=== PATIENT | male | born 1960 | race African-American/Black ===

== ENCOUNTER 2017-06-12 03:10 | Inpatient (IN) | payer SELFPAY ==
[2017-06-12 03:45] LABS: #Basophils 0.1 thou/uL (0.0-0.2); #Eosinphils 0.1 thou/uL (0.0-0.7); #Lymphocytes 1.4 thou/uL (1.20-3.40); %Basophils 0.4 % (0.0-1.0); %Eosinophils 0.3 % (0.0-10.0); %Lymphocytes 8.2 % (21.0-51.0); %Monocytes 5.8 % (0.0-10.0); %Neutrophils 85.3 % (42.0-75.0); Hemoglobin 16.6 g/dL (14.0-18.0); Mean Corpuscular HGB CONC 32.9 g/dL (32.0-36.0); Mean Corpuscular Hemoglobin 31.2 pg (27.0-31.0); Mean Platelet Volume 8.2 fL (7.4-10.4); Platelet Count 252 thou/uL (130-400); RBC Distribution Width 14.4 % (11.5-14.5); White Blood Cell (WBC) Count 16.4 thou/uL (4.8-10.8)
[2017-06-12 04:00] LABS: ALT (SGPT) 52 U/L (8-55); AST (SGOT) 44 U/L (5-34); Albumin 4.2 g/dL (3.5-5.0); Alkaline Phosphatase 80 U/L (40-150); Anion Gap 17 mmol/L (10-20); BUN (Urea Nitrogen) 15 mg/dL (8.4-25.7); Bilirubin, Total 0.7 mg/dL (0.2-1.2); Calc. Creatinine Clearance 0 mL/min (70-130); Calcium 9.8 mg/dL (7.8-10.44); Carbon Dioxide 22 mmol/L (22-29); Chloride 102 mmol/L (98-107); Estimated GFR-MDRD 79; Globulin 3.1 g/dL (2.4-3.5); Glucose 108 mg/dL (70-105); Lipase 77 U/L (8-78); Potassium 4.4 mmol/L (3.5-5.1); Protein, Total 7.3 g/dL (6.0-8.3); Sodium 137 mmol/L (136-145)
[2017-06-12 04:02] LABS: CKMB 4.6 ng/mL (0-6.6)
[2017-06-12 04:09] LABS: Troponin I 0.036 ng/mL (< 0.028)
[2017-06-12 04:12] LABS: PTT 110.4 SEC (22.9-36.1); Prothrombin Time 13.1 SEC (12.0-14.7)
[2017-06-12] MEDS ORDERED: Heparin 10,000 UNITS/1 ML VIAL ONE (04:17)
[2017-06-12] MEDS ORDERED: Fentanyl 100 MCG/2 ML VIAL ONE (04:22)
[2017-06-12] MEDS ORDERED: Aggrastat 12.5 MG/250 ML 250 ML ONE (04:22)
[2017-06-12] MEDS ORDERED: Adenosine 6 MG/2 ML VIAL ONE (04:26)
[2017-06-12] MEDS ORDERED: Nitroglycerin 100MG/250ML BOT 250 ML ONE (04:26)
[2017-06-12] MEDS ORDERED: Morphine 2 MG/ML SYRINGE SLOW IVP PRN (05:18)
[2017-06-12] MEDS ORDERED: Nitroglycerin 0.4 MG TAB 1 EACH SL PRN (05:18)
[2017-06-12] MEDS ORDERED: Ondansetron ODT 4 MG TAB PO PRN (05:21)
[2017-06-12] MEDS ORDERED: Acetaminophen 325 MG TAB PO PRN (05:21)
[2017-06-12] MEDS ORDERED: Aggrastat 12.5 MG/250 ML 250 ML IVPB SCH (05:30)
[2017-06-12] MEDS ORDERED: Sodium Chloride 0.9% 1,000 ML IV SCH (05:30)
[2017-06-12 06:00] VITALS: BMI 25.7
[2017-06-12 06:25] LABS: #Lymphocytes 1.2 thou/uL (1.20-3.40); #Monocytes 1.1 thou/uL (0.11-0.59); #Neutrophils 11.8 thou/uL (1.40-6.50); %Basophils 0.2 % (0.0-1.0); %Eosinophils 0.3 % (0.0-10.0); %Lymphocytes 8.3 % (21.0-51.0); %Monocytes 7.6 % (0.0-10.0); %Neutrophils 83.7 % (42.0-75.0); Hemoglobin 16.4 g/dL (14.0-18.0); Mean Corpuscular HGB CONC 31.6 g/dL (32.0-36.0); Mean Corpuscular Hemoglobin 30.5 pg (27.0-31.0); Mean Corpuscular Volume 96.5 fl (80.0-94.0); Mean Platelet Volume 8.4 fL (7.4-10.4); Platelet Count 263 thou/uL (130-400); RBC Distribution Width 14.5 % (11.5-14.5); Red Blood Cell (RBC) Count 5.37 mill/uL (4.70-6.10); White Blood Cell (WBC) Count 14.1 thou/uL (4.8-10.8)
[2017-06-12] MEDS ORDERED: TICAGRELOR 90 MG TABLET ONE (06:33)
--- NOTE | 2017-06-12 06:36 | HP ---
CHIEF COMPLAINT: Acute anterior myocardial infarction. HISTORY OF PRESENT ILLNESS: Mr. Cosme is a 56-year-old gentleman who comes to the hospital for chest pain. He was woken up at 1:30 a.m. with severe substernal chest pain. He came in about 3:00 a.m. and EKG was performed and showed evidence of anterior ST elevations, with also eleva tions in the inferior leads. The Collections Agent was activated and we took him emergently to the catheteriz ation lab when he was found to have an occluded distal LAD, had a thrombus there. This was wired suc cessfully, ballooned open, but it did not really open up. We did manual thrombectomy and actually to ok out large amounts of thrombus and the artery actually looked much better afterwards. We could not find a focal lesion to stent and we also did OCT of the LAD to make sure we were not missing any ulc erated plaque in the mid vessel at a bifurcation and this showed that there was some stenosis there, but nothing significant. There was no focal area of stenosis to place a stent in, the area looked mu ch better at the end of the procedure and his pain was gone. An Angio-Seal was placed in his right g roin and he was started on Aggrastat. PAST MEDICAL HISTORY: None. PAST SURGICAL HISTORY: None. MEDICATIONS: None. ALLERGIES: No known drug allergies. SOCIAL HISTORY: He smokes. He states he smokes about 5 cigarettes a day, sometimes he does not smok e at all. He drinks probably a beer a day, maybe a little more some other days. No drug use. FAMILY HISTORY: No early coronary artery disease. REVIEW OF SYSTEMS: A 12-point review of systems done, it was all negative unless stated in the histo ry of present illness. PHYSICAL EXAMINATION: VITAL SIGNS: Temperature 97.2, pulse 90, respiratory rate 18, satting 98% on 2 liters, blood pressur e 164/98. GENERAL: Awake, alert, oriented x3, in no distress. HEENT: Normocephalic, atraumatic. NECK: Supple. LUNGS: Clear. CARDIOVASCULAR: S1, S2, no S3 or S4. No murmurs, no rubs. ABDOMEN: Soft, positive bowel sounds. EXTREMITIES: No edema. SKIN: Warm and dry. LABORATORY WORK: Reviewed. White count of 16, hemoglobin 16, hematocrit 50, platelet count of 252. Coags were reviewed. Chemistry was reviewed. Troponin was 0.036 first draw, normal BUN and creatin ine, GFR 79. EKG: ST elevation in the anterior leads with lateral reciprocal changes and also elevations in the i nferior leads. Suggestive of a large wraparound in the LAD. ASSESSMENT AND PLAN: 1. Acute anterior ST elevation myocardial infarction. 2. Hypertension. 3. Tobacco abuse. PLAN: 1. He only received thrombectomy and there was no focal area to stent, so we will continue Aggrastat for a total of 12 hours. This can be stopped at that time and we will continue dual antiplatelet th erapy after that with Plavix and aspirin. He otherwise is pain free now and his STs have completely resolved. 2. We will do PPI for stress ulcer prophylaxis. 3. Echocardiogram pending. 4. We will get urine drug screen, lipid profile and BNP to have a baseline. 5. Code status is full code. 6. Disposition: Pending clinical evolution.
[2017-06-12 06:53] LABS: Cardiac Risk 2.3 (Less than 4.5)
[2017-06-12 06:55] LABS: Troponin I 8.272 ng/mL (< 0.028)
[2017-06-12 07:02] LABS: CKMB 43.3 ng/mL (0-6.6)
[2017-06-12 07:08] LABS: Amphetamine Not Detected (NotDetected); Barbiturates Screen Not Detected (NotDetected); Benzodiazepine Screen Not Detected (NotDetected); Cocaine Metabolite Screen Detected (NotDetected); Medtox Control Line Valid? VALID (VALID); Medtox Reader # READER 1; Methadone Not Detected (NotDetected); Methamphetamine Not Detected (NotDetected); Opiate Screen Not Detected (NotDetected); Oxycodone Screen Not Detected (NotDetected); Phencyclidine (PCP) Not Detected (NotDetected); THC/Cannabinoid Screen Not Detected (NotDetected); Tricyclic Screen Not Detected (NotDetected)
[2017-06-12] MEDS ORDERED: diphenhydrAMINE 50 MG/ML VIAL IVP SCH (08:30)
--- NOTE | 2017-06-12 08:42 | RAD ---
SINGLE VIEW OF THE CHEST: Comparison: None. History: Chest pain. FINDINGS: Single view of the chest shows a normal sized cardiomediastinal silhouette. There is no evidence of c onsolidation, mass, or pleural effusion. The bones are unremarkable. IMPRESSION: No evidence of acute cardiopulmonary disease. POS: OFF
--- NOTE | 2017-06-12 10:31 | CON ---
DATE OF CONSULTATION: 06/12/2017 He is a 56-year-old gentleman who was seen yesterday in the ER with chest pain early in the morning. Crushing pain, woke him up from sleep. Vomiting. He was seen by Dr. Simental, property technician, last night. He had a Physician Compensation Analyst procedure. Please review his note. He had an acute anterior lateral myocardial infarction. He had a PTCA with atherectomy done. Apparently no stents were placed in. Postop ICU, the reason for consultation. He has smoked he says off and on for most of his life without any prior history of TB, pneumonia or asthma. He has cocain e in his urine. He does use marijuana. . PAST MEDICAL HISTORY: Kidney stones. PAST SURGICAL HISTORY: None. CHRONIC MEDICATIONS: None. ALLERGIES: None. 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 PHYSICAL EXAMINATION: VITAL SIGNS: Blood pressure 160/100, pulse 110. Sats are 93-94, respirations 18. CHEST: Chest revealed bilateral wheezing. CARDIAC: Normal S1-S2. No gallops. ABDOMEN: Soft. No masses. LABORATORY: White count of 14,000, H&H 10 and 31, platelet count is normal. Troponin is 8. EKG nhi ws the above-mentioned anterolaterally ID. Cocaine in his urine. Chest x-ray was normal. IMPRESSION: 1. Status post anterolateral myocardial infarction, status post emergency cardiac catheterization. 2. Status post atherectomy. 3. Tobacco abuse. 4. Bronchospasm. 5. Substance abuse. PLAN: I have started nebs, continue supportive care, continue antiplatelet therapy as per Cardiology . I will follow while in the [facility].
[2017-06-12] MEDS: Aspirin 325 MG TAB PO SCH (10:39)
[2017-06-12] MEDS: Carvedilol 3.125 MG TAB PO SCH ×2 (10:40→20:05)
[2017-06-12] MEDS: Clopidogrel Bisulfate 75 MG TAB PO SCH (10:40)
[2017-06-12] MEDS ORDERED: Iopamidol 370 76% 100 ML VIAL ONE (11:45)
[2017-06-12] MEDS ORDERED: Iopamidol 370 76% 50 ML VIAL FS ONE (11:45)
[2017-06-12 12:04] LABS: #Lymphocytes 0.9 thou/uL (1.20-3.40); #Monocytes 1.2 thou/uL (0.11-0.59); #Neutrophils 14.5 thou/uL (1.40-6.50); %Basophils 0.2 % (0.0-1.0); %Eosinophils 0.2 % (0.0-10.0); %Lymphocytes 5.4 % (21.0-51.0); %Monocytes 7.4 % (0.0-10.0); %Neutrophils 86.8 % (42.0-75.0); Hemoglobin 16.4 g/dL (14.0-18.0); Mean Corpuscular HGB CONC 32.4 g/dL (32.0-36.0); Mean Corpuscular Hemoglobin 31.1 pg (27.0-31.0); Mean Corpuscular Volume 96.1 fl (80.0-94.0); Mean Platelet Volume 8.6 fL (7.4-10.4); Platelet Count 267 thou/uL (130-400); RBC Distribution Width 14.6 % (11.5-14.5); Red Blood Cell (RBC) Count 5.28 mill/uL (4.70-6.10); White Blood Cell (WBC) Count 16.7 thou/uL (4.8-10.8)
[2017-06-12 12:56] LABS: Troponin I 14.056 ng/mL (< 0.028)
[2017-06-12 12:57] LABS: CKMB 81.4 ng/mL (0-6.6)
[2017-06-12] MEDS ORDERED: Heparin 10,000 UNITS/ 10 ML VIAL ONE (15:03)
[2017-06-12] MEDS ORDERED: Nitroglycerin 0.4 MG TAB (25 Tab Bottle) ONE (15:03)
[2017-06-12] MEDS ORDERED: Sodium Chloride 0.9% (PF) 10 ML VIAL ONE (15:03)
[2017-06-12] MEDS ORDERED: Metoprolol Tartrate 5 MG/5 ML VIAL ONE (15:03)
[2017-06-12 17:43] LABS: #Basophils 0.1 thou/uL (0.0-0.2); #Lymphocytes 1.5 thou/uL (1.20-3.40); #Monocytes 1.9 thou/uL (0.11-0.59); #Neutrophils 11.4 thou/uL (1.40-6.50); %Basophils 0.3 % (0.0-1.0); %Eosinophils 0.1 % (0.0-10.0); %Lymphocytes 10.1 % (21.0-51.0); %Monocytes 12.5 % (0.0-10.0); %Neutrophils 76.9 % (42.0-75.0); Hemoglobin 14.5 g/dL (14.0-18.0); Mean Corpuscular HGB CONC 33.3 g/dL (32.0-36.0); Mean Corpuscular Hemoglobin 31.5 pg (27.0-31.0); Mean Corpuscular Volume 94.6 fl (80.0-94.0); Mean Platelet Volume 7.9 fL (7.4-10.4); Platelet Count 243 thou/uL (130-400); RBC Distribution Width 14.2 % (11.5-14.5); Red Blood Cell (RBC) Count 4.61 mill/uL (4.70-6.10); White Blood Cell (WBC) Count 14.8 thou/uL (4.8-10.8)
[2017-06-12] MEDS: Atorvastatin Calcium 40 MG TAB PO SCH (20:05)
[2017-06-12] MEDS ORDERED: FLU VACC QS2017-18 36 mo. & older 0.5 ML SYRINGE IM ONE (21:00)
[2017-06-12 23:32] LABS: #Eosinphils 0.1 thou/uL (0.0-0.7); #Lymphocytes 1.6 thou/uL (1.20-3.40); #Monocytes 1.6 thou/uL (0.11-0.59); #Neutrophils 10.4 thou/uL (1.40-6.50); %Basophils 0.3 % (0.0-1.0); %Eosinophils 0.5 % (0.0-10.0); %Lymphocytes 11.9 % (21.0-51.0); %Monocytes 11.7 % (0.0-10.0); %Neutrophils 75.6 % (42.0-75.0); Hemoglobin 14.1 g/dL (14.0-18.0); Mean Corpuscular HGB CONC 33.6 g/dL (32.0-36.0); Mean Corpuscular Hemoglobin 31.7 pg (27.0-31.0); Mean Corpuscular Volume 94.4 fl (80.0-94.0); Mean Platelet Volume 7.9 fL (7.4-10.4); Platelet Count 242 thou/uL (130-400); RBC Distribution Width 14.2 % (11.5-14.5); Red Blood Cell (RBC) Count 4.43 mill/uL (4.70-6.10); White Blood Cell (WBC) Count 13.8 thou/uL (4.8-10.8)
[2017-06-13 05:20] LABS: #Basophils 0.1 thou/uL (0.0-0.2); #Eosinphils 0.1 thou/uL (0.0-0.7); #Lymphocytes 1.7 thou/uL (1.20-3.40); #Monocytes 1.3 thou/uL (0.11-0.59); #Neutrophils 7.9 thou/uL (1.40-6.50); %Basophils 0.7 % (0.0-1.0); %Eosinophils 0.7 % (0.0-10.0); %Lymphocytes 15.2 % (21.0-51.0); %Monocytes 12.1 % (0.0-10.0); %Neutrophils 71.4 % (42.0-75.0); Hemoglobin 13.8 g/dL (14.0-18.0); Mean Corpuscular HGB CONC 33.2 g/dL (32.0-36.0); Mean Corpuscular Hemoglobin 31.2 pg (27.0-31.0); Mean Corpuscular Volume 94.2 fl (80.0-94.0); Mean Platelet Volume 8.1 fL (7.4-10.4); Platelet Count 230 thou/uL (130-400); RBC Distribution Width 14.2 % (11.5-14.5); Red Blood Cell (RBC) Count 4.41 mill/uL (4.70-6.10); White Blood Cell (WBC) Count 11.1 thou/uL (4.8-10.8)
[2017-06-13 05:32] LABS: ALT (SGPT) 46 U/L (8-55); AST (SGOT) 88 U/L (5-34); Albumin 3.5 g/dL (3.5-5.0); Alkaline Phosphatase 67 U/L (40-150); Anion Gap 15 mmol/L (10-20); BUN (Urea Nitrogen) 15 mg/dL (8.4-25.7); Bilirubin, Total 1.1 mg/dL (0.2-1.2); Calc. Creatinine Clearance 64 mL/min (70-130); Calcium 9.2 mg/dL (7.8-10.44); Carbon Dioxide 23 mmol/L (22-29); Chloride 104 mmol/L (98-107); Estimated GFR-MDRD 62; Globulin 2.7 g/dL (2.4-3.5); Glucose 122 mg/dL (70-105); Potassium 4.1 mmol/L (3.5-5.1); Protein, Total 6.2 g/dL (6.0-8.3); Sodium 138 mmol/L (136-145)
[2017-06-13 08:22] LABS: #Basophils 0.1 thou/uL (0.0-0.2); #Eosinphils 0.1 thou/uL (0.0-0.7); #Lymphocytes 1.6 thou/uL (1.20-3.40); #Monocytes 1.2 thou/uL (0.11-0.59); #Neutrophils 8.2 thou/uL (1.40-6.50); %Basophils 0.5 % (0.0-1.0); %Eosinophils 0.6 % (0.0-10.0); %Lymphocytes 14.2 % (21.0-51.0); %Neutrophils 73.7 % (42.0-75.0); Hemoglobin 13.9 g/dL (14.0-18.0); Mean Corpuscular HGB CONC 31.8 g/dL (32.0-36.0); Mean Corpuscular Hemoglobin 30.4 pg (27.0-31.0); Mean Corpuscular Volume 95.4 fl (80.0-94.0); Platelet Count 222 thou/uL (130-400); RBC Distribution Width 14.2 % (11.5-14.5); Red Blood Cell (RBC) Count 4.58 mill/uL (4.70-6.10); White Blood Cell (WBC) Count 11.1 thou/uL (4.8-10.8)
[2017-06-13] MEDS: Clopidogrel Bisulfate 75 MG TAB PO SCH (11:01)
[2017-06-13] MEDS: Aspirin 325 MG TAB PO SCH (11:01)
[2017-06-13] MEDS: Carvedilol 3.125 MG TAB PO SCH (11:01)
[2017-06-13 12:08] LABS: #Basophils 0.1 thou/uL (0.0-0.2); #Eosinphils 0.1 thou/uL (0.0-0.7); #Lymphocytes 1.4 thou/uL (1.20-3.40); #Monocytes 1.6 thou/uL (0.11-0.59); #Neutrophils 9.2 thou/uL (1.40-6.50); %Basophils 0.5 % (0.0-1.0); %Eosinophils 0.7 % (0.0-10.0); %Lymphocytes 11.1 % (21.0-51.0); %Monocytes 12.8 % (0.0-10.0); Hemoglobin 14.1 g/dL (14.0-18.0); Mean Corpuscular HGB CONC 32.9 g/dL (32.0-36.0); Mean Corpuscular Hemoglobin 31.2 pg (27.0-31.0); Mean Corpuscular Volume 94.8 fl (80.0-94.0); Mean Platelet Volume 8.2 fL (7.4-10.4); Platelet Count 233 thou/uL (130-400); RBC Distribution Width 14.1 % (11.5-14.5); Red Blood Cell (RBC) Count 4.51 mill/uL (4.70-6.10); White Blood Cell (WBC) Count 12.2 thou/uL (4.8-10.8)
--- NOTE | 2017-06-13 15:27 | PRG ---
DATE OF SERVICE: 06/12/2017 SUBJECTIVE: Mr. Robson Cosme, status post cardiac catheterization. This morning, he is doing well. No cough, no wheezing, no shortness of breath. PHYSICAL EXAMINATION: VITAL SIGNS: Sats are 95% on room air, pulse 80, blood pressure 128/80, respirations 18. CHEST: No wheezing, no crackles. CARDIAC: Normal S1, S2. No gallops. ABDOMEN: Soft, no masses. IMPRESSION: 1. Tobacco abuse. 2. Chronic obstructive pulmonary disease. 3. Cardiac catheterization. PLAN: Continue present treatment. Disposition as per Cardiology.
--- NOTE | 2017-06-13 17:03 | PDOC.CTH ---
Cardiology Progress Note - Subjective He is doing well. He has no chest pain, tightness, pressure, SOB. He is doing well. His groin is not oozing anymore. - Objective Vital Signs Temp Pulse Pulse Pulse Resp BP BP 06/13/17 14:14 76 12 06/13/17 12:00 97.8 F 89 18 06/13/17 09:53 81 105 H 145/88 H 116/73 06/13/17 08:00 97.4 F L 89 18 06/13/17 07:00 73 12 BP Pulse Ox Pulse Ox Pulse Ox 06/13/17 14:14 06/13/17 12:00 135/78 99 06/13/17 09:53 99 98 06/13/17 08:00 116/73 98 06/13/17 07:00 Weight 173 lb 14.4 oz 06/12/17 06/13/17 06/14/17 06:59 06:59 06:59 Intake Total 120 2554 600 Output Total 950 1650 Balance -830 904 600 - Physical Examination General/Neuro: alert & oriented x3, NAD Neck: no JVD present Lungs: CTA, unlabored respirations Heart: RRR Abdomen: NT/ND Extremities: other: (no edema) - Telemetry Telemetry Rhythm: NSR - Labs Result Diagrams: 06/13/17 11:52 06/13/17 04:46 Troponin/CKMB CK-MB (CK-2) 81.4 ng/mL (0-6.6) H* 06/12/17 11:54 Troponin I 14.056 ng/mL (< 0.028) H* 06/12/17 11:54 - Assessment/Plan 1. Acute anterior STEMI 2. Substance abuse. + Cocaine 3. Normal LV function, PLAN: - Will stop BB. - Continue Plavix and aspirin for life as well as statin - Counselled on cessation of cocaine use. - Will discharge home in the morning.
[2017-06-13 18:22] LABS: #Eosinphils 0.1 thou/uL (0.0-0.7); #Lymphocytes 1.2 thou/uL (1.20-3.40); #Monocytes 0.8 thou/uL (0.11-0.59); #Neutrophils 5.2 thou/uL (1.40-6.50); %Basophils 0.6 % (0.0-1.0); %Lymphocytes 16.5 % (21.0-51.0); %Monocytes 10.3 % (0.0-10.0); %Neutrophils 71.6 % (42.0-75.0); Hemoglobin 14.2 g/dL (14.0-18.0); Mean Corpuscular HGB CONC 32.2 g/dL (32.0-36.0); Mean Corpuscular Hemoglobin 30.9 pg (27.0-31.0); Platelet Count 90 thou/uL (130-400); RBC Distribution Width 14.9 % (11.5-14.5); Red Blood Cell (RBC) Count 4.61 mill/uL (4.70-6.10); White Blood Cell (WBC) Count 7.3 thou/uL (4.8-10.8)
[2017-06-13 18:23] LABS: PLT Morphology Comment Appears Decreased; RBC Morphology Normal
[2017-06-13] MEDS: Atorvastatin Calcium 40 MG TAB PO SCH (21:30)
[2017-06-13 23:29] LABS: #Basophils 0.1 thou/uL (0.0-0.2); #Eosinphils 0.1 thou/uL (0.0-0.7); #Lymphocytes 1.8 thou/uL (1.20-3.40); #Monocytes 1.4 thou/uL (0.11-0.59); #Neutrophils 6.5 thou/uL (1.40-6.50); %Basophils 0.6 % (0.0-1.0); %Monocytes 13.9 % (0.0-10.0); %Neutrophils 66.6 % (42.0-75.0); Hemoglobin 12.7 g/dL (14.0-18.0); Mean Corpuscular HGB CONC 33.2 g/dL (32.0-36.0); Mean Corpuscular Hemoglobin 31.5 pg (27.0-31.0); Mean Corpuscular Volume 94.8 fl (80.0-94.0); Mean Platelet Volume 7.9 fL (7.4-10.4); Platelet Count 203 thou/uL (130-400); Red Blood Cell (RBC) Count 4.04 mill/uL (4.70-6.10); White Blood Cell (WBC) Count 9.7 thou/uL (4.8-10.8)
--- NOTE | 2017-06-14 00:18 | EKG ---
Test Reason : POST BALLOON Blood Pressure : / mmHG Vent. Rate : 079 BPM Atrial Rate : 079 BPM P-R Int : 156 ms QRS Dur : 086 ms QT Int : 404 ms P-R-T Axes : 077 -26 031 degrees QTc Int : 463 ms Normal sinus rhythm Inferior infarct (cited on or before 12-JUN-2017) Abnormal ECG When compared with ECG of 12-JUN-2017 03:38, (Unconfirmed) Serial changes of evolving Inferior infarct Present Confirmed by Jessica SAWYER ([id number]) on 06/14/2017 12:17:30 AM Referred By: WILLIS Confirmed By:Jessica SAWYER
[2017-06-14 05:09] LABS: #Eosinphils 0.1 thou/uL (0.0-0.7); #Lymphocytes 1.5 thou/uL (1.20-3.40); #Monocytes 1.2 thou/uL (0.11-0.59); #Neutrophils 6.4 thou/uL (1.40-6.50); %Basophils 0.4 % (0.0-1.0); %Eosinophils 1.4 % (0.0-10.0); %Lymphocytes 16.4 % (21.0-51.0); %Monocytes 13.1 % (0.0-10.0); %Neutrophils 68.6 % (42.0-75.0); Hemoglobin 12.9 g/dL (14.0-18.0); Mean Corpuscular HGB CONC 33.1 g/dL (32.0-36.0); Mean Corpuscular Hemoglobin 31.5 pg (27.0-31.0); Platelet Count 216 thou/uL (130-400); Red Blood Cell (RBC) Count 4.09 mill/uL (4.70-6.10); White Blood Cell (WBC) Count 9.3 thou/uL (4.8-10.8)
[2017-06-14 05:25] LABS: ALT (SGPT) 35 U/L (8-55); AST (SGOT) 47 U/L (5-34); Albumin 3.3 g/dL (3.5-5.0); Alkaline Phosphatase 62 U/L (40-150); Anion Gap 12 mmol/L (10-20); BUN (Urea Nitrogen) 16 mg/dL (8.4-25.7); Bilirubin, Total 0.9 mg/dL (0.2-1.2); Calc. Creatinine Clearance 65 mL/min (70-130); Calcium 8.8 mg/dL (7.8-10.44); Carbon Dioxide 26 mmol/L (22-29); Chloride 104 mmol/L (98-107); Estimated GFR-MDRD 64; Globulin 2.6 g/dL (2.4-3.5); Glucose 103 mg/dL (70-105); Potassium 3.9 mmol/L (3.5-5.1); Protein, Total 5.9 g/dL (6.0-8.3); Sodium 138 mmol/L (136-145)
[2017-06-14 08:15] VITALS: BP 125/76; TEMP 98.9
--- NOTE | 2017-06-14 08:33 | DIS ---
DATE OF DISCHARGE: 06/14/2017 DISCHARGING PHYSICIAN: Jj Simental M.D. PRIMARY DIAGNOSES: 1. Anterior ST elevation myocardial infarction. 2. Substance abuse. PROCEDURES PERFORMED: 1. Echocardiogram. 2. Left heart catheterization. 3. Balloon angioplasty of the LAD and manual thrombectomy. 4. No stent was placed. SUMMARY: Mr. Cosme is a pleasant 56-year-old gentleman who comes to the hospital f or chest pain and was diagnosed with anterior ST elevations and taken emergently to the catheterizati on lab where he was found to have a blood clot in the distal LAD. This was wired, ballooned open and without any improvement we then had to do manual thrombectomy and restore flow successfully. There was no focal lesion or ulcerative plaque that could be stented, so he was treated with 2 B3 inhibitor s for 12 hours. He did well postoperatively. His echocardiogram showed normal LV function with no m ajor issues. He has done well postoperatively. His urine drug screen was positive for cocaine. We counseled him on substance cessation and he denied using any cocaine. He thinks it is from a cup dang t a friend gave him that had some cocaine in it. His blood pressure is borderline low to start any A CE inhibitors or beta lamar, so he will only go home on dual antiplatelet therapy and high dose sta tins. DISCHARGE MEDICATIONS: 1. Aspirin 325 mg a day. 2. Plavix 75 mg a day. 3. Lipitor 80 mg p.o. at bedtime. 4. No VALE inhibitor or beta lamar due to borderline low blood pressure. FOLLOW UP APPOINTMENTS: 1. Follow up appointment with myself in 1 month. 2. With primary care doctor in 2 weeks. Over 30 minutes were spent at bedside on discharge counseling.
[2017-06-14] MEDS: Clopidogrel Bisulfate 75 MG TAB PO SCH (10:21)
[2017-06-14] MEDS: Aspirin 325 MG TAB PO SCH (10:21)
--- NOTE | 2017-06-15 18:09 | EKG ---
Test Reason : Blood Pressure : / mmHG Vent. Rate : 093 BPM Atrial Rate : 093 BPM P-R Int : 148 ms QRS Dur : 074 ms QT Int : 358 ms P-R-T Axes : 073 -07 074 degrees QTc Int : 445 ms Normal sinus rhythm Inferior infarct , possibly acute Anterolateral injury pattern * ACUTE ND * ST elevation II, III, aVF V3-V5 ST depression aVR Abnormal ECG Confirmed by CAROLINE WHITFIELD D.O. ([id number]), film and video editor JUDE JORDAN ([id number]) on 06/15/2017 6:09:23 PM Referred By: ROSEANN Confirmed By:CAROLINE WHITFIELD D.O.
--- NOTE | 2017-06-15 18:10 | EKG ---
Test Reason : Blood Pressure : / mmHG Vent. Rate : 077 BPM Atrial Rate : 077 BPM P-R Int : 148 ms QRS Dur : 088 ms QT Int : 392 ms P-R-T Axes : 076 -07 071 degrees QTc Int : 443 ms Normal sinus rhythm Inferior infarct , possibly acute Anterolateral injury pattern * ACUTE NC * Abnormal ECG No changes Confirmed by CAROLINE WHITFIELD D.O. ([id number]), brands editor JUDE JORDAN ([id number]) on 06/15/2017 6:09:35 PM Referred By: BILLIE WHITFIELD Confirmed By:CAROLINE WHITFIELD D.O.
--- NOTE | 2017-06-23 16:15 | EKG ---
Test Reason : Blood Pressure : / mmHG Vent. Rate : 072 BPM Atrial Rate : 072 BPM P-R Int : 144 ms QRS Dur : 088 ms QT Int : 384 ms P-R-T Axes : 074 -26 019 degrees QTc Int : 420 ms Normal sinus rhythm Inferior infarct (cited on or before 12-JUN-2017) Abnormal ECG When compared with ECG of 12-JUN-2017 07:01, (Unconfirmed) No significant change was found Confirmed by Jessica SAWYER ([id number]) on 06/23/2017 4:15:35 PM Referred By: WILLIS Confirmed By:Jessica SAWYER
== END 2017-06-14 14:05 | disposition home or self-care (01) | DRG 251 ==
LOC: EDBD 03:10 → ERS 03:10 → CCU 03:58 → SDC/OP 04:01 → CCU 04:02 → 2NO 21:50
PROVIDERS: ADMIT Internal Medicine Cardiovascular Disease; ATTEND Internal Medicine Cardiovascular Disease
PROC: 02703ZZ Dilation of Coronary Artery, One Artery, Percutaneous Approach (ICD-10-PCS; principal; 2017-06-12)
PROC: 02C03ZZ Extirpation of Matter from Coronary Artery, One Artery, Percutaneous Approach (ICD-10-PCS; 2017-06-12)
PROC: 4A023N7 Measurement of Cardiac Sampling and Pressure, Left Heart, Percutaneous Approach (ICD-10-PCS; 2017-06-12)
PROC: B2111ZZ Fluoroscopy of Multiple Coronary Arteries using Low Osmolar Contrast (ICD-10-PCS; 2017-06-12)
DX: I21.09 ST elevation (STEMI) myocardial infarction involving other coronary artery of anterior wall (principal); F14.10 Cocaine abuse, uncomplicated; F17.210 Nicotine dependence, cigarettes, uncomplicated; I10 Essential (primary) hypertension; J44.9 Chronic obstructive pulmonary disease, unspecified
CPT/HCPCS: 36415; 71045; 80053; 80061; 80306; 82553; 83690; 83880; 84484; 85025; 85347; 85610; 85730; 86850; 86900; 86901; 87804; 90471; 90682; 90732; 92924; 92978; 93005; 93010; 93306; 93454; 93798; 94640; 94760; 96374; 99152; 99153; A4216; C1725; C1757; C1760; C1769; G0008; G0009; J0153; J1200; J1644; J3010; J3246; J7620; Q0162; Q2036

== ENCOUNTER 2017-10-15 10:04 | Emergency (ER) | payer SELFPAY ==
[2017-10-15 10:36] LABS: Bilirubin Negative (Negative); Blood, Urine Negative (Negative); Clarity CLEAR (Clear); Glucose, Urine (Dipstick) Negative (Negative); Leukocyte Negative (Negative); Nitrite Negative (Negative); Protein, Urine (Dipstick) Negative (Neg-Trace); Specific Gravity, Urine 1.024 (1.002-1.036)
[2017-10-15] MEDS ORDERED: ISOVUE-370 76%-LOCM 1 ML ONE (11:02)
[2017-10-15] MEDS ORDERED: Ondansetron ODT 4 MG TAB ONE (11:22)
[2017-10-15] MEDS ORDERED: Morphine 4 MG/ML VIAL ONE (11:22)
[2017-10-15 11:35] LABS: #Basophils 0.1 thou/uL (0.0-0.2); #Eosinphils 0.2 thou/uL (0.0-0.7); #Lymphocytes 1.1 thou/uL (1.20-3.40); #Monocytes 0.7 thou/uL (0.11-0.59); #Neutrophils 4.6 thou/uL (1.40-6.50); %Basophils 0.7 % (0.0-1.0); %Lymphocytes 17.1 % (21.0-51.0); %Monocytes 10.2 % (0.0-10.0); %Neutrophils 68.9 % (42.0-75.0); Hemoglobin 14.4 g/dL (14.0-18.0); Mean Corpuscular HGB CONC 32.7 g/dL (32.0-36.0); Mean Corpuscular Hemoglobin 30.6 pg (27.0-31.0); Mean Corpuscular Volume 93.5 fl (80.0-94.0); Mean Platelet Volume 7.9 fL (7.4-10.4); Platelet Count 191 thou/uL (130-400); RBC Distribution Width 14.4 % (11.5-14.5); Red Blood Cell (RBC) Count 4.71 mill/uL (4.70-6.10); White Blood Cell (WBC) Count 6.7 thou/uL (4.8-10.8)
[2017-10-15 11:50] LABS: ALT (SGPT) 20 U/L (8-55); AST (SGOT) 24 U/L (5-34); Alkaline Phosphatase 79 U/L (40-150); Anion Gap 8 mmol/L (10-20); BUN (Urea Nitrogen) 21 mg/dL (8.4-25.7); Bilirubin, Total 0.4 mg/dL (0.2-1.2); Calc. Creatinine Clearance 0 mL/min (70-130); Calcium 9.5 mg/dL (7.8-10.44); Carbon Dioxide 27 mmol/L (22-29); Chloride 108 mmol/L (98-107); Estimated GFR-MDRD 57; Globulin 3.4 g/dL (2.4-3.5); Glucose 96 mg/dL (70-105); Lipase 75 U/L (8-78); Potassium 4.9 mmol/L (3.5-5.1); Protein, Total 7.4 g/dL (6.0-8.3); Sodium 138 mmol/L (136-145)
--- NOTE | 2017-10-15 13:43 | CT ---
CT ANGIO CHEST WITH CONTRAST: INDICATIONS: Chest pain. TECHNIQUE: Multiple axial tomograms obtained through the chest following pulmonary angio protocol with multiplan ar reconstruction and 3D post processing. FINDINGS: The pulmonary arteries show adequate opacification. No evidence of pulmonary embolus identified. Th ere are numerous scattered calcified granuloma seen in both lungs. There is at least one calcified n odule seen in the left mid lung, near the fissure, within the lingula. This measures approximately 4 mm. The mediastinum is unremarkable. Images through the upper abdomen show what appear to be numerous nonobstructing calculi in the upper collecting structures of both kidneys. These small calculi measure in the 1 to 2 mm range. IMPRESSION: 1. No evidence of pulmonary embolus. 2. No evidence of lung infiltrate. 3. Numerous calcified granuloma in both lungs. 4. At least one noncalcified nodule in the left mid lung field. A follow-up noncontrast CT chest in six months is recommended to assess stability. 5. Numerous nonobstructing calculi in the upper collecting structures of both kidneys. POS: JAMES
== END 2017-10-15 15:37 | disposition home or self-care (01) ==
LOC: ERS 10:04
DX: R10.9 Unspecified abdominal pain (principal); F17.210 Nicotine dependence, cigarettes, uncomplicated
CPT/HCPCS: 36415; 71275; 80053; 81003; 83690; 85025; 96361; 96374; J2270; Q0162

== ENCOUNTER 2018-05-22 19:34 | Inpatient (IN) | payer SELFPAY ==
[2018-05-22 20:14] LABS: #Basophils 0.1 thou/uL (0.0-0.2); #Lymphocytes 1.5 thou/uL (1.20-3.40); #Monocytes 0.8 thou/uL (0.11-0.59); #Neutrophils 8.6 thou/uL (1.40-6.50); %Basophils 0.5 % (0.0-1.0); %Eosinophils 0.3 % (0.0-10.0); %Lymphocytes 13.7 % (21.0-51.0); %Monocytes 7.2 % (0.0-10.0); %Neutrophils 78.3 % (42.0-75.0); Mean Corpuscular HGB CONC 33.1 g/dL (32.0-36.0); Mean Corpuscular Hemoglobin 31.4 pg (27.0-31.0); Mean Corpuscular Volume 95.1 fL (78.0-98.0); Mean Platelet Volume 8.6 fL (7.4-10.4); Platelet Count 200 thou/uL (130-400); RBC Distribution Width 13.9 % (11.5-14.5); Red Blood Cell (RBC) Count 5.08 mill/uL (4.70-6.10)
[2018-05-22 20:35] LABS: ALT (SGPT) 28 U/L (8-55); AST (SGOT) 25 U/L (5-34); Albumin 4.4 g/dL (3.5-5.0); Alkaline Phosphatase 87 U/L (40-150); Anion Gap 15 mmol/L (10-20); BUN (Urea Nitrogen) 16 mg/dL (8.4-25.7); Calc. Creatinine Clearance 0 mL/min (70-130); Calcium 10.1 mg/dL (7.8-10.44); Carbon Dioxide 25 mmol/L (22-29); Chloride 102 mmol/L (98-107); Estimated GFR-MDRD 58; Globulin 3.8 g/dL (2.4-3.5); Glucose 139 mg/dL (70-105); Protein, Total 8.2 g/dL (6.0-8.3); Sodium 138 mmol/L (136-145)
[2018-05-22] MEDS ORDERED: Morphine 4 MG/ML VIAL ONE (20:48)
[2018-05-22] MEDS ORDERED: Ondansetron PF 4 MG/2 ML Vial ONE (20:48)
[2018-05-22 21:14] LABS: Bilirubin Small (Negative); Blood, Urine Negative (Negative); Clarity CLEAR (Clear); Glucose, Urine (Dipstick) Negative (Negative); Leukocyte Negative (Negative); Nitrite Negative (Negative); Protein, Urine (Dipstick) 30 mg/dL (Neg-Trace)
[2018-05-22 21:16] LABS: Bacteria/HPF None Seen HPF (None Seen); Hyaline Casts/LPF 0-3 HYALINE CAST LPF (0-3 Hyaline); RBC/HPF 0-3 HPF (0-3); Squamous Epithelial 0-3 HPF (0-3); WBC/HPF None Seen HPF (0-3)
[2018-05-22 21:23] LABS: Amphetamine Not Detected (NotDetected); Barbiturates Screen Not Detected (NotDetected); Benzodiazepine Screen Not Detected (NotDetected); Cocaine Metabolite Screen Detected (NotDetected); Medtox Control Line Valid? VALID (VALID); Medtox Reader # READER 4; Methadone Not Detected (NotDetected); Methamphetamine Detected (NotDetected); Opiate Screen Not Detected (NotDetected); Oxycodone Screen Not Detected (NotDetected); Phencyclidine (PCP) Not Detected (NotDetected); THC/Cannabinoid Screen Not Detected (NotDetected); Tricyclic Screen Not Detected (NotDetected)
--- NOTE | 2018-05-22 21:40 | CT ---
BRAIN CT WITHOUT IV CONTRAST: 05/22/18 HISTORY: 57-year-old male with history of altered mental status for approximately three days. There is some minimal patchy perisulcal edema noted in the left Sylvian fissure region raising concer n for infarct which would probably be in the subacute phase or late acute phase. No evidence for mass effect or midline shift. No intra or extra-axial hemorrhage. IMPRESSION: Some minimal patchy perisulcal edema in the left Sylvian region concerning for left middle cerebral a rtery distribution infarct. No mass or bleed. Findings were discussed with Deirdre Gastelum at 8:35 p.m. Code CR POS: JAMES
[2018-05-22] MEDS ORDERED: Senokot S 8.6-50 MG TAB PO PRN (23:26)
[2018-05-22] MEDS ORDERED: Guaifenesin DM 100-10/5 ML UDCUP PO PRN (23:26)
[2018-05-22] MEDS ORDERED: Bisacodyl 10 MG SUPP PR PRN (23:26)
[2018-05-22] MEDS ORDERED: Ondansetron ODT 4 MG TAB PO PRN (23:26)
[2018-05-22] MEDS ORDERED: Bisacodyl 5 MG TAB PO PRN (23:26)
[2018-05-22] MEDS ORDERED: Labetalol HCl 100 MG/20 ML VIAL SLOW IVP PRN (23:26)
[2018-05-22] MEDS ORDERED: hydrALAZINE 20 MG/ML VIAL SLOW IVP PRN (23:26)
[2018-05-22] MEDS ORDERED: Calcium Carbonate 500 MG ChewTAB PO PRN (23:26)
[2018-05-22] MEDS ORDERED: Zolpidem Tartrate 5 MG TAB PO PRN (23:26)
[2018-05-22] MEDS ORDERED: Ondansetron PF 4 MG/2 ML Vial IVP PRN (23:26)
[2018-05-22] MEDS ORDERED: Loperamide HCl 2 MG CAP PO PRN (23:26)
--- NOTE | 2018-05-23 01:21 | HP ---
PRIMARY CARE PHYSICIAN: [facility] Call admission. REASON FOR ADMISSION: Stroke/altered mental status. HISTORY OF PRESENT ILLNESS: This is a 57-year-old male who was brought to emergency room for altered mental status. The patient was having difficulty in naming the object. He was not able to recognize family member by name, but the patient was knowing where he is, but he was having difficulty giving name. The patient also does not have any clue of for last couple of days. He has short-term memory loss. The patient did not have any focal, motor, or sensory symptoms. The patient was noted abnormal behaving this morning and the patient's sister also noticed similar things and that is why the patient was brought to emergency room for evaluation. In the emergency room, the patient had CT of brain, which showed finding suggestive of subacute CVA in left middle cerebral artery. As per the patient's family member, this is going on since 2 days and this symptoms more pronounced than noticed this morning. REVIEW OF SYSTEMS: CONSTITUTIONAL: Negative for weight loss or gain, ability to conduct usual activities. SKIN: Negative for rash, itching. EYES: Negative for double vision, pain. ENT/MOUTH: Negative for nose bleeding, neck stiffness, pain, tenderness. CARDIOVASCULAR: Negative for palpitations, dyspnea on exertion, orthopnea. RESPIRATORY: Negative for shortness of breath, wheezing, cough, hemoptysis, fever or night sweats. GASTROINTESTINAL: Negative for poor appetite, abdominal pain, heartburn, nausea, vomiting, constipation, or diarrhea. GENITOURINARY: Negative for urgency, frequency, dysuria, nocturia. MUSCULOSKELETAL: Negative for pain, swelling. NEUROLOGIC/PSYCHIATRIC: Negative for anxiety, depression. ALLERGY/IMMUNOLOGIC: Negative for skin rash, bleeding tendency. Please see my HPI for pertinent positives and negatives. All other review of systems reviewed and negative except as mentioned in HPI. PAST MEDICAL HISTORY: Hypertension. PAST SURGICAL HISTORY: Reviewed and negative. PAST PSYCHIATRIC HISTORY: Reviewed and negative. SOCIAL HISTORY: The patient drinks alcohol, 5 beers on daily basis. He smokes cigarette, 5 to 10 cigarettes on daily basis. His urine drug screen was also positive for methamphetamine and cocaine though the patient denies any illicit drug abuse. FAMILY HISTORY: No family history of coronary artery disease, stroke, or cancer. ALLERGIES: NO KNOWN DRUG ALLERGIES. CURRENT HOME MEDICATIONS: The patient is not taking any prescribed or non-prescribed medication. EMERGENCY ROOM COURSE: The patient was given IV fluids, Zofran, aspirin, and morphine 4 mg. PHYSICAL EXAMINATION: VITAL SIGNS: Currently blood pressure 155/93, pulse 93, respiratory rate 18, temperature 98.7, and saturation 99% on room air. Weight 76.4 kg. GENERAL: The patient is currently alert, awake. No obvious acute distress. HEENT: Head; normocephalic and atraumatic. Eyes; pupils are round and reactive to light. Extraocular muscle intact. ENT; oropharynx within normal limits. Moist mucous membranes. No oral lesion. No pharyngeal erythema. No exudate. NECK: Supple. No JVD. No thyromegaly. No carotid bruit. No jugular venous distention. LUNGS: Clear to auscultation without any rhonchi or rales. CARDIAC: S1, S2 regular. No murmur. No gallop. No rub. ABDOMEN: Soft. Bowel sounds present. Nontender. Nondistended. No organomegaly. No mass. No suprapubic tenderness. BACK: Unremarkable. No CVA tenderness. EXTREMITIES: Upper extremities; passive movement of all joints are normal. Lower extremities, no edema. Good distal pulsation. SKIN: No skin rash. HEMATOLOGIC: No lymphadenopathy. NEUROLOGIC: Nonfocal examination. SIGNIFICANT LABORATORY DATA: CBC; WBC 11.0, hemoglobin 16.0, and platelet 200. BMP; sodium 138, potassium 4.0, chloride 102, carbon dioxide 25, BUN 16, creatinine 1.51, glucose 139, and calcium 10.1. LFT; AST 25, ALT 28, alkaline phosphatase 87, and albumin 4.4. Cardiac enzyme negative. Ammonia level 49. Urinalysis unremarkable. Urine drug screen positive for methamphetamine and cocaine. CT brain showing patchy perisulcal edema in left sylvian region concerning from left MCA distribution infarct. ASSESSMENT AND PLAN: 1. Acute encephalopathy due to toxic metabolic etiology. 2. 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 3. Polysubstance abuse including methamphetamine and cocaine. 4. Hypertension. 5. Dyslipidemia. 6. Coronary artery disease. 7. Chronic kidney disease, stage 3. 8. Medication noncompliance. PLAN: Admission to stroke floor. Neurology consultation. Neuro-check every 4 hourly. Continue aspirin 325 mg daily, Lipitor 80 mg at bedtime, and Plavix 75 mg daily. Deep venous thrombosis prophylaxis with Lovenox 40 mg subcu daily. GI prophylaxis with Pepcid 20 mg p.o. b.i.d. We will obtain an MRI of brain and echocardiography as a part of stroke workup. We will check lipid profile, RPR, and homocysteine level tomorrow. The patient is given counseling to avoid illicit drugs. CODE STATUS: The patient is full code. The patient's sister is surrogate decision maker. DISPOSITION PLAN: Based on clinical course. Plan of care discussed with the patient and family member at bedside in the emergency room. Job ID: [id number]
[2018-05-23 06:01] LABS: #Basophils 0.1 thou/uL (0.0-0.2); #Eosinphils 0.1 thou/uL (0.0-0.7); #Lymphocytes 1.7 thou/uL (1.20-3.40); #Monocytes 0.8 thou/uL (0.11-0.59); #Neutrophils 4.3 thou/uL (1.40-6.50); %Eosinophils 1.5 % (0.0-10.0); %Monocytes 11.7 % (0.0-10.0); %Neutrophils 61.8 % (42.0-75.0); Hemoglobin 14.3 g/dL (14.0-18.0); Mean Corpuscular HGB CONC 32.7 g/dL (32.0-36.0); Mean Corpuscular Volume 94.9 fL (78.0-98.0); Mean Platelet Volume 8.6 fL (7.4-10.4); Platelet Count 188 thou/uL (130-400); RBC Distribution Width 13.9 % (11.5-14.5); Red Blood Cell (RBC) Count 4.62 mill/uL (4.70-6.10)
[2018-05-23 06:28] LABS: Anion Gap 13 mmol/L (10-20); BUN (Urea Nitrogen) 21 mg/dL (8.4-25.7); Calc. Creatinine Clearance 67 mL/min (70-130); Calcium 9.4 mg/dL (7.8-10.44); Carbon Dioxide 24 mmol/L (22-29); Cardiac Risk 2.3 (Less than 4.5); Chloride 107 mmol/L (98-107); Cholesterol 181 mg/dl (< 200 Desired); Estimated GFR-MDRD 66; Glucose 97 mg/dL (70-105); HDL Cholesterol 80 mg/dL (>60 Neg Risk); LDL Cholesterol, Calculated 87 mg/dL; Sodium 140 mmol/L (136-145); Triglycerides 68 mg/dL (Less than 150)
[2018-05-23 06:43] LABS: Syphilis Antibody Nonreactive (Nonreactive); Syphilis Antibody Index 0.12 S/CO (<1.00 Non-Reactive)
--- NOTE | 2018-05-23 09:42 | MRI ---
MRI BRAIN WITHOUT IV CONTRAST: 05/23/2018 HISTORY: Altered mental status. Abnormal CT exam. Stroke. COMPARISON: CT head from 05/22/2018. FINDINGS: As noted on the CT scan of the head, there is an area of restricted diffusion involving the left temp oral lobe, at the level of the sylvian fissure and the left temporal lobe, partially extending into t he inferior aspect of the parietal lobe, compatible with an acute infarction, in the distribution of the left middle cerebral artery. There are scattered punctate and patchy areas of increased FLAIR and T2 weighted signal intensity see n in the periventricular and subcortical white matter, likely reflective of chronic small vessel isch emic changes. The septum pellucidum and third ventricle are in the midline. The ventricular system is normal in si ze, shape, and position. There is mild cerebral volume loss. There is increased signal intensity seen on the T2 weighted images, as well as FLAIR images, within o ne of the M2 branches of the left middle cerebral artery, within the sylvian fissure, which may repre sent small thrombus or occlusion of this small trifurcation vessel; however, this is incompletely shaq ged due to plane of scanning on MRI evaluation. There is mild mucosal thickening in the ethmoid air cells bilaterally. The orbits and skull base are otherwise normal in appearance. IMPRESSION: 1. Acute infarction in the distribution of the left middle cerebral artery with an area of restricte d diffusion involving the left temporal lobe adjacent ot he sylvian fissure which probably extends pa rtially into the left parietal lobe. 2. Findings suggestive of thrombus/occlusion involving one of the M2 branches of the left middle cer ebral artery within the sylvian fissure. POS: JAMES
[2018-05-23] MEDS: Enoxaparin Sodium 40 MG/0.4 ML SYRINGE SC SCH (11:04)
[2018-05-23] MEDS: Clopidogrel Bisulfate 75 MG TAB PO SCH (11:05)
[2018-05-23] MEDS: Aspirin 325 MG TAB PO SCH (11:05)
[2018-05-23] MEDS: Famotidine 20 MG TAB PO SCH ×2 (11:05→21:03)
[2018-05-23] MEDS: HYDROcodone/Acetaminophen 5/325 mg Tablet PO PRN ×2 (11:05→16:17)
--- NOTE | 2018-05-23 11:55 | CT ---
CT ANGIOGRAM OF THE HEAD CT ANGIOGRAM OF THE NECK NONCONTRAST HEAD CT THREE D RENDERING: HISTORY: Left MCA distribution CVA. COMPARISON: None. CORRELATION: Noncontrast head CT 05/22/2018, brain MRI 05/23/2018. TECHNIQUE: A noncontrast head CT is performed in the axial plane. CT angiogram of the head and neck were perfor med in the axial plane. Three-dimensional reformatted images were submitted for interpretation. FINDINGS: NONCONTRAST HEAD CT: There are evolutionary changes compatible with a left MCA distribution infarct which have been demons trated on the MRI performed earlier today. No acute parenchymal hemorrhage. No midline shift. Basi lar cisterns are patent. Age-appropriate brain volume. There is an intact calvarium along with adeq uate aeration of the sinuses and mastoid air cells. Postcontrast images demonstrate expected loss of robertson-white matter differentiation in left MCA distri bution. Otherwise, cortical robertson-white matter differentiation is preserved. There appears to be a r emote lacunar infarct involving the right caudate nucleus. There is symmetric attenuation of the optic nerves and ocular rectus muscles. Bilateral ocular lense s are appropriately located. The aerodigestive tract is patent. No mucosal abnormality. Epiglottis has a normal caliber. Preepiglottic fat is preserved. There is no prevertebral soft tissue swellin g. Symmetric attenuation of the sternocleidomastoid muscles. Unremarkable thyroid gland. Symmetric att enuation of the parotid and submandibular glands. No evidence of lymphadenopathy by size criteria. Upper mediastinum and lung apices are unremarkable. Cervical spine vertebral body height is maintained. There is no fracture. There are varying degrees of central canal stenosis and foraminal narrowing on the basis of degenerative change. CT ANGIOGRAM: The aortic arch has a normal appearance. There appears to be a common origin of the left and right c arotid artery. RIGHT CAROTID: The right carotid artery has appropriate enhancement and luminal diameter.. No significant stenosis based upon NASCET criteria. LEFT CAROTID: The left common carotid artery, carotid bifurcation, and internal carotid artery have appropriate enh ancement and luminal diameter. No evidence of significant stenosis based upon NASCET criteria. Ther e is atherosclerosis involving the proximal left internal carotid artery. There is intrinsic hyperde nsity which likely represents small areas of calcified plaque. Atheromatous ulcer cannot be complete ly excluded. No significant stenosis based upon NASCET criteria. Subclavian arteries and cervicovertebral arteries are patent. The right vertebral artery is slightly larger on the contralateral side. CT ANGIOGRAM OF THE HEAD: The distal cervical and intracranial internal carotid arteries have symmetric enhancement and luminal diameter. ANTERIOR CIRCULATION: Symmetric enhancement and luminal diameter of the A1 and M1 segments. Proximal A2 segments have symm etric enhancement and luminal diameter. There are intrinsic hyperdensities on the noncontrast head C T along the sylvian fissure with associated abnormal signal on the axial T2 weighted images. There d oes not appear to be a corresponding filling defect in the proximal left MCA branches. Nevertheless, the possibility of an embolism in this region with associated infarct is still suspected. There is no evidence of occlusion. POSTERIOR CIRCULATION: Both PICA arteries are unremarkable. Both vertebral arteries supply a normal-appearing basilar arter y. T1 segments have symmetric enhancement and luminal diameter. IMPRESSION: 1. There is CT evidence of expected evolutionary changes involving the left middle cerebral artery d istribution compatible with a subacute infarct. Despite having hyperdensities and abnormal signal in tensities on recent imaging, there is no CT evidence of an abrupt occlusion involving proximal M2 bra nches. Smaller vascular occlusions cannot be excluded and are presumed to have occurred given what a ppears to be a subacute left middle cerebral artery distribution infarction. The possibility of reca nalization of some of these vessels should be considered. 2. No significant stenosis of the cervical carotid based upon NASCET criteria. There is atheroscler osis with intrinsic hyperdensity involving the proximal left internal carotid artery which may repres ent small areas of calcification in eccentric thrombus. However, the possibility of atheromatous ulc ers cannot be completely excluded. POS: JAMES
[2018-05-23] MEDS ORDERED: Iopamidol 370 76% 100 ML VIAL ONE (17:01)
[2018-05-23] MEDS: Atorvastatin Calcium 40 MG TAB PO SCH (21:03)
[2018-05-23] MEDS: Acetaminophen 325 MG TAB PO PRN (21:03)
--- NOTE | 2018-05-24 01:09 | CON ---
DATE OF CONSULTATION: CHIEF COMPLAINT: Acute stroke. HISTORY OF PRESENT ILLNESS: The patient could not give much medical history. He seemed very confused and he only complained of having headache on the left side of his head for the last 4 days. I reviewed his medical record and primarily, he seems to have come to the emergency room yesterday after being brought here by his family member. He could not recognize his family members and his sister brought him here. There was no focal deficits such as motor symptoms that were described and he has no ability to give any medical history unfortunately. The patient's daughter went to his house, he could not remember his own daughters name, but he went to work and co-workers also told the sister that he was not making any sense and he was brought to the ER complaining of retro-orbital left-sided headache. He denies using cocaine or any other recreational drugs, but he seems to have had positive testing for cocaine and amphetamines in the ER. PAST MEDICAL HISTORY: Hypertension. FAMILY HISTORY: Unknown to the patient. No family history is reported. PAST SURGICAL HISTORY: Unknown. SOCIAL HISTORY: He smokes daily and also drinks daily. ALLERGIES: NO KNOWN DRUG ALLERGIES. HOME MEDICATIONS: Unknown. REVIEW OF SYSTEMS: Not reliable. LABORATORY WORKUP: White count 7.0, hemoglobin 14.3, hematocrit 43.8, and platelets 188. Sodium 140, potassium 4, chloride 107, bicarb 24, BUN 21, and creatinine 1.35. Cholesterol panel within normal limits. Urinalysis is abnormal with positive protein and ketones. Urine tox screen is positive for cocaine and methamphetamine. His MRI scan of the brain was completed and his MRI showed acute infarction in the left middle cerebral artery distribution with an area of restricted diffusion in the left temporal lobe adjacent to the sylvian fissure, which extends partially into the left parietal lobe. He also has thrombus or occlusion involving M2 branch of the left MCA. His CT angiography which I requested today was also completed and on the CTA, there are evolutionary changes in the left MCA territory with subacute infarct. Despite having hyperdensities, abnormal signal intensity, there is no evidence of an abrupt occlusion involving the proximal M2 branches. Small vascular occlusion cannot be excluded and the possibility of recanalization should be considered. No stenosis or cervical carotid artery and there is atherosclerosis and hyperdensity in the left ICA territory, which may represent small areas of calcification and eccentric thrombus; however, possibility of atheromatous also cannot be completely excluded. PHYSICAL EXAMINATION: VITAL SIGNS: Blood pressure 151/94, pulse is 65, and temperature 99.2. GENERAL APPEARANCE: Well-built, well-nourished man, who seems comfortable, but very confused. CHEST: Clear vesicular breathing. CARDIOVASCULAR: S1, S2 heard. No murmurs. ABDOMEN: Soft, nontender. No organomegaly noted. NEUROLOGIC: Higher intellectual functions. He is not oriented to time, place, or person and seems confused, but is able to cooperate with the exam. Cranial nerves, he has normal extraocular movements. Tongue is midline. Normal sensation of face and no facial asymmetry noted. Normal elevation of palate. Motor exam; bulk normal, tone normal, although he is unable to focus on individual motor exam for each muscle group. His strength seems to be preserved with 5/5 strength in upper and lower extremities in iliopsoas, hamstrings, quadriceps, ankle dorsiflexion, plantar flexion, deltoid, biceps, triceps, wrist extension and flexion, finger extension and flexion bilaterally. Sensory difficult to assess. Cerebellar, normal [id number] and [id number]. IMPRESSION: The patient is a 57-year-old man with history of hypertension. He seems to have sudden onset of confusion and inability to recognize family members. He went to work, however, he was brought with this confusional episode. His examination shows significant disorientation and he is unable to communicate well, appears confused but he is cooperative enough to follow some of the neurological examination. His exam shows normal strength throughout. No pronator drift was noted. Normal cerebellar exam. His CT angiography findings are concerning, particularly with the ulceration mentioned in an ICA territory. The patient might have had a subacute infarct due to vasospasm, from cocaine or post occlusive recanalization of the artery itself in the left MCA territory. Luckily, he does not have much of motor deficit, but he remained with persistent confusion and this could be from his stroke itself. RECOMMENDATION: Aspirin for stroke prophylaxis. Please consult Vascular Surgery regarding the ICA territory ulcerations. We will complete stroke workup including echocardiogram and Neurology will follow up with you as needed. Job ID: [id number] [facility]
[2018-05-24] MEDS: HYDROcodone/Acetaminophen 5/325 mg Tablet PO PRN ×2 (03:30→08:28)
[2018-05-24] MEDS: Enoxaparin Sodium 40 MG/0.4 ML SYRINGE SC SCH (08:29)
[2018-05-24] MEDS: Famotidine 20 MG TAB PO SCH ×2 (08:29→20:09)
[2018-05-24] MEDS: Clopidogrel Bisulfate 75 MG TAB PO SCH (08:29)
[2018-05-24] MEDS: Aspirin 325 MG TAB PO SCH (08:29)
--- NOTE | 2018-05-24 10:13 | PDOC.PN ---
- Subjective Encounter Start Date: 05/24/18 Encounter Start Time: 07:10 -: old records requested/rev Patient seen and examined. No new complaints. No overnight events c/o headache on left side - Objective Resuscitation Status - Order Detail: 05/22/18 21:18 Resuscitation Status Routine Resuscitation Status: FULL: Full Resuscitation MAR Reviewed: Yes Vital Signs & Weight: Vital Signs (12 hours) Temp Pulse Resp BP Pulse Ox 05/24/18 08:00 98 F 60 16 140/83 100 05/24/18 04:00 98.4 F 64 19 124/72 98 05/24/18 00:00 99.1 F 60 18 133/76 98 Weight Admit Weight 177 lb Weight 177 lb I&O: 05/23/18 05/24/18 05/25/18 06:59 06:59 06:59 Intake Total 240 Balance 240 Result Diagrams: 05/23/18 05:47 05/23/18 05:47 Radiology Reviewed by me: Yes (MRI, CT angio noted) EKG Reviewed by me: Yes (nsr) Phys Exam - Physical Examination Constitutional: NAD HEENT: PERRLA, moist MMs, sclera anicteric Neck: no JVD, supple Respiratory: no wheezing, no rales, no rhonchi Cardiovascular: RRR, no significant murmur, no rub Gastrointestinal: soft, non-tender, no distention, positive bowel sounds Musculoskeletal: no edema, pulses present Neurological: non-focal, normal sensation, moves all 4 limbs Lymphatic: no nodes Psychiatric: normal affect, A&O x 3 Skin: no rash, normal turgor Dx/Plan (1) Arterial ischemic stroke, MCA (middle cerebral artery), left, acute Code(s): I63.512 - CEREB INFRC D/T UNSP OCCLS OR STENOS OF LEFT MID CEREB ART Status: Acute (2) CAD (coronary artery disease) Code(s): I25.10 - ATHSCL HEART DISEASE OF [place] CORONARY ARTERY W/O ANG PCTRS Status: Chronic (3) CKD (chronic kidney disease), stage III Code(s): N18.3 - CHRONIC KIDNEY DISEASE, STAGE 3 (MODERATE) Status: Chronic (4) Carotid atherosclerosis Code(s): I65.29 - OCCLUSION AND STENOSIS OF UNSPECIFIED CAROTID ARTERY Status : Chronic Qualifiers: Laterality: left Qualified Code(s): I65.22 - Occlusion and stenosis of left carotid artery (5) Dyslipidemia Code(s): E78.5 - HYPERLIPIDEMIA, UNSPECIFIED Status: Chronic (6) Hypertension Code(s): I10 - ESSENTIAL (PRIMARY) HYPERTENSION Status: Chronic (7) Polysubstance abuse Code(s): F19.10 - OTHER PSYCHOACTIVE SUBSTANCE ABUSE, UNCOMPLICATED Status: Chronic - Plan cont current plan of care, PT/OT * continue aspirin, plavix, lipitor. * add amlodipine * CT surgery consult as per neurology recommendation * medication reviewed as below * symptomatic treatment * counselled to avoid polysubstance abuse Review of Systems - Review of Systems ENT: negative: Ear Pain, Ear Discharge, Nose Pain, Nose Discharge, Nose Congestion, Mouth Pain, Mouth Swelling, Throat Pain, Throat Swelling, Other Respiratory: negative: Cough, Dry, Shortness of Breath, Hemoptysis, SOB with Excertion, Pleuritic Pain, Sputum, Wheezing Cardiovascular: negative: chest pain, palpitations, orthopnea, paroxysmal nocturnal dyspnea, edema, light headedness, other Gastrointestinal: negative: Nausea, Vomiting, Abdominal Pain, Diarrhea, Constipation, Melena, Hematochezia, Other Genitourinary: negative: Dysuria, Frequency, Incontinence, Hematuria, Retention , Other Musculoskeletal: negative: Neck Pain, Shoulder Pain, Arm Pain, Back Pain, Hand Pain, Leg Pain, Foot Pain, Other Skin: negative: Rash, Lesions, Minh, Bruising, Other - Medications/Allergies Allergies/Adverse Reactions: Allergies Allergy/AdvReac Type Severity Reaction Status Date / Time No Known Drug Allergies Allergy Verified 06/12/17 06:02 Medications: Current Medications Acetaminophen (Tylenol) 650 mg PO Q4H PRN PRN Reason: Headache/Fever/Mild Pain (1-3) Last Admin: 05/23/18 21:03 Dose: 650 mg Hydrocodone Bitart/Acetaminophen ([place] 5/325) 1 tab PO Q4H PRN PRN Reason: Moderate Pain (4-6) Last Admin: 05/24/18 08:28 Dose: 1 tab Aspirin (Aspirin) 325 mg PO DAILY [facility] Last Admin: 05/24/18 08:29 Dose: 325 mg Atorvastatin Calcium (Lipitor) 80 mg PO HS [facility] Last Admin: 05/23/18 21:03 Dose: 80 mg Bisacodyl (Dulcolax) 10 mg TN DAILYPRN PRN PRN Reason: Constipation Bisacodyl (Dulcolax) 10 mg PO DAILYPRN PRN PRN Reason: Constipation Calcium Carbonate (Tums) 1,000 mg PO Q4H PRN PRN Reason: Heartburn or Indigestion Last Admin: 05/23/18 17:54 Dose: 1,000 mg Clopidogrel Bisulfate (Plavix) 75 mg PO DAILY [facility] Last Admin: 05/24/18 08:29 Dose: 75 mg Enoxaparin Sodium (Lovenox) 40 mg SC 0900 [facility] Last Admin: 05/24/18 08:29 Dose: 40 mg Famotidine (Pepcid) 20 mg PO BID [facility] Last Admin: 05/24/18 08:29 Dose: 20 mg Guaifenesin/Dextromethorphan (Robitussin Dm) 15 ml PO Q4H PRN PRN Reason: Cough Hydralazine HCl (Apresoline) 10 mg SLOW IVP Q4H PRN PRN Reason: SBP Greater Than 180 Labetalol HCl (Normodyne) 20 mg SLOW IVP Q1H PRN PRN Reason: SBP Greater Than 180 Loperamide HCl (Imodium) 2 mg PO PRN PRN PRN Reason: Diarrhea/Loose Stools Ondansetron HCl (Zofran Odt) 4 mg PO Q6H PRN PRN Reason: Nausea/Vomiting Ondansetron HCl (Zofran) 4 mg IVP Q6H PRN PRN Reason: Nausea/Vomiting Senna/Docusate Sodium (Senokot S) 2 tab PO BID PRN PRN Reason: Constipation Sodium Chloride (Flush - Normal Saline) 10 ml IVF PRN PRN PRN Reason: Saline Flush Last Admin: 05/23/18 21:03 Dose: 10 ml Zolpidem Tartrate (Ambien) 5 mg PO HSPRN PRN PRN Reason: Insomnia
[2018-05-24] MEDS ORDERED: Ketorolac Tromethamine 15 MG/ML VIAL IVP PRN (11:37)
[2018-05-24] MEDS ORDERED: Ketorolac Tromethamine 30 MG/ML VIAL IM PRN (11:44)
--- NOTE | 2018-05-24 16:37 | PRG ---
DATE OF SERVICE: 05/24/2018 SUBJECTIVE: This is Neurology followup for CVA. The patient complains of left-sided headache. His nurse states that the patient has received [place], which does not seem to help his headache. The patient also is noted to have significant difficulty with his speech, has trouble thinking of the words that he wants to say, and sometimes has trouble comprehending commands. OBJECTIVE: VITAL SIGNS: Blood pressure 133/93, O2 saturation is 99%. Temperature 98.3, pulse 63 regular, respiratory rate 16. He is awake and alert, oriented x3. Cranial nerves 2 through 12 are normal. Motor 5/5 strength in the arms and legs. Gait is normal. DTRs are 2+. Sensation is normal. His main deficit is his speech. He has difficulty repeating no ifs, ands, or buts about it. He also has word-finding problems and difficulty comprehending commands. Test results showed that he had an MRI of the brain on 05/23/2018, which showed infarction in the left middle cerebral artery area. CTA of the [place] showed evolutionary changes compatible with a left MCA distribution infarction. The left internal carotid artery showed a possible area of calcified plaque and possible ulcer. No significant stenosis was seen. LABORATORY DATA: White count of 7, hemoglobin 14.3, hematocrit 43.8, platelets 188,000. Syphilis IgG/IgM was nonreactive. Tox screen in the urine showed methamphetamines and cocaine. Chemistry showed a creatinine of 1.35, sodium 140, CO2 is 24, BUN is 21, triglycerides 68, and cholesterol 181. MEDICATIONS: Medications show that he is getting [place]. He is on Norvasc, one aspirin a day, Lipitor, Plavix, and Pepcid. IMPRESSION: Status post left middle cerebral artery territory infarction, this may be due to hypertension. Consider possibility of the role played by methamphetamines and/or cocaine, which can cause vasospasm, can lead to stroke. Consider possibility of ulcerated plaque in the left internal carotid. He is aphasic. Main problem is repetition, but he does have some problems also with expression and comprehension. PLAN: We will try to give him a trial of Toradol to see if that will help his headaches some. Note that, a Vascular consult is pending for the carotid and also recommend speech therapy. The patient advised to not use drugs. Job ID: [id number]
--- NOTE | 2018-05-24 17:00 | CON ---
DATE OF CONSULTATION: 05/24/2018 CHIEF COMPLAINT: Confusion and difficulty speaking. HISTORY OF PRESENT ILLNESS: The patient is a 57-year-old black man with no known past medical history, who was brought to the emergency room by his family because of the difficulty speaking and apparent confusion. The patient did not seemed recognize certain objects and some family members and had a lot of difficulty in picking out the right word to say when he tried to speak. He denied any extremity weakness or paresthesias, but does complain of a severe left frontal headache. MEDICATIONS: The patient takes no medications on a regular basis. ALLERGIES: HE IS NOT AWARE OF ANY DRUG ALLERGIES. SOCIAL HISTORY: He admits to drinking 5 beers a day and smoking a quarter to a half a pack of cigarettes a day. The patient denies illicit drug use, but had a urine tox screen positive for methamphetamine and cocaine metabolites. FAMILY HISTORY: The patient is not aware of any family history of coronary artery disease or stroke. REVIEW OF SYSTEMS: Negative for any antecedent type symptoms. PHYSICAL EXAMINATION: GENERAL: The patient is a relatively young appearing black man. HEENT: He has extremely poor dentition. NECK: He has no JVD. No carotid bruits. CHEST: Clear to auscultation. HEART: He has regular rate and rhythm. NEUROLOGIC: He is able to move all extremities normally, although he had some difficulty in complying with my testing on cranial nerves. Cranial nerves 2 through 12 appear to be intact. He did have problems articulating his speech. At times, he would seem to have considerable difficulty in picking his words and other times, he was able to speak without any difficulty at all. The words themselves were pronounced well fluent. There were times; however, that he seemed to have difficulty understanding simple words or questions or statements that I was making it. LABORATORY DATA: Laboratory exam showed white count of 7, hemoglobin 14.3, hematocrit 43.8, and platelets 188,000. Electrolytes were normal. Initial BUN and creatinine were 16 and 1.51 on the evening of the 3rd and followup yesterday morning were 21 and 1.35 respectively. Glucose was 139 initially and followup was 97. LFTs were normal. Albumin was 4.4 and calcium was 10.1. Toxicology screen on urine showed methamphetamines and cocaine metabolites. His MRI showed findings consistent with an acute stroke in the left temporal lobe at the level of the sylvian fissure and this was mirrored on the noncontrasted films on the CT scan. CTA of the carotids showed 2 very small extraluminal areas of calcification within the wall of the left carotid bulb, but essentially pristine cervical carotids otherwise. He has a bovine arch. Echocardiography showed no obvious evidence of septal defects or intracardiac thrombus or mass. LVEF was around 55% with a normal-size left atrium and a structurally normal aortic valve. IMPRESSION AND RECOMMENDATIONS: Acute left hemispheric stroke without any evidence of cervical carotid disease to explain it. Given his stroke, one could probably justify enrolling him in annual screening of his carotids, even though he has no evidence of carotid disease at this point, but certainly I would not recommend any further workup or invasive management of his cervical carotids at this time. Job ID: [id number]
[2018-05-24] MEDS: Atorvastatin Calcium 40 MG TAB PO SCH (20:09)
[2018-05-25] MEDS: Aspirin 325 MG TAB PO SCH (09:14)
[2018-05-25] MEDS: Enoxaparin Sodium 40 MG/0.4 ML SYRINGE SC SCH (09:14)
[2018-05-25] MEDS: Acetaminophen 325 MG TAB PO PRN (09:14)
[2018-05-25] MEDS: Famotidine 20 MG TAB PO SCH ×2 (09:14→20:33)
[2018-05-25] MEDS: Clopidogrel Bisulfate 75 MG TAB PO SCH (09:14)
[2018-05-25] MEDS: Amlodipine 5 MG TAB PO SCH (09:14)
--- NOTE | 2018-05-25 10:16 | CT ---
CT BRAIN WITHOUT CONTRAST: Date: 05/25/18 HISTORY: Acute CVA. COMPARISON: CT brain dated 05/22/18. FINDINGS: Continued evolutionary changes of the left sylvian fissure MCA territory infarction. No acute hemorrh age. Some mild focal edema. There is also some involvement of the inferior left temporal lobe, which is more confluent on today's examination than the prior examinations. No midline shift or mass effect. Paranasal sinuses and mastoids are clear. IMPRESSION: Continued evolutionary changes left MCA territory infarction with involvement of the inferior left te mporal lobe, more appreciated on today's exam than prior examinations. POS: JAMES
--- NOTE | 2018-05-25 11:00 | PDOC.PN ---
- Subjective Encounter Start Date: 05/25/18 Encounter Start Time: 07:30 Patient seen and examined. No new complaints. No overnight events headache is improving - Objective Resuscitation Status - Order Detail: 05/22/18 21:18 Resuscitation Status Routine Resuscitation Status: FULL: Full Resuscitation MAR Reviewed: Yes Vital Signs & Weight: Vital Signs (12 hours) Temp Pulse Resp BP Pulse Ox 05/25/18 09:14 70 05/25/18 07:15 97.5 F L 70 16 109/72 99 05/25/18 03:37 98.5 F 74 16 115/70 98 05/25/18 00:00 98.3 F 66 16 127/71 99 Weight Admit Weight 177 lb Weight 180 lb 8 oz I&O: 05/24/18 05/25/18 05/26/18 06:59 06:59 06:59 Intake Total 2691 Balance 2691 Result Diagrams: 05/23/18 05:47 05/23/18 05:47 Radiology Reviewed by me: Yes (CT brain reviewed) EKG Reviewed by me: Yes (nsr) Phys Exam - Physical Examination Constitutional: NAD HEENT: PERRLA, moist MMs, sclera anicteric Neck: no JVD, supple Respiratory: no wheezing, no rales, no rhonchi Cardiovascular: RRR, no significant murmur, no rub Gastrointestinal: soft, non-tender, no distention, positive bowel sounds Musculoskeletal: no edema, pulses present Neurological: non-focal, normal sensation Lymphatic: no nodes Psychiatric: normal affect, A&O x 3 Skin: no rash, normal turgor Dx/Plan (1) Arterial ischemic stroke, MCA (middle cerebral artery), left, acute Code(s): I63.512 - CEREB INFRC D/T UNSP OCCLS OR STENOS OF LEFT MID CEREB ART Status: Acute (2) CAD (coronary artery disease) Code(s): I25.10 - ATHSCL HEART DISEASE OF [place] CORONARY ARTERY W/O ANG PCTRS Status: Chronic (3) CKD (chronic kidney disease), stage III Code(s): N18.3 - CHRONIC KIDNEY DISEASE, STAGE 3 (MODERATE) Status: Chronic (4) Carotid atherosclerosis Code(s): I65.29 - OCCLUSION AND STENOSIS OF UNSPECIFIED CAROTID ARTERY Status : Chronic Qualifiers: Laterality: left Qualified Code(s): I65.22 - Occlusion and stenosis of left carotid artery (5) Dyslipidemia Code(s): E78.5 - HYPERLIPIDEMIA, UNSPECIFIED Status: Chronic (6) Hypertension Code(s): I10 - ESSENTIAL (PRIMARY) HYPERTENSION Status: Chronic (7) Polysubstance abuse Code(s): F19.10 - OTHER PSYCHOACTIVE SUBSTANCE ABUSE, UNCOMPLICATED Status: Chronic - Plan cont current plan of care * repeat CT brain is showing evolving cva * medication reviewed as below * symptomatic treatment. Review of Systems - Review of Systems ENT: negative: Ear Pain, Ear Discharge, Nose Pain, Nose Discharge, Nose Congestion, Mouth Pain, Mouth Swelling, Throat Pain, Throat Swelling, Other Respiratory: negative: Cough, Dry, Shortness of Breath, Hemoptysis, SOB with Excertion, Pleuritic Pain, Sputum, Wheezing Cardiovascular: negative: chest pain, palpitations, orthopnea, paroxysmal nocturnal dyspnea, edema, light headedness, other Gastrointestinal: negative: Nausea, Vomiting, Abdominal Pain, Diarrhea, Constipation, Melena, Hematochezia, Other Genitourinary: negative: Dysuria, Frequency, Incontinence, Hematuria, Retention , Other Musculoskeletal: negative: Neck Pain, Shoulder Pain, Arm Pain, Back Pain, Hand Pain, Leg Pain, Foot Pain, Other Skin: negative: Rash, Lesions, Minh, Bruising, Other - Medications/Allergies Allergies/Adverse Reactions: Allergies Allergy/AdvReac Type Severity Reaction Status Date / Time No Known Drug Allergies Allergy Verified 06/12/17 06:02 Medications: Current Medications Acetaminophen (Tylenol) 650 mg PO Q4H PRN PRN Reason: Headache/Fever/Mild Pain (1-3) Last Admin: 05/25/18 09:14 Dose: 650 mg Hydrocodone Bitart/Acetaminophen ([place] 5/325) 1 tab PO Q4H PRN PRN Reason: Moderate Pain (4-6) Last Admin: 05/24/18 08:28 Dose: 1 tab Amlodipine Besylate (Norvasc) 2.5 mg PO DAILY [facility] Last Admin: 05/25/18 09:14 Dose: 2.5 mg Aspirin (Aspirin) 325 mg PO DAILY [facility] Last Admin: 05/25/18 09:14 Dose: 325 mg Atorvastatin Calcium (Lipitor) 80 mg PO HS [facility] Last Admin: 05/24/18 20:09 Dose: 80 mg Bisacodyl (Dulcolax) 10 mg [place] DAILYPRN PRN PRN Reason: Constipation Bisacodyl (Dulcolax) 10 mg PO DAILYPRN PRN PRN Reason: Constipation Calcium Carbonate (Tums) 1,000 mg PO Q4H PRN PRN Reason: Heartburn or Indigestion Last Admin: 05/23/18 17:54 Dose: 1,000 mg Clopidogrel Bisulfate (Plavix) 75 mg PO DAILY [facility] Last Admin: 05/25/18 09:14 Dose: 75 mg Enoxaparin Sodium (Lovenox) 40 mg SC 0900 [facility] Last Admin: 05/25/18 09:14 Dose: 40 mg Famotidine (Pepcid) 20 mg PO BID [facility] Last Admin: 05/25/18 09:14 Dose: 20 mg Guaifenesin/Dextromethorphan (Robitussin Dm) 15 ml PO Q4H PRN PRN Reason: Cough Hydralazine HCl (Apresoline) 10 mg SLOW IVP Q4H PRN PRN Reason: SBP Greater Than 180 Ketorolac Tromethamine (Toradol) 15 mg IM Q6HR PRN PRN Reason: Headache Stop: 05/29/18 11:45 Labetalol HCl (Normodyne) 20 mg SLOW IVP Q1H PRN PRN Reason: SBP Greater Than 180 Loperamide HCl (Imodium) 2 mg PO PRN PRN PRN Reason: Diarrhea/Loose Stools Ondansetron HCl (Zofran Odt) 4 mg PO Q6H PRN PRN Reason: Nausea/Vomiting Ondansetron HCl (Zofran) 4 mg IVP Q6H PRN PRN Reason: Nausea/Vomiting Senna/Docusate Sodium (Senokot S) 2 tab PO BID PRN PRN Reason: Constipation Sodium Chloride (Flush - Normal Saline) 10 ml IVF PRN PRN PRN Reason: Saline Flush Last Admin: 05/23/18 21:03 Dose: 10 ml Zolpidem Tartrate (Ambien) 5 mg PO HSPRN PRN PRN Reason: Insomnia
[2018-05-25] MEDS: HYDROcodone/Acetaminophen 5/325 mg Tablet PO PRN (18:03)
--- NOTE | 2018-05-25 18:12 | PRG ---
DATE OF SERVICE: 05/25/2018 FOLLOWUP NEUROLOGY NOTE. PRESENT ILLNESS: The patient still complains of speech problems and left-sided headache. He states however that the speech has improved, he still has difficulty thinking of the word he wants to say and he states that the headaches on the left side have improved and they are better than yesterday. His sister is present at this time and he recognizes her. He is awake and alert. PHYSICAL EXAMINATION: VITAL SIGNS: Blood pressure 124/68, temperature 98.4, pulse 74 and regular, and respiratory rate 16. HEENT: Normal. LUNGS: Clear. HEART: Regular. EXTREMITIES: No clubbing, cyanosis, or edema. NEUROLOGIC: Cranial nerves 2 through 12 are normal. Motor, 5/5 strength in the arms and legs. Gait is normal. His speech shows that he has global aphasia, however, it is better than yesterday. He still cannot repeat no ifs, ands, or buts about it, but he gets a couple of the words correct today, which is better than yesterday. He still has some word-finding problems in naming objects and difficulty with comprehension and following commands. LABORATORY DATA: Test results showed that there was a CT of the head done today as followup, which showed the continued expected evolutionary changes of the left middle cerebral artery territory infarction with mostly involvement of the inferior temporal lobe and left sylvian fissure areas. There is some mild focal edema, but no shift or real mass effect. IMPRESSION: Status post cerebrovascular accident. This could be on the basis of vasospasm due to the drugs that were found on his urine drug screen, methamphetamine and cocaine. Cannot really rule out cardiac arrhythmia to cause this, but no cardiac arrhythmia has been seen during his hospitalization. PLAN: Continue with one aspirin a day for stroke prophylaxis. He should not abuse drugs. Also speech therapy is recommended to help him get his speech back for his aphasia. Discussed with the patient. No further neurological recommendations at this time. Please recall Neurology if needed. Job ID: [id number]
[2018-05-25] MEDS: Atorvastatin Calcium 40 MG TAB PO SCH (20:33)
[2018-05-26 07:59] VITALS: BP 151/80; TEMP 97.7
[2018-05-26] MEDS: Enoxaparin Sodium 40 MG/0.4 ML SYRINGE SC SCH (08:42)
[2018-05-26] MEDS: Amlodipine 5 MG TAB PO SCH (08:42)
[2018-05-26] MEDS: Aspirin 325 MG TAB PO SCH (08:42)
[2018-05-26] MEDS: Famotidine 20 MG TAB PO SCH (08:42)
[2018-05-26] MEDS: Clopidogrel Bisulfate 75 MG TAB PO SCH (08:42)
--- NOTE | 2018-05-26 11:50 | DIS ---
DATE OF ADMISSION: 05/22/2018 DATE OF DISCHARGE: 05/26/2018 PRIMARY CARE PHYSICIAN: Xavier Moore. DISCHARGE DISPOSITION: Home. PRIMARY DISCHARGE DIAGNOSIS: Left middle cerebral artery territory infarction. SECONDARY DISCHARGE DIAGNOSES: 1. Polysubstance abuse. 2. Hypertension. 3. Dyslipidemia. 4. Medication noncompliance. 5. Chronic kidney disease, stage 3. 6. Coronary artery disease. 7. Carotid atherosclerosis. PRIMARY PROCEDURE/OPERATION: None. RADIOLOGICAL INVESTIGATION: Initial CT brain was negative. MRI brain showed left MCA territory CVA. CT angiography negative for any stenosis, but it did show left-sided carotid atherosclerosis. Echocardiography that showed normal finding. A CT brain negative for any acute intracranial process. SIGNIFICANT LABORATORY DATA: WBC 7.0, hemoglobin 14.3, and platelets 188. Sodium 140, potassium 4.0, BUN 21, creatinine 1.35, LDL 87, homocystine 10.65, and TSH 2.69. Electrolytes normal. Urinalysis unremarkable. Urine drug screen, positive for methamphetamine and cocaine. Syphilis negative. DISCHARGE MEDICATIONS: 1. Amlodipine 2.5 mg p.o. daily. 2. Aspirin 325 mg p.o. daily. 3. Plavix 75 mg daily. 4. Lipitor 80 mg p.o. at bedtime. CONTRAINDICATION: None. CODE STATUS: Full code. INPATIENT CAMP NURSE: Neurology, Dr. Caren Sanchez and Dr. Poppy Hunter, was following while in the hospital. Dr. Rosario was consulted for carotid atherosclerosis. TEST RESULTS PENDING ON DISCHARGE: None. ALLERGIES: NO KNOWN DRUG ALLERGIES. DISCHARGE PLAN: Posthospital, the patient will follow up with primary care physician. HOSPITAL COURSE: A 57-year-old male who was admitted by me. Please see my HPI for further details. On admission, the patient was having neurologic symptoms with short memory problem as well as aphasia. Initial CT brain in the emergency room was negative, but subsequent MRI did show left MCA territory CVA. His urine drug screen was positive for cocaine and methamphetamine. He was not taking any medication for his blood pressure that contributed to his stroke. During this admission, we did CT angiography which was negative for any stenosis, but it did show atherosclerosis. Dr. Rosario was consulted per Neurology's recommendation. Neurology was following while in the hospital. His echocardiography is unremarkable. His repeat CT brain was done for his persistent headache that was also unremarkable. At this point, the patient was given counseling to avoid any other illicit drug abuse as well as educated about taking medications regularly, and he will follow up with Neurology as an outpatient basis. PHYSICAL EXAMINATION: The patient was seen and examined at bedside today. VITAL SIGNS: Currently temperature 97.7, pulse 65, respiratory rate 14, saturation 100%, blood pressure 151/80, and weight 180 pounds. GENERAL: The patient is currently alert and awake, no obvious acute distress. HEENT: Head; normocephalic, atraumatic. Eyes; pupils round, reactive to light. Extraocular muscle intact. ENT, oropharynx within normal limits. Moist mucous membranes. No oral lesion. No pharyngeal erythema. No exudate. NECK: Supple. No JVD. No thyromegaly. LUNGS: Clear. CARDIAC: S1 and S2 regular. No murmur. ABDOMEN: Soft and benign. NEUROLOGIC: Nonfocal examination. He is moving all 4 limbs, and he is ambulatory. Job ID: [id number]
[2018-05-26 12:37] VITALS: BMI 26.6
== END 2018-05-26 16:48 | disposition home or self-care (01) | DRG 64 ==
LOC: ERS 19:34 → 2SE 20:35
PROVIDERS: ADMIT Emergency Medicine; ATTEND Emergency Medicine
DX: I63.512 Cerebral infarction due to unspecified occlusion or stenosis of left middle cerebral artery (principal); G92 Toxic encephalopathy; I65.22 Occlusion and stenosis of left carotid artery; R47.01 Aphasia; R29.702 NIHSS score 2; I12.9 Hypertensive chronic kidney disease with stage 1 through stage 4 chronic kidney disease, or unspecified chronic kidney disease; N18.3 Chronic kidney disease, stage 3 (moderate); I25.10 Atherosclerotic heart disease of native coronary artery without angina pectoris; F15.10 Other stimulant abuse, uncomplicated; F14.10 Cocaine abuse, uncomplicated; E78.5 Hyperlipidemia, unspecified; F17.210 Nicotine dependence, cigarettes, uncomplicated; Z91.14 Patient's other noncompliance with medication regimen
CPT/HCPCS: 36415; 70450; 70496; 70498; 70551; 80048; 80053; 80061; 80306; 81003; 81015; 82140; 83090; 83735; 84100; 84443; 84484; 85025; 86780; 90471; 90686; 93005; 93306; 96361; 96374; 96375; G0008; J1650; J2270; J2405

== ENCOUNTER 2018-10-08 12:41 | Observation (INO) | payer SELFPAY ==
[2018-10-08 13:31] LABS: Bilirubin Negative (Negative); Blood, Urine Negative (Negative); Clarity CLEAR (Clear); Glucose, Urine (Dipstick) Negative (Negative); Leukocyte Negative (Negative); Nitrite Negative (Negative); Protein, Urine (Dipstick) Negative (Neg-Trace); Urobilinogen 0.2 mg/dL (0.2-1.0); pH, Urine 5.5 (5.0-9.0)
[2018-10-08 13:41] LABS: #Basophils 0.1 thou/uL (0.0-0.2); #Eosinphils 0.1 thou/uL (0.0-0.7); #Lymphocytes 1.5 thou/uL (1.20-3.40); #Monocytes 0.8 thou/uL (0.11-0.59); #Neutrophils 4.6 thou/uL (1.40-6.50); %Basophils 1.2 % (0.0-1.0); %Eosinophils 1.3 % (0.0-10.0); %Monocytes 10.9 % (0.0-10.0); %Neutrophils 65.5 % (42.0-75.0); Hemoglobin 14.4 g/dL (14.0-18.0); Mean Corpuscular HGB CONC 32.7 g/dL (32.0-36.0); Mean Corpuscular Hemoglobin 30.4 pg (27.0-31.0); Mean Platelet Volume 8.3 fL (7.4-10.4); Platelet Count 215 thou/uL (130-400); Red Blood Cell (RBC) Count 4.75 mill/uL (4.70-6.10); White Blood Cell (WBC) Count 7.1 thou/uL (4.8-10.8)
--- NOTE | 2018-10-08 13:51 | RAD ---
CHEST 1 VIEW: HISTORY: Left-sided chest pain. COMPARISON: 06/12/2017. FINDINGS: Heart size is normal. The lungs are clear. No confluent pneumonia, overt edema, pleural effusion, o r other acute process. Stable from prior study. POS: OFF
[2018-10-08 14:06] LABS: ALT (SGPT) 31 U/L (8-55); AST (SGOT) 30 U/L (5-34); Albumin 4.3 g/dL (3.5-5.0); Alkaline Phosphatase 89 U/L (40-150); Anion Gap 14 mmol/L (10-20); BUN (Urea Nitrogen) 23 mg/dL (8.4-25.7); Bilirubin, Total 1.2 mg/dL (0.2-1.2); Calc. Creatinine Clearance 0 mL/min (70-130); Calcium 9.6 mg/dL (7.8-10.44); Carbon Dioxide 22 mmol/L (22-29); Chloride 107 mmol/L (98-107); Estimated GFR-MDRD 69; Globulin 3.2 g/dL (2.4-3.5); Glucose 89 mg/dL (70-105); Protein, Total 7.5 g/dL (6.0-8.3); Sodium 138 mmol/L (136-145)
[2018-10-08] MEDS ORDERED: Aspirin Chewable 81 MG TAB ONE (14:43)
[2018-10-08 16:37] VITALS: BMI 23.6
[2018-10-08 16:37] LABS: Cocaine Metabolite Screen Detected (NotDetected); Medtox Reader # READER 1; Opiate Screen Detected (NotDetected)
[2018-10-08 16:38] LABS: Troponin I Less than 0.010 ng/mL (< 0.028)
[2018-10-08 16:38] LABS: Amphetamine Not Detected (NotDetected); Barbiturates Screen Not Detected (NotDetected); Benzodiazepine Screen Not Detected (NotDetected); Medtox Control Line Valid? VALID (VALID); Methadone Not Detected (NotDetected); Methamphetamine Not Detected (NotDetected); Oxycodone Screen Not Detected (NotDetected); Phencyclidine (PCP) Not Detected (NotDetected); THC/Cannabinoid Screen Not Detected (NotDetected); Tricyclic Screen Not Detected (NotDetected)
[2018-10-08 16:46] LABS: Acetaminophen Less than 6.0 mcg/mL (10.0-30.0); Alcohol Less than 10 mg/dL (Less than 10); Salicylate Less than 8.0 mg/dL (15.0-30.0)
[2018-10-08] MEDS ORDERED: Acetaminophen 325 MG TAB PO PRN (19:47)
[2018-10-08] MEDS ORDERED: Nitroglycerin 0.4 MG TAB 1 EACH SL PRN (19:47)
[2018-10-08] MEDS ORDERED: Ondansetron PF 4 MG/2 ML Vial IVP PRN (19:48)
[2018-10-08] MEDS ORDERED: Melatonin 3 MG TAB PO PRN (19:48)
[2018-10-08] MEDS ORDERED: Calcium Carbonate 500 MG ChewTAB PO PRN (19:48)
[2018-10-08 20:01] LABS: Troponin I Less than 0.010 ng/mL (< 0.028)
[2018-10-08] MEDS ORDERED: Atorvastatin Calcium 20 MG TAB PO SCH (21:00)
--- NOTE | 2018-10-09 01:29 | HP ---
CHIEF COMPLAINT: Chest pain. HISTORY OF PRESENT ILLNESS: Mr. Robson Cosme is a 58-year-old male with past medical history of coronary artery disease, hypertension, polysubstance abuse, came because of chest pain which is sharp in nature, not associated with any diaphoresis, no shortness of breath. He says the pain is intermittent, comes and goes, worst at night. He does have some palpitations in the night. The patient still smokes, uses cocaine. The patient was seen in the ER and found to have abnormal EKG. In view of his risk factor, he is being admitted to rule out myocardial infarction. PAST MEDICAL HISTORY: 1. Coronary artery disease, status post stent. 2. Hypertension. 3. Hyperlipidemia. 4. Polysubstance abuse. PAST SURGICAL HISTORY: Nothing contributory. CURRENT MEDICATIONS: The patient is on: 1. Amlodipine 2.5 mg daily. 2. Aspirin 325 mg daily. 3. Lipitor 20 mg daily. 4. Plavix 75 mg daily. ALLERGIES: NKDA. FAMILY HISTORY: Nothing contributory. SOCIAL HISTORY: Lives with his family. Smokes about 5-10 cigarettes daily. Drinks alcohol daily. Uses cocaine. REVIEW OF SYSTEMS: Unremarkable except for chest pain. PHYSICAL EXAMINATION: GENERAL: The patient is alert, awake, oriented x3. VITAL SIGNS: Temperature 98, pulse 80, respirations 20, blood pressure 140/80. HEENT: Head is normocephalic and atraumatic. Pupils are equal and reactive to light. Nasopharynx is pale and dry. Hard and soft palate, no lesions. SKIN: Turgor decreased. NECK: Supple. No JVD. LUNGS: Bilateral air entry. No rales, no rhonchi. HEART: S1 and S2, regular. ABDOMEN: Soft. No tenderness. Bowel sounds present. LABORATORY DATA: CBC shows WBC 7, hemoglobin 14, hematocrit 43, platelets 250. Metabolic panel; sodium 138, potassium 5, chloride 107, CO2 28, BUN 20, creatinine 1, glucose 89. Troponin less than 0.010. Urine drug screen positive for cocaine and opiates. IMAGING STUDIES: Chest x-ray negative. EKG shows sinus bradycardia with heart rate of 59 with mild T-wave inversion in V1 to V6. ASSESSMENT: 1. Chest pain, rule out myocardial infarction. 2. Coronary artery disease, status post stent. 3. Cocaine abuse. 4. Acute coronary syndrome. 5. Hypertension. PLAN: 1. Vital signs q.4 hours. 2. Activity as tolerated. 3. Allergies, NKDA. 4. Hep-Lock. 5. Continue home medications. 6. Diet, cardiac. 7. Troponin I q.6 hours x2. 8. We will obtain stress test. 9. Aspirin daily. 10. Cardiology consult. 11. He will be discharged home soon. Job ID: [id number] MTDD
[2018-10-09] MEDS ORDERED: Aspirin 325 MG TAB PO SCH (09:00)
[2018-10-09] MEDS ORDERED: Clopidogrel Bisulfate 75 MG TAB PO SCH (09:00)
[2018-10-09] MEDS ORDERED: Amlodipine 5 MG TAB PO SCH (09:00)
--- NOTE | 2018-10-09 11:02 | NM ---
EXAM: CARDIAC SPECT HISTORY: Chest pain, coronary disease, myocardial infarction, hypertension, dyslipidemia and smoker TECHNIQUE: A myocardial perfusion scan was performed using the single isotope 1 day protocol with julius hnetium 99m sestamibi. [10 mCi] was injected intravenously for the rest exam followed by 30 mCi for the stress study. Pharmacologic stress with adenosine was monitored and interpreted by Dr. Castillo. FINDINGS: A fixed defect is seen in the apex. No reversible defects are identified. The left ventricu lar cavity is dilated. Gated SPECT LVEF: 36% Wall motion exam: Global hypokinesis IMPRESSION: No evidence of reversible ischemia.
[2018-10-09] MEDS ORDERED: ADENOSINE 60 MG/20 ML VIAL ONE (11:54)
[2018-10-09 16:03] VITALS: BP 123/98; TEMP 98.1
--- NOTE | 2018-10-10 11:13 | DIS ---
DATE OF ADMISSION: 10/08/2018 DATE OF DISCHARGE: 10/09/2018 ADMITTING DIAGNOSES: 1. Chest pain, rule out myocardial infarction. 2. Coronary artery disease, status post stent. 3. Cocaine abuse. 4. Acute coronary syndrome. 5. Hypertension. FINAL DIAGNOSES: 1. Chest pain. No evidence of acute myocardial infarction. Negative Cardiolite stress test. 2. Coronary artery disease, status post stent. 3. Cocaine abuse. 4. Hypertension. BRIEF SUMMARY OF HOSPITAL COURSE: Mr. Cosme is a 58-year-old male admitted because of chest pressure. In view of his risk factor, the patient admitted to rule out myocardial infarction. Serial cardiac enzymes were done. The second troponin was less than 0.010 and third one was also less than 0.010. Cardiology consult was done. The patient was seen by Dr. Castillo. He felt the patient has atypical chest pain and has a stress test. The patient underwent stress test, which showed only a fixed defect, no reversible ischemia. The patient's chest pain also resolved. He was positive for cocaine. He is being discharged home. At the time of discharge, he was stable. Vital signs are stable. Lungs are clear. Heart sounds are regular. Abdomen is soft and nontender. Bowel sounds are heard. DISCHARGE MEDICATIONS: 1. Amlodipine 2.5 mg daily. 2. Aspirin 325 mg daily. 3. Lipitor 20 mg daily. 4. Plavix 75 mg daily. DISCHARGE INSTRUCTIONS AND FOLLOWUP: The patient is strongly advised to not use cocaine and we advised to follow with Dr. Simental, the internet security specialist in 2 weeks. Job ID: [id number]
--- NOTE | 2018-10-13 09:29 | CON ---
DATE OF CONSULTATION: 10/09/2018 REASON FOR CONSULTATION: Chest pain and abnormal stress test. HISTORY OF PRESENT ILLNESS: Mr. Cosme is a 58-year-old gentleman, who is a patient Dr. Jj Simental. He recently presented mainly with shortness of breath. Mild chest pain is noted. Mr. Cosme underwent urgent coronary angiography on 06/12/[address] Simental and was found to have a thrombus present at the apex. Thrombectomy was performed successfully. No stent or PTCA was performed. PAST MEDICAL HISTORY: CAD, hypertension, hyperlipidemia, and polysubstance abuse. MEDICATIONS: Include; 1. Amlodipine. 2. Aspirin. 3. Lipitor. 4. Plavix. ALLERGIES: NONE. SOCIAL HISTORY: Positive tobacco use. REVIEW OF SYSTEMS: A 10-point review of systems is reviewed as above, otherwise negative. PHYSICAL EXAMINATION: GENERAL: Patient is a pleasant male, who is in no acute distress. The patient appears their stated age. VITAL SIGNS: Blood pressure 120/74, respirations 23. NEUROLOGIC: The patient is alert and oriented x3 with no focal neurologic deficits. HEENT: Sclerae without icterus. Mouth has moist mucous membranes with normal pallor. NECK: No JVD. Carotid upstroke brisk. No bruits bilaterally. LUNGS: Clear to auscultation with unlabored respirations. BACK: No scoliosis or kyphosis. CARDIAC: Regular rate and rhythm with normal S1 and S2. No S3 or S4 noted. No significant rubs, murmurs, thrills, or gallops noted throughout the precordium. PMI is not displaced. There is no parasternal heave. ABDOMEN: Soft, nontender, nondistended. No peritoneal signs present. No hepatosplenomegaly. No abnormal striae. EXTREMITIES: 2+ femoral and 2+ dorsalis pedis pulses. No cyanosis, clubbing, or edema. SKIN: No gross abnormalities. PERTINENT LABORATORY DATA: CK troponin negative. Stress and rest myocardial perfusion study. LVEF 36% with a fixed defect noted at the apex. No reversibility present. IMPRESSION: 1. Shortness of breath. 2. Atypical chest pain. 3. Previous myocardial infarction. 4. Tobacco abuse. RECOMMENDATIONS: Mr. Cosme's recent stress study was not suggestive of ischemia. He had a fixed defect likely from his previous [place] in 2018. At this point, I recommend continued medical therapy. I would recommend statin therapy, aspirin in addition to beta lamar therapy. His LVEF of 36%. We will also recommend low-dose VALE inhibitor therapy. Plan is to follow up with Dr. Simental in the next 2 to 3 weeks. Job ID: [id number]
== END 2018-10-09 17:10 | disposition home or self-care (01) ==
LOC: ERS 12:41 → 2SW 16:25
PROVIDERS: ADMIT Internal Medicine; ATTEND Internal Medicine
DX: R07.89 Other chest pain (principal); I25.10 Atherosclerotic heart disease of native coronary artery without angina pectoris; I10 Essential (primary) hypertension; E78.5 Hyperlipidemia, unspecified; F17.210 Nicotine dependence, cigarettes, uncomplicated; F14.10 Cocaine abuse, uncomplicated; I24.9 Acute ischemic heart disease, unspecified; I25.2 Old myocardial infarction; R06.02 Shortness of breath; Z79.02 Long term (current) use of antithrombotics/antiplatelets; Z79.82 Long term (current) use of aspirin; Z79.899 Other long term (current) drug therapy; Z95.5 Presence of coronary angioplasty implant and graft
CPT/HCPCS: 36415; 71045; 78452; 80053; 80306; 80307; 81003; 84484; 85025; 93005; 93017; A9500; G0378; J0153

== ENCOUNTER 2018-12-26 13:20 | Emergency (ER) | payer SELFPAY ==
[2018-12-26 15:03] LABS: Bacteria/HPF None Seen HPF (None Seen); Bilirubin Negative (Negative); Blood, Urine 3+ (Negative); Clarity Clear (Clear); Glucose, Urine (Dipstick) Normal (Negative); Leukocyte Negative Leu/uL (Negative); Nitrite Negative (Negative); Protein, Urine (Dipstick) 70 mg/dL (Neg-Trace); RBC/HPF 0-3 HPF (0-3); Squamous Epithelial None Seen HPF (0-3); Urobilinogen Normal mg/dL (Less than 2); WBC/HPF 0-3 HPF (0-3)
[2018-12-26 15:14] LABS: Amphetamine Not Detected (NotDetected); Barbiturates Screen Not Detected (NotDetected); Benzodiazepine Screen Not Detected (NotDetected); Cocaine Metabolite Screen Detected (NotDetected); Medtox Control Line Valid? VALID (VALID); Medtox Reader # READER 4; Methadone Not Detected (NotDetected); Methamphetamine Not Detected (NotDetected); Opiate Screen Not Detected (NotDetected); Oxycodone Screen Not Detected (NotDetected); Phencyclidine (PCP) Not Detected (NotDetected); THC/Cannabinoid Screen Not Detected (NotDetected); Tricyclic Screen Not Detected (NotDetected)
== END 2018-12-26 15:45 | disposition home or self-care (01) ==
LOC: ERS 13:20
DX: L02.31 Cutaneous abscess of buttock (principal); I10 Essential (primary) hypertension; F17.210 Nicotine dependence, cigarettes, uncomplicated
CPT/HCPCS: 80306; 81003; 81015; 99283

== ENCOUNTER 2019-08-12 14:13 | Emergency (ER) | payer SELFPAY ==
[2019-08-12 14:32] LABS: #Eosinphils 0.2 thou/uL (0.0-0.7); #Lymphocytes 1.4 thou/uL (1.20-3.40); #Monocytes 0.8 thou/uL (0.11-0.59); #Neutrophils 5.2 thou/uL (1.40-6.50); %Basophils 0.4 % (0.0-1.0); %Eosinophils 2.5 % (0.0-10.0); %Lymphocytes 18.3 % (21.0-51.0); %Monocytes 10.7 % (0.0-10.0); %Neutrophils 68.1 % (42.0-75.0); Hemoglobin 15.6 g/dL (14.0-18.0); Mean Corpuscular HGB CONC 33.6 g/dL (32.0-36.0); Mean Corpuscular Hemoglobin 30.5 pg (27.0-31.0); Mean Corpuscular Volume 90.9 fL (78.0-98.0); Mean Platelet Volume 8.8 fL (7.4-10.4); Platelet Count 192 thou/uL (130-400); RBC Distribution Width 13.8 % (11.5-14.5); Red Blood Cell (RBC) Count 5.13 mill/uL (4.70-6.10); White Blood Cell (WBC) Count 7.6 thou/uL (4.8-10.8)
[2019-08-12 14:49] LABS: ALT (SGPT) 40 U/L (8-55); AST (SGOT) 32 U/L (5-34); Albumin 4.1 g/dL (3.4-4.8); Alkaline Phosphatase 88 U/L (40-110); Anion Gap 13 mmol/L (10-20); BUN (Urea Nitrogen) 13 mg/dL (8.4-25.7); Bilirubin, Total 0.9 mg/dL (0.2-1.2); Calc. Creatinine Clearance 0 mL/min (70-130); Calcium 9.7 mg/dL (7.8-10.44); Carbon Dioxide 27 mmol/L (23-31); Chloride 105 mmol/L (98-107); Estimated GFR-MDRD 54; Globulin 3.6 g/dL (2.4-3.5); Glucose 93 mg/dL (80-115); Potassium 4.7 mmol/L (3.5-5.1); Protein, Total 7.7 g/dL (5.8-8.1); Sodium 140 mmol/L (136-145)
--- NOTE | 2019-08-12 14:50 | CT ---
CT head noncontrast HISTORY: TIA. COMPARISON: 05/25/2018. FINDINGS: There is no evidence of acute intracranial hemorrhage or infarct. Chronic ischemic small ve ssel disease throughout the periventricular white matter of each cerebral hemisphere is similar in appearance to the prior study. Subtle encephalomalacia adjacent to the left sylvian fissure, consiste nt with an old area of infarct, is similar to the previous study. There is no mass effect or shift of midline structures. Lacunar infarcts at the basal ganglia have be come more pronounced. Visualized paranasal sinuses remain well aerated. IMPRESSION : Progression of small vessel disease, with worsening lacunar infarcts at the basal ganglia. No acute intracranial process is demonstrated.
--- NOTE | 2019-08-12 16:03 | RAD ---
Chest one view HISTORY: Altered mental status. Dyspnea. COMPARISON: 10/08/2018. FINDINGS: Cardiac silhouette is magnified by projection. Pulmonary vasculature is unremarkable. Media stinum is midline. Calcified granulomata are consistent with healed granulomatous disease. No lobar consolidation or evidence of pneumothorax. cafeteria monitor leads overlie the chest. IMPRESSION : Chronic-type findings are stable. No active cardiopulmonary abnormalities are demonstrated.
--- NOTE | 2019-08-12 18:53 | MRI ---
MRI BRAIN NONCONTRAST: DATE: 08/12/2019 HISTORY: 59-year-old male with acute stroke symptoms: Right lower extremity numbness and weakness COMPARISON: 05/23/2018 FINDINGS: There is a new finding of T2 hyperintense lesions in the basal ganglia, more specifically in the tamra bus pallidus bilaterally, surrounded by thin rim of T2 hypointensity. There is mild degree of magnetic susceptibility blooming on the gradient echo sequence. On the left this measures 1.2 x 0.8 c m. On the right it is slightly larger. There is no restricted diffusion involving these lesions, or any other lesions. Previously, there was an acute or subacute infarction involving the operculum and posterior insula of the left temporal lobe. This has now evolved into a moderately large region of encephalomalacia and gliosis involving those structures, plus the periventricular white matter around the trigone of t he left lateral ventricle, resulting in a new finding of greater degree of ex vacuo dilation of the trigone. No associated hemosiderin stain. There are a few scattered tiny punctate foci of magnetic susceptibility artifact in bilateral thalami and left periventricular white matter representing remote hemorrhages. There has been interval progression of chronic ischemic white matter changes of the cerebrum, now mod erate. No obstructive hydrocephalus, mass effect, midline shift, or extra-axial fluid collection. Flow voids are grossly maintained in the major arteries of [place]. There is diffuse brain parenchymal volume loss. IMPRESSION: 1) no acute infarction or any other acute findings. 2) lesions in the globus pallidus of the basal ganglia bilaterally, which occurred sometime after the previous MRI of 05/23/2018. Differential diagnosis includes hypoxic ischemic injury, carbon monoxide poisoning, drug abuse, hyperalimentation, hepatic encephalopathy, cyanide poisoning, hemorrhagic [place]u [place] infarctions, and hypothyroidism. 3) diffuse involutional changes and moderate chronic ischemic white matter changes due to small vesse l disease. 4) moderately large old infarction in left middle cerebral artery territory.
--- NOTE | 2019-08-13 11:03 | EKG ---
Test Reason : ER Blood Pressure : / mmHG Vent. Rate : 075 BPM Atrial Rate : 075 BPM P-R Int : 166 ms QRS Dur : 082 ms QT Int : 386 ms P-R-T Axes : 000 -18 261 degrees QTc Int : 431 ms Normal sinus rhythm Inferior infarct , age undetermined Anterior infarct , age undetermined T wave abnormality, consider lateral ischemia Abnormal ECG Confirmed by CAROLINE CHRISTIAN MD ([id number]), order editor JUDE JORDAN ([id number]) on 08/13/2019 11:03:09 AM Referred By: Confirmed By:CAROLINE CHRISTIAN MD
== END 2019-08-12 20:14 | disposition home or self-care (01) ==
LOC: ERS 14:13
DX: R20.2 Paresthesia of skin (principal); I10 Essential (primary) hypertension; Z86.73 Personal history of transient ischemic attack (TIA), and cerebral infarction without residual deficits; F17.210 Nicotine dependence, cigarettes, uncomplicated
CPT/HCPCS: 36416; 70450; 70551; 71045; 80053; 83735; 84443; 85025; 93005; 94760

== ENCOUNTER 2020-04-10 03:58 | Emergency (ER) | payer SELFPAY ==
[2020-04-10] MEDS ORDERED: Metoclopramide HCl 10 MG/2 ML VIAL ONE (04:18)
[2020-04-10] MEDS ORDERED: diphenhydrAMINE 50 MG/ML VIAL ONE (04:18)
[2020-04-10] MEDS ORDERED: Acetaminophen 500 MG TAB ONE (05:39)
[2020-04-10] MEDS ORDERED: Ketorolac Tromethamine 30 MG/ML VIAL ONE (06:18)
--- NOTE | 2020-04-10 07:39 | CT ---
PRELIMINARY REPORT/DIRECT RADIOLOGY/EMERGENCY AFTER HOURS PROCEDURE: Comparison is made with prior CT head dated 08/12/2019. Hyperdensity along the anterior inferior fal x is unchanged in appearance compared to prior, likely representing benign hyperdensity, likely calcification along the falx and not acute hemorrhage. Addendum electronically signed by Nancy Vasquez MD on April 10, 2020 5:33:10 AM [employer] Receipt of this report by the clinical staff was confirmed with Ade Aguilar MD by Ruba Ibrahim on Apr 10, 2020 05:29:00 [employer]. Addendum electronically signed by Winnie Ibrahim on April 10, 2020 5:29:46 AM [employer]ITT[employer]INE [employer] EXAM: CT Head Without Intravenous Contrast. CLINICAL HISTORY: Patient brought to the ER by EMS due to headache. Patient reports that his headache began gradually approximately 36 hours ago. The headache is on the right side of his head behind his eye. He says bright light makes the pain worse. TECHNIQUE: Axial computed tomography images of the head/brain without intravenous contrast. COMPARISON: None provided. FINDINGS: BRAIN: No acute intraparenchymal hemorrhage. No mass lesion. No CT evidence for acute territorial inf arct. No midline shift. Hypodensity of the white matter likely represents chronic microvascular ischemic disease. Chronic bilateral lacunar basal ganglia infarcts. Chronic left temporal lobe infarct. Linear hyperdensity along the anterior inferior falx with minim al extension into the adjacent subarachnoid space of the brain (series 2, image 9) which may represent dural calcifications although a focal subarachnoid/subdural hemorrhage cannot be excluded. VENTRICLES: No hydrocephalus. Volume loss. ORBITS: The globes are intact. SINUSES AND MASTOIDS: The paranasal sinuses and mastoid air cells are clear. SOFT TISSUES: No significant facial or scalp soft tissue swelling evident. No radiopaque foreign body is seen. BONES: No acute skull fracture. IMPRESSION: Chronic parenchymal changes including chronic bilateral basal ganglia infarcts. Linear hyperdensity along the anterior inferior falx with minimal extension into the adjacent subarac hnoid space of the brain which may represent dural calcifications although a focal subarachnoid/subdural hemorrhage cannot be excluded. 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 DATE: 04/10/2020. COMPARISON: 08/12/2019. Atrophy and chronic white matter ischemic changes. The linear area of increased density of concern on the preliminary report is stable in appearance when compared to the prior exam. No mass or bleed. This report is in agreement with the preliminary report. Transcribed Date/Time: 04/10/2020 7:53 AM
== END 2020-04-10 07:09 | disposition home or self-care (01) ==
LOC: ERS 03:58
DX: R51.9 Headache, unspecified (principal); I10 Essential (primary) hypertension; Z86.73 Personal history of transient ischemic attack (TIA), and cerebral infarction without residual deficits
CPT/HCPCS: 70450; 96374; 96375; J1200; J1885; J2765

== ENCOUNTER 2020-06-05 07:02 | Emergency (ER) | payer SELFPAY ==
[2020-06-05] MEDS ORDERED: Ondansetron PF 4 MG/2 ML Vial ONE (07:16)
[2020-06-05 07:35] LABS: #Basophils 0.1 thou/uL (0.0-0.2); #Eosinphils 0.1 thou/uL (0.0-0.7); #Lymphocytes 1.9 thou/uL (1.20-3.40); #Monocytes 1.4 thou/uL (0.11-0.59); #Neutrophils 9.1 thou/uL (1.40-6.50); %Basophils 0.4 % (0.0-1.0); %Eosinophils 0.6 % (0.0-10.0); %Lymphocytes 15.4 % (21.0-51.0); %Monocytes 11.4 % (0.0-10.0); %Neutrophils 72.2 % (42.0-75.0); Hemoglobin 15.8 g/dL (14.0-18.0); Mean Corpuscular HGB CONC 32.7 g/dL (32.0-36.0); Mean Corpuscular Hemoglobin 29.3 pg (27.0-31.0); Mean Corpuscular Volume 89.6 fL (78.0-98.0); Mean Platelet Volume 8.5 fL (7.4-10.4); Platelet Count 213 thou/uL (130-400); RBC Distribution Width 14.4 % (11.5-14.5); White Blood Cell (WBC) Count 12.6 thou/uL (4.8-10.8)
--- NOTE | 2020-06-05 07:51 | RAD ---
XR Chest 1 View Portable History: Vomiting Comparison: Radiograph July 2019 Findings: Heart size upper limits of normal. No confluent airspace consolidation, pneumothorax or eff usion. No acute osseous abnormality. Likely old injury left humeral neck. Impression: Mild hypoinflation otherwise no acute intrathoracic abnormality.
[2020-06-05 07:55] LABS: ALT (SGPT) 36 U/L (8-55); AST (SGOT) 29 U/L (5-34); Albumin 4.1 g/dL (3.4-4.8); Alkaline Phosphatase 94 U/L (40-110); Anion Gap 16 mmol/L (10-20); BUN (Urea Nitrogen) 18 mg/dL (8.4-25.7); CK (CPK) 261 U/L (30-200); Calc. Creatinine Clearance 0 mL/min (70-130); Calcium 8.9 mg/dL (7.8-10.44); Carbon Dioxide 22 mmol/L (23-31); Chloride 106 mmol/L (98-107); Globulin 3.9 g/dL (2.4-3.5); Glucose 101 mg/dL (80-115); Lipase 46 U/L (8-78); Potassium 4.2 mmol/L (3.5-5.1); Sodium 140 mmol/L (136-145)
[2020-06-05 07:56] LABS: Acetaminophen Less than 6.0 mcg/mL (10.0-30.0); Alcohol Less than 10 mg/dL (Less than 10); Salicylate Less than 8.0 mg/dL (15.0-30.0)
--- NOTE | 2020-06-05 08:55 | CT ---
CT Abdomen Pelvis W Con History: Nausea and vomiting Comparison: None. Findings: Lung bases are clear. No pericardial effusion. Normal submucosal edema of the esophagus. Normal proximal small bowel rotation. Mild of scar plaque with less than 50% narrowing of the celiac artery. Liver, gallbladder, spleen are unremarkable as well as adrenal glands. No hydronephrosis. No dilated loops of large or small bowel. Contrast has transited to the small bowel into the majority of the large bowel. Moderate diverticular disease sigmoid colon without active inflammation. Impression: 1. Abnormal mucosal hyperenhancement and some mucosal edema of the distal esophagus may reflect esoph agitis. Nonemergent evaluation with upper endoscopy recommended. 2. Along the left ventricular apex is a nonenhancing focal area of what may reflect intramural fat fr om prior infarction. Left ventricular apex thrombosis felt somewhat less likely and correlation with echocardiogram recommended. This is best seen on axial image 11 and 12. 3. No evidence for bowel obstruction.
[2020-06-05 09:33] LABS: Bilirubin Negative (Negative); Blood, Urine Negative (Negative); Clarity Clear (Clear); Glucose, Urine (Dipstick) Normal (Negative); Ketone, Urine Negative (Negative); Leukocyte Negative Leu/uL (Negative); Nitrite Negative (Negative); Protein, Urine (Dipstick) Negative (Neg-Trace); Specific Gravity, Urine 1.013 (1.002-1.036); Urobilinogen Normal mg/dL (Less than 2); pH, Urine 7.5 (5.0-9.0)
[2020-06-05] MEDS ORDERED: Iopamidol-370 76% 500 ML 1 ML ONE (09:43)
[2020-06-05 09:50] LABS: Amphetamine Not Detected (NotDetected); Barbiturates Screen Not Detected (NotDetected); Benzodiazepine Screen Not Detected (NotDetected); Cocaine Metabolite Screen Detected (NotDetected); Medtox Control Line Valid? VALID (VALID); Medtox Reader # READER 4; Methadone Not Detected (NotDetected); Methamphetamine Not Detected (NotDetected); Opiate Screen Not Detected (NotDetected); Oxycodone Screen Not Detected (NotDetected); Phencyclidine (PCP) Not Detected (NotDetected); THC/Cannabinoid Screen Not Detected (NotDetected); Tricyclic Screen Not Detected (NotDetected)
== END 2020-06-05 11:40 | disposition home or self-care (01) ==
LOC: ERS 07:02
DX: F14.10 Cocaine abuse, uncomplicated (principal); K20.90 Esophagitis, unspecified without bleeding; I10 Essential (primary) hypertension; F17.210 Nicotine dependence, cigarettes, uncomplicated; Z86.73 Personal history of transient ischemic attack (TIA), and cerebral infarction without residual deficits
CPT/HCPCS: 36415; 71045; 74177; 80053; 80306; 80307; 81003; 82550; 83690; 83880; 84484; 85025; 93005; 96365; 96375; J2405; J3411; Q9967

== ENCOUNTER 2020-10-31 12:02 | Inpatient (IN) | payer SELFPAY ==
[2020-10-31] MEDS ORDERED: Aspirin Chewable 81 MG TAB ONE (13:52)
[2020-10-31] MEDS ORDERED: Nitroglycerin 2% Ointment 1 INCH/1 GM Packet ONE ×2 (13:52→21:45)
[2020-10-31] MEDS ORDERED: Metoclopramide HCl 10 MG/2 ML VIAL ONE (13:52)
[2020-10-31 14:01] LABS: #Basophils 0.1 thou/uL (0.0-0.2); #Eosinphils 0.2 thou/uL (0.0-0.7); #Lymphocytes 1.8 thou/uL (1.20-3.40); #Monocytes 1.2 thou/uL (0.11-0.59); #Neutrophils 7.1 thou/uL (1.40-6.50); %Basophils 0.7 % (0.0-1.0); %Eosinophils 1.6 % (0.0-10.0); %Lymphocytes 17.5 % (21.0-51.0); %Monocytes 11.9 % (0.0-10.0); %Neutrophils 68.3 % (42.0-75.0); Hemoglobin 15.2 g/dL (14.0-18.0); Mean Corpuscular HGB CONC 32.2 g/dL (32.0-36.0); Mean Corpuscular Hemoglobin 28.8 pg (27.0-31.0); Mean Corpuscular Volume 89.4 fL (78.0-98.0); Mean Platelet Volume 8.9 fL (7.4-10.4); Platelet Count 208 thou/uL (130-400); RBC Distribution Width 14.8 % (11.5-14.5); Red Blood Cell (RBC) Count 5.27 mill/uL (4.70-6.10); White Blood Cell (WBC) Count 10.4 thou/uL (4.8-10.8)
[2020-10-31 14:22] LABS: ALT (SGPT) 24 U/L (8-55); AST (SGOT) 26 U/L (5-34); Albumin 4.1 g/dL (3.4-4.8); Alkaline Phosphatase 87 U/L (40-110); Anion Gap 14 mmol/L (10-20); BUN (Urea Nitrogen) 25 mg/dL (8.4-25.7); Bilirubin, Total 1.1 mg/dL (0.2-1.2); Calc. Creatinine Clearance 0 mL/min (70-130); Calcium 9.4 mg/dL (7.8-10.44); Carbon Dioxide 24 mmol/L (23-31); Chloride 105 mmol/L (98-107); Globulin 3.9 g/dL (2.4-3.5); Glucose 108 mg/dL (80-115); Lipase 45 U/L (8-78); Potassium 4.1 mmol/L (3.5-5.1); Sodium 139 mmol/L (136-145)
[2020-10-31] MEDS ORDERED: Ondansetron PF 4 MG/2 ML Vial IVP PRN (15:40)
[2020-10-31] MEDS ORDERED: Enoxaparin Sodium 40 MG/0.4 ML SYRINGE SC SCH (15:45)
[2020-10-31] MEDS ORDERED: Pantoprazole 40 MG VIAL ONE (16:15)
[2020-10-31] MEDS ORDERED: Lidocaine 2% Viscous Solution 10 ML, Aluminum & Magnesium Hydroxide 30 ML SSW SCH (16:30)
[2020-10-31] MEDS ORDERED: Carvedilol 6.25 MG TAB PO SCH (17:00)
[2020-10-31 17:08] LABS: Troponin I Less than 0.010 ng/mL (< 0.028)
[2020-10-31 17:33] LABS: Bilirubin Negative (Negative); Blood, Urine Negative (Negative); Glucose, Urine (Dipstick) Negative (Negative); Ketone, Urine Trace mg/dL (Negative); Leukocyte Negative (Negative); Nitrite Negative (Negative); Protein, Urine (Dipstick) Negative (Neg-Trace); Specific Gravity, Urine 1.025 (1.005-1.030); Urobilinogen 0.2 mg/dL (Less than 2)
[2020-10-31 17:37] LABS: Bacteria/HPF None Seen HPF (None Seen); RBC/HPF 0-3 HPF (0-3); Squamous Epithelial 0-3 HPF (0-3); WBC/HPF 0-3 HPF (0-3)
[2020-10-31 17:38] LABS: Clarity Clear (Clear)
[2020-10-31] MEDS ORDERED: Enoxaparin Sodium 40 MG/0.4 ML SYRINGE ONE (17:40)
[2020-10-31] MEDS ORDERED: Mag-Al 1200 mg/1200 mg/30 ML UDCUP ONE (17:40)
[2020-10-31] MEDS ORDERED: Lidocaine Viscous Sol 2% 15 ml UD Cup ONE (17:40)
[2020-10-31 20:20] LABS: Troponin I Less than 0.010 ng/mL (< 0.028)
[2020-10-31] MEDS: Nitroglycerin 2% Ointment 1 INCH/1 GM Packet TOP SCH (22:00)
[2020-10-31 23:21] LABS: Troponin I Less than 0.010 ng/mL (< 0.028)
[2020-11-01] MEDS: Nitroglycerin 2% Ointment 1 INCH/1 GM Packet TOP SCH ×3 (07:34→17:02)
[2020-11-01] MEDS ORDERED: Clopidogrel Bisulfate 75 MG TAB ONE (08:02)
[2020-11-01] MEDS ORDERED: Aspirin Chewable 81 MG TAB ONE (08:02)
[2020-11-01] MEDS ORDERED: Pantoprazole 40 MG VIAL ONE (08:02)
[2020-11-01] MEDS: Aspirin Chewable 81 MG TAB PO SCH (08:07)
[2020-11-01] MEDS: Enoxaparin Sodium 40 MG/0.4 ML SYRINGE SC SCH (08:07)
[2020-11-01] MEDS: Pantoprazole 40 MG VIAL IVP SCH (08:08)
[2020-11-01 08:33] LABS: Amphetamine Not Detected (NotDetected); Barbiturates Screen Not Detected (NotDetected); Benzodiazepine Screen Not Detected (NotDetected); Cocaine Metabolite Screen Detected (NotDetected); Medtox Control Line Valid? VALID (VALID); Medtox Reader # READER 4; Methadone Not Detected (NotDetected); Methamphetamine Not Detected (NotDetected); Opiate Screen Not Detected (NotDetected); Oxycodone Screen Not Detected (NotDetected); Phencyclidine (PCP) Not Detected (NotDetected); THC/Cannabinoid Screen Not Detected (NotDetected); Tricyclic Screen Not Detected (NotDetected)
[2020-11-01] MEDS ORDERED: Regadenoson 0.4 MG/5 ML SYRINGE ONE (08:53)
[2020-11-01] MEDS ORDERED: Clopidogrel Bisulfate 75 MG TAB PO SCH (09:00)
[2020-11-01 11:14] LABS: SARS-CoV-2 PCR by NAA Not Detected (NotDetected)
[2020-11-01 12:27] VITALS: BMI 28.9
[2020-11-02] MEDS: Nitroglycerin 2% Ointment 1 INCH/1 GM Packet TOP SCH ×2 (01:31→08:28)
[2020-11-02] MEDS: Enoxaparin Sodium 40 MG/0.4 ML SYRINGE SC SCH (08:26)
[2020-11-02] MEDS: Aspirin Chewable 81 MG TAB PO SCH (08:26)
[2020-11-02] MEDS: Pantoprazole 40 MG VIAL IVP SCH (08:27)
[2020-11-02 12:48] VITALS: BP 137/95; TEMP 98.1
== END 2020-11-02 16:01 | disposition home or self-care (01) | DRG 918 ==
LOC: ERS 12:02 → ERHOLD 15:29 → 2SW 11-01 11:19 → OBSVTOIN 11-01 16:21
PROVIDERS: ADMIT Internal Medicine; ATTEND Student in an Organized Health Care Education/Training Program
DX: T40.5X1A Poisoning by cocaine, accidental (unintentional), initial encounter (principal); I42.8 Other cardiomyopathies; Z20.822 Contact with and (suspected) exposure to COVID-19; I12.9 Hypertensive chronic kidney disease with stage 1 through stage 4 chronic kidney disease, or unspecified chronic kidney disease; I25.10 Atherosclerotic heart disease of native coronary artery without angina pectoris; F17.210 Nicotine dependence, cigarettes, uncomplicated; N18.30 Chronic kidney disease, stage 3 unspecified; I65.22 Occlusion and stenosis of left carotid artery; E78.5 Hyperlipidemia, unspecified; F19.10 Other psychoactive substance abuse, uncomplicated; K21.00 Gastro-esophageal reflux disease with esophagitis, without bleeding; Z95.5 Presence of coronary angioplasty implant and graft; Z86.73 Personal history of transient ischemic attack (TIA), and cerebral infarction without residual deficits; Z79.01 Long term (current) use of anticoagulants; Z79.82 Long term (current) use of aspirin; Z79.899 Other long term (current) drug therapy; Z91.14 Patient's other noncompliance with medication regimen; I25.2 Old myocardial infarction
CPT/HCPCS: 36415; 71045; 78452; 80053; 80061; 80306; 81003; 83690; 84484; 85025; 90471; 90732; 93005; 93017; 93306; 96365; 96372; 96375; A9500; C9113; G0009; G0378; J1650; J2765; J2785; U0003; U0005

== ENCOUNTER 2020-11-11 22:52 | Emergency (ER) | payer SELFPAY ==
[2020-11-11] MEDS ORDERED: Famotidine 20 MG TAB ONE (23:15)
[2020-11-11] MEDS ORDERED: Metoclopramide HCl 10 MG TAB ONE (23:19)
== END 2020-11-12 03:48 | disposition home or self-care (01) ==
LOC: ERS 22:52
DX: R06.6 Hiccough (principal); I10 Essential (primary) hypertension; F17.210 Nicotine dependence, cigarettes, uncomplicated
CPT/HCPCS: 93005

== ENCOUNTER 2021-01-03 | Emergency (ER) | payer SELFPAY | END 2021-01-04 00:58 | disposition short-term general hospital (02) ==

== ENCOUNTER 2021-06-15 19:40 | Emergency (ER) | payer SELFPAY ==
[2021-06-15] MEDS ORDERED: Metoclopramide HCl 10 MG TAB ONE (20:43)
[2021-06-15] MEDS ORDERED: Diazepam 5 MG TAB ONE (23:44)
== END 2021-06-16 05:05 | disposition home or self-care (01) ==
LOC: ERS 19:40
DX: R06.6 Hiccough (principal); I10 Essential (primary) hypertension; Z86.73 Personal history of transient ischemic attack (TIA), and cerebral infarction without residual deficits; F17.210 Nicotine dependence, cigarettes, uncomplicated
CPT/HCPCS: 93005

== ENCOUNTER 2021-06-24 08:02 | Emergency (ER) | payer OTHER, SELFPAY ==
[2021-06-24 08:31] LABS: #Basophils 0.1 thou/uL (0.0-0.2); #Eosinphils 0.2 thou/uL (0.0-0.7); #Lymphocytes 1.8 thou/uL (1.20-3.40); #Monocytes 1.5 thou/uL (0.11-0.59); %Basophils 0.6 % (0.0-1.0); %Lymphocytes 11.7 % (21.0-51.0); %Monocytes 9.8 % (0.0-10.0); %Neutrophils 76.9 % (42.0-75.0); Hemoglobin 12.7 g/dL (14.0-18.0); Mean Corpuscular HGB CONC 32.8 g/dL (32.0-36.0); Mean Corpuscular Hemoglobin 26.5 pg (27.0-31.0); Mean Corpuscular Volume 80.8 fL (78.0-98.0); Mean Platelet Volume 9.2 fL (7.4-10.4); Platelet Count 310 thou/uL (130-400); RBC Distribution Width 16.2 % (11.5-14.5); White Blood Cell (WBC) Count 15.6 thou/uL (4.8-10.8)
[2021-06-24 08:45] LABS: PTT 29.7 sec (22.9-36.1); Prothrombin Time 13.5 sec (12.0-14.7)
[2021-06-24 08:52] LABS: Acetaminophen Less than 6.0 mcg/mL (10.0-30.0); Alcohol Less than 10 mg/dL (Less than 10); Magnesium 1.9 mg/dL (1.6-2.6); Salicylate Less than 8.0 mg/dL (15.0-30.0)
[2021-06-24 08:58] LABS: ALT (SGPT) 28 U/L (8-55); AST (SGOT) 47 U/L (5-34); Albumin 4.4 g/dL (3.4-4.8); Alkaline Phosphatase 109 U/L (40-110); Anion Gap 20 mmol/L (10-20); BUN (Urea Nitrogen) 16 mg/dL (8.4-25.7); Bilirubin, Total 0.7 mg/dL (0.2-1.2); Calc. Creatinine Clearance 0 mL/min (70-130); Calcium 10.1 mg/dL (7.8-10.44); Carbon Dioxide 22 mmol/L (23-31); Chloride 101 mmol/L (98-107); Globulin 4.5 g/dL (2.4-3.5); Glucose 103 mg/dL (80-115); Lipase 50 U/L (8-78); Potassium 4.8 mmol/L (3.5-5.1); Protein, Total 8.9 g/dL (5.8-8.1); Sodium 138 mmol/L (136-145)
[2021-06-24 11:40] LABS: Lactic Acid 0.9 mmol/L (0.5-2.2)
== END 2021-06-24 13:20 | disposition home or self-care (01) ==
LOC: ERS 08:02
DX: S00.211A Abrasion of right eyelid and periocular area, initial encounter (principal); S00.31XA Abrasion of nose, initial encounter; S00.511A Abrasion of lip, initial encounter; M54.9 Dorsalgia, unspecified; I10 Essential (primary) hypertension; F17.210 Nicotine dependence, cigarettes, uncomplicated; R00.0 Tachycardia, unspecified; W01.198A Fall on same level from slipping, tripping and stumbling with subsequent striking against other object, initial encounter; Z86.73 Personal history of transient ischemic attack (TIA), and cerebral infarction without residual deficits
CPT/HCPCS: 36415; 36416; 70450; 71045; 72125; 72170; 80053; 80307; 83605; 83690; 83735; 84484; 85025; 85610; 85730; 93005; 94760

== ENCOUNTER 2021-11-02 14:10 | Emergency (ER) | payer OTHER, SELFPAY ==
[2021-11-02 16:43] LABS: #Eosinphils 0.1 thou/uL (0.0-0.7); #Lymphocytes 1.8 thou/uL (1.20-3.40); #Monocytes 1.2 thou/uL (0.11-0.59); #Neutrophils 5.9 thou/uL (1.40-6.50); %Basophils 0.5 % (0.0-1.0); %Eosinophils 0.7 % (0.0-10.0); %Monocytes 12.9 % (0.0-10.0); %Neutrophils 65.9 % (42.0-75.0); Hemoglobin 12.1 g/dL (14.0-18.0); Mean Corpuscular HGB CONC 31.3 g/dL (32.0-36.0); Mean Corpuscular Hemoglobin 24.6 pg (27.0-31.0); Mean Corpuscular Volume 78.7 fL (78.0-98.0); Mean Platelet Volume 7.8 fL (7.4-10.4); Platelet Count 247 thou/uL (130-400); RBC Distribution Width 18.6 % (11.5-14.5); Red Blood Cell (RBC) Count 4.92 mill/uL (4.70-6.10); White Blood Cell (WBC) Count 8.9 thou/uL (4.8-10.8)
[2021-11-02 17:20] LABS: ALT (SGPT) 23 U/L (8-55); AST (SGOT) 34 U/L (5-34); Albumin 3.8 g/dL (3.4-4.8); Alkaline Phosphatase 86 U/L (40-110); Anion Gap 15 mmol/L (10-20); BUN (Urea Nitrogen) 17 mg/dL (8.4-25.7); Bilirubin, Total 0.4 mg/dL (0.2-1.2); Calc. Creatinine Clearance 0 mL/min (70-130); Calcium 9.3 mg/dL (7.8-10.44); Carbon Dioxide 21 mmol/L (23-31); Chloride 110 mmol/L (98-107); Globulin 4.2 g/dL (2.4-3.5); Glucose 103 mg/dL (80-115); Potassium 5.2 mmol/L (3.5-5.1); Sodium 141 mmol/L (136-145)
== END 2021-11-02 18:50 | disposition home or self-care (01) ==
LOC: ERS 14:10
DX: S70.01XA Contusion of right hip, initial encounter (principal); S80.01XA Contusion of right knee, initial encounter; E87.5 Hyperkalemia; I12.9 Hypertensive chronic kidney disease with stage 1 through stage 4 chronic kidney disease, or unspecified chronic kidney disease; F17.210 Nicotine dependence, cigarettes, uncomplicated; N18.9 Chronic kidney disease, unspecified; W18.30XA Fall on same level, unspecified, initial encounter; Y93.01 Activity, walking, marching and hiking; Y92.512 Supermarket, store or market as the place of occurrence of the external cause; Z86.73 Personal history of transient ischemic attack (TIA), and cerebral infarction without residual deficits
CPT/HCPCS: 36415; 71045; 80053; 84484; 85025; 93005; 96360

== ENCOUNTER 2021-11-29 01:38 | Inpatient (IN) | payer OTHER, SELFPAY ==
[2021-11-29 02:05] LABS: #Lymphocytes 1.6 thou/uL (1.20-3.40); %Basophils 0.2 % (0.0-1.0); %Eosinophils 0.3 % (0.0-10.0); %Lymphocytes 13.7 % (21.0-51.0); %Monocytes 8.2 % (0.0-10.0); %Neutrophils 77.6 % (42.0-75.0); Hemoglobin 12.8 g/dL (14.0-18.0); Mean Corpuscular HGB CONC 31.7 g/dL (32.0-36.0); Mean Corpuscular Hemoglobin 24.8 pg (27.0-31.0); Mean Corpuscular Volume 78.3 fL (78.0-98.0); Mean Platelet Volume 7.5 fL (7.4-10.4); Platelet Count 227 thou/uL (130-400); Red Blood Cell (RBC) Count 5.15 mill/uL (4.70-6.10); White Blood Cell (WBC) Count 11.6 thou/uL (4.8-10.8)
[2021-11-29 02:26] LABS: ALT (SGPT) 23 U/L (8-55); AST (SGOT) 23 U/L (5-34); Alkaline Phosphatase 91 U/L (40-110); Anion Gap 15 mmol/L (10-20); BUN (Urea Nitrogen) 21 mg/dL (8.4-25.7); Bilirubin, Total 0.7 mg/dL (0.2-1.2); Calc. Creatinine Clearance 0 mL/min (70-130); Calcium 9.6 mg/dL (7.8-10.44); Carbon Dioxide 22 mmol/L (23-31); Chloride 108 mmol/L (98-107); Estimated GFR 46; Globulin 3.8 g/dL (2.4-3.5); Glucose 124 mg/dL (80-115); Protein, Total 7.8 g/dL (5.8-8.1); Sodium 141 mmol/L (136-145)
[2021-11-29] MEDS ORDERED: Labetalol HCl 100 MG/20 ML VIAL SLOW IVP PRN (03:49)
[2021-11-29] MEDS ORDERED: Acetaminophen 325 MG TAB PO PRN (03:49)
[2021-11-29] MEDS ORDERED: hydrALAZINE 20 MG/ML VIAL SLOW IVP PRN (03:49)
[2021-11-29] MEDS ORDERED: Sodium Chloride 0.9% 500 ML IV SCH (04:15)
[2021-11-29] MEDS ORDERED: Aspirin Chewable 81 MG TAB ONE (04:28)
[2021-11-29 04:58] LABS: Bacteria/HPF None Seen HPF (None Seen); Bilirubin Negative (Negative); Blood, Urine Negative (Negative); Clarity Clear (Clear); Glucose, Urine (Dipstick) Normal (Negative); Ketone, Urine Negative (Negative); Leukocyte Negative Leu/uL (Negative); Nitrite Negative (Negative); Protein, Urine (Dipstick) 30 mg/dL (Neg-Trace); RBC/HPF 0-3 HPF (0-3); Specific Gravity, Urine 1.024 (1.002-1.036); Squamous Epithelial None Seen HPF (0-3); Urobilinogen Normal mg/dL (Less than 2); WBC/HPF 0-3 HPF (0-3)
[2021-11-29 05:10] VITALS: BMI 25.9
[2021-11-29 08:08] LABS: Amphetamine Not Detected (NotDetected); Barbiturates Screen Not Detected (NotDetected); Benzodiazepine Screen Not Detected (NotDetected); Cocaine Metabolite Screen Detected (NotDetected); Methadone Not Detected (NotDetected); Methamphetamine Not Detected (NotDetected); Opiate Screen Not Detected (NotDetected); Oxycodone Screen Not Detected (NotDetected); Phencyclidine (PCP) Not Detected (NotDetected); THC/Cannabinoid Screen Not Detected (NotDetected); Tricyclic Screen Not Detected (NotDetected)
[2021-11-29] MEDS ORDERED: Iopamidol-370 76% 500 ML 1 ML ONE (09:50)
[2021-11-29] MEDS ORDERED: hydrALAZINE 20 MG/ML VIAL ONE (16:07)
[2021-11-29 17:32] LABS: Bacteria/HPF None Seen HPF (None Seen); Bilirubin Negative (Negative); Blood, Urine Negative (Negative); Clarity Clear (Clear); Glucose, Urine (Dipstick) Normal (Negative); Ketone, Urine Trace mg/dL (Negative); Leukocyte Negative Leu/uL (Negative); Nitrite Negative (Negative); Protein, Urine (Dipstick) 10 mg/dL (Neg-Trace); RBC/HPF None Seen HPF (0-3); Squamous Epithelial 0-3 HPF (0-3); Urobilinogen Normal mg/dL (Less than 2); WBC/HPF 0-3 HPF (0-3); pH, Urine 6.5 (5.0-9.0)
[2021-11-29 17:34] LABS: Urine Culture Reflex No No
[2021-11-30 05:57] LABS: Anion Gap 17 mmol/L (10-20); BUN (Urea Nitrogen) 41 mg/dL (8.4-25.7); Calc. Creatinine Clearance 66 mL/min (70-130); Calcium 9.4 mg/dL (7.8-10.44); Carbon Dioxide 18 mmol/L (23-31); Chloride 109 mmol/L (98-107); Cholesterol 190 mg/dl (< 200 Desired); Estimated GFR 62; Glucose 131 mg/dL (80-115); HDL Cholesterol 48 mg/dL (>60 Neg Risk); LDL Cholesterol, Calculated 124 mg/dL; Potassium 4.3 mmol/L (3.5-5.1); Sodium 140 mmol/L (136-145); Triglycerides 92 mg/dL (Less than 150)
[2021-11-30 06:34] LABS: #Lymphocytes 1.7 thou/uL (1.20-3.40); #Monocytes 1.5 thou/uL (0.11-0.59); #Neutrophils 10.4 thou/uL (1.40-6.50); %Basophils 0.1 % (0.0-1.0); %Eosinophils 0.1 % (0.0-10.0); %Lymphocytes 12.3 % (21.0-51.0); %Monocytes 10.9 % (0.0-10.0); %Neutrophils 76.6 % (42.0-75.0); Anisocytosis SLIGHT = 6-15 cells (100X) (0-5/hpf); Hemoglobin 11.9 g/dL (14.0-18.0); MDiff Complete? YES; Mean Corpuscular HGB CONC 31.5 g/dL (32.0-36.0); Mean Corpuscular Hemoglobin 24.7 pg (27.0-31.0); Mean Corpuscular Volume 78.5 fL (78.0-98.0); Platelet Count 231 thou/uL (130-400); RBC Distribution Width 19.6 % (11.5-14.5); Red Blood Cell (RBC) Count 4.82 mill/uL (4.70-6.10); White Blood Cell (WBC) Count 13.6 thou/uL (4.8-10.8)
[2021-11-30] MEDS: Aspirin Chewable 81 MG TAB PO SCH (08:57)
[2021-11-30] MEDS: Heparin 5,000 UNITS/ML VIAL SC SCH ×2 (08:57→20:50)
[2021-11-30] MEDS: Atorvastatin Calcium 40 MG TAB PO SCH (20:46)
[2021-12-01] MEDS: Heparin 5,000 UNITS/ML VIAL SC SCH ×2 (09:28→21:34)
[2021-12-01] MEDS ORDERED: Aspirin 300 MG Suppository PR SCH (11:15)
[2021-12-01] MEDS ORDERED: Acetaminophen 650 MG Suppository PR PRN (11:15)
[2021-12-01] MEDS: Aspirin Chewable 81 MG TAB PO SCH (11:29)
[2021-12-01] MEDS ORDERED: Metoclopramide HCl 10 MG/2 ML VIAL IVP SCH (12:45)
[2021-12-01] MEDS: Ondansetron PF 4 MG/2 ML Vial IVP PRN (14:35)
[2021-12-01] MEDS: Promethazine HCl 12.5 MG in Sodium Chloride 0.9% 50 ML IVPB PRN (18:34)
[2021-12-01] MEDS: Dextrose 5 %-0.45 % NaCl 1,000 ML IV SCH (21:34)
[2021-12-01] MEDS: Pantoprazole 40 MG VIAL IVP SCH (21:35)
[2021-12-01] MEDS: Atorvastatin Calcium 40 MG TAB PO SCH (21:35)
[2021-12-02] MEDS: Promethazine HCl 12.5 MG in Sodium Chloride 0.9% 50 ML IVPB PRN (01:01)
[2021-12-02 07:35] LABS: #Basophils 0.1 thou/uL (0.0-0.2); #Eosinphils 0.1 thou/uL (0.0-0.7); #Lymphocytes 2.3 thou/uL (1.20-3.40); #Monocytes 2.2 thou/uL (0.11-0.59); #Neutrophils 12.6 thou/uL (1.40-6.50); %Basophils 0.5 % (0.0-1.0); %Eosinophils 0.3 % (0.0-10.0); %Lymphocytes 13.3 % (21.0-51.0); %Monocytes 12.7 % (0.0-10.0); %Neutrophils 73.1 % (42.0-75.0); Hemoglobin 10.1 g/dL (14.0-18.0); Mean Corpuscular HGB CONC 31.3 g/dL (32.0-36.0); Mean Corpuscular Hemoglobin 25.2 pg (27.0-31.0); Mean Corpuscular Volume 80.4 fL (78.0-98.0); Mean Platelet Volume 10.5 fL (7.4-10.4); Platelet Count 247 thou/uL (130-400); White Blood Cell (WBC) Count 17.2 thou/uL (4.8-10.8)
[2021-12-02 07:50] LABS: Anion Gap 17 mmol/L (10-20); BUN (Urea Nitrogen) 44 mg/dL (8.4-25.7); Calc. Creatinine Clearance 50 mL/min (70-130); Calcium 8.8 mg/dL (7.8-10.44); Carbon Dioxide 20 mmol/L (23-31); Chloride 108 mmol/L (98-107); Estimated GFR 45; Glucose 139 mg/dL (80-115); Potassium 4.6 mmol/L (3.5-5.1); Sodium 140 mmol/L (136-145)
[2021-12-02] MEDS: Heparin 5,000 UNITS/ML VIAL SC SCH ×2 (08:13→20:23)
[2021-12-02] MEDS: Aspirin 300 MG Suppository PR SCH (08:14)
[2021-12-02] MEDS: Pantoprazole 40 MG VIAL IVP SCH ×2 (08:14→20:24)
[2021-12-02] MEDS: Dextrose 5 %-0.45 % NaCl 1,000 ML IV SCH ×2 (08:30→22:49)
[2021-12-02] MEDS: Atorvastatin Calcium 40 MG TAB PO SCH (20:24)
[2021-12-02] MEDS: Metoprolol Tartrate 25 MG TAB PO SCH (22:48)
[2021-12-03 05:42] LABS: #Basophils 0.1 thou/uL (0.0-0.2); #Eosinphils 0.1 thou/uL (0.0-0.7); #Lymphocytes 2.4 thou/uL (1.20-3.40); #Monocytes 1.9 thou/uL (0.11-0.59); #Neutrophils 8.3 thou/uL (1.40-6.50); %Basophils 0.7 % (0.0-1.0); %Eosinophils 0.9 % (0.0-10.0); %Lymphocytes 18.8 % (21.0-51.0); %Monocytes 14.5 % (0.0-10.0); %Neutrophils 65.2 % (42.0-75.0); Hemoglobin 9.5 g/dL (14.0-18.0); Mean Corpuscular HGB CONC 30.9 g/dL (32.0-36.0); Mean Corpuscular Hemoglobin 25.4 pg (27.0-31.0); Mean Platelet Volume 11.3 fL (7.4-10.4); Platelet Count 233 thou/uL (130-400); RBC Distribution Width 20.4 % (11.5-14.5); Red Blood Cell (RBC) Count 3.73 mill/uL (4.70-6.10); White Blood Cell (WBC) Count 12.7 thou/uL (4.8-10.8)
[2021-12-03 06:06] LABS: ALT (SGPT) 13 U/L (8-55); AST (SGOT) 16 U/L (5-34); Albumin 3.5 g/dL (3.4-4.8); Alkaline Phosphatase 65 U/L (40-110); Anion Gap 16 mmol/L (10-20); BUN (Urea Nitrogen) 30 mg/dL (8.4-25.7); Bilirubin, Total 0.9 mg/dL (0.2-1.2); Calc. Creatinine Clearance 60 mL/min (70-130); Calcium 8.6 mg/dL (7.8-10.44); Carbon Dioxide 19 mmol/L (23-31); Chloride 108 mmol/L (98-107); Estimated GFR 56; Glucose 114 mg/dL (80-115); Potassium 4.5 mmol/L (3.5-5.1); Protein, Total 6.5 g/dL (5.8-8.1); Sodium 138 mmol/L (136-145)
[2021-12-03] MEDS: Metoprolol Tartrate 25 MG TAB PO SCH ×2 (07:33→21:58)
[2021-12-03] MEDS: Pantoprazole 40 MG VIAL IVP SCH ×2 (09:23→21:57)
[2021-12-03] MEDS: Aspirin 300 MG Suppository PR SCH (09:23)
[2021-12-03] MEDS: Heparin 5,000 UNITS/ML VIAL SC SCH ×2 (09:23→21:57)
[2021-12-03] MEDS: Dextrose 5 %-0.45 % NaCl 1,000 ML IV SCH (09:25)
[2021-12-03] MEDS ORDERED: chlorproMAZINE HCl 25 MG TAB PO SCH (14:00)
[2021-12-03] MEDS: Atorvastatin Calcium 40 MG TAB PO SCH (21:57)
[2021-12-03] MEDS: chlorproMAZINE HCl 25 MG TAB PO SCH (21:58)
[2021-12-04] MEDS: chlorproMAZINE HCl 25 MG TAB PO SCH ×3 (05:41→21:17)
[2021-12-04 05:45] LABS: Anion Gap 12 mmol/L (10-20); BUN (Urea Nitrogen) 23 mg/dL (8.4-25.7); Calc. Creatinine Clearance 63 mL/min (70-130); Calcium 8.7 mg/dL (7.8-10.44); Carbon Dioxide 23 mmol/L (23-31); Chloride 109 mmol/L (98-107); Estimated GFR 59; Glucose 96 mg/dL (80-115); Potassium 4.3 mmol/L (3.5-5.1); Sodium 140 mmol/L (136-145)
[2021-12-04 06:09] LABS: Band 6 % (5-11); Hemoglobin 8.2 g/dL (14.0-18.0); Lymphocytes 20 % (21-51); MDiff Complete? YES; Mean Corpuscular HGB CONC 30.7 g/dL (32.0-36.0); Mean Corpuscular Hemoglobin 25.4 pg (27.0-31.0); Mean Corpuscular Volume 82.6 fL (78.0-98.0); Mean Platelet Volume 10.7 fL (7.4-10.4); Monocytes 13 % (0-10); Neutrophil 61 % (42-75); Platelet Count 230 thou/uL (130-400); RBC Distribution Width 20.1 % (11.5-14.5); Red Blood Cell (RBC) Count 3.24 mill/uL (4.70-6.10); White Blood Cell (WBC) Count 12.1 thou/uL (4.8-10.8)
[2021-12-04] MEDS: Metoprolol Tartrate 25 MG TAB PO SCH ×2 (08:59→21:13)
[2021-12-04] MEDS: Pantoprazole 40 MG VIAL IVP SCH ×2 (09:01→21:13)
[2021-12-04] MEDS: Heparin 5,000 UNITS/ML VIAL SC SCH ×2 (09:01→21:14)
[2021-12-04] MEDS: Aspirin 300 MG Suppository PR SCH (12:13)
[2021-12-04] MEDS ORDERED: Aspirin Chewable 81 MG TAB PO SCH (12:15)
[2021-12-04] MEDS: Atorvastatin Calcium 40 MG TAB PO SCH (21:14)
[2021-12-05] MEDS: chlorproMAZINE HCl 25 MG TAB PO SCH (04:05)
[2021-12-05] MEDS: Metoprolol Tartrate 25 MG TAB PO SCH ×2 (08:36→20:31)
[2021-12-05] MEDS: Aspirin Chewable 81 MG TAB PO SCH (08:36)
[2021-12-05] MEDS: Heparin 5,000 UNITS/ML VIAL SC SCH ×2 (08:37→20:32)
[2021-12-05] MEDS: Pantoprazole 40 MG VIAL IVP SCH ×2 (08:37→20:32)
[2021-12-05] MEDS: Baclofen 10 MG TAB PO SCH ×3 (14:52→20:32)
[2021-12-05] MEDS: Multivitamin W/ Minerals 1 TAB PO SCH (15:43)
[2021-12-05] MEDS: Atorvastatin Calcium 40 MG TAB PO SCH (20:31)
[2021-12-06] MEDS: Metoprolol Tartrate 25 MG TAB PO SCH ×2 (09:31→20:59)
[2021-12-06] MEDS: Aspirin Chewable 81 MG TAB PO SCH (09:31)
[2021-12-06] MEDS: Multivitamin W/ Minerals 1 TAB PO SCH (09:31)
[2021-12-06] MEDS: Baclofen 10 MG TAB PO SCH ×3 (09:32→20:59)
[2021-12-06] MEDS: Heparin 5,000 UNITS/ML VIAL SC SCH ×2 (09:32→21:00)
[2021-12-06] MEDS: Pantoprazole 40 MG VIAL IVP SCH ×2 (09:33→21:00)
[2021-12-06] MEDS: Atorvastatin Calcium 40 MG TAB PO SCH (20:59)
[2021-12-07] MEDS: Aspirin Chewable 81 MG TAB PO SCH (08:38)
[2021-12-07] MEDS: Multivitamin W/ Minerals 1 TAB PO SCH (08:39)
[2021-12-07] MEDS: Metoprolol Tartrate 25 MG TAB PO SCH ×2 (08:39→21:09)
[2021-12-07] MEDS: Heparin 5,000 UNITS/ML VIAL SC SCH ×2 (08:39→21:09)
[2021-12-07] MEDS: Pantoprazole 40 MG VIAL IVP SCH (08:39)
[2021-12-07] MEDS: Baclofen 10 MG TAB PO SCH ×3 (09:00→21:08)
[2021-12-07] MEDS: Atorvastatin Calcium 40 MG TAB PO SCH (21:08)
[2021-12-08 05:25] LABS: #Eosinphils 0.1 thou/uL (0.0-0.7); #Lymphocytes 1.9 thou/uL (1.20-3.40); #Monocytes 1.5 thou/uL (0.11-0.59); #Neutrophils 8.7 thou/uL (1.40-6.50); %Basophils 0.4 % (0.0-1.0); %Eosinophils 0.7 % (0.0-10.0); %Lymphocytes 15.4 % (21.0-51.0); %Monocytes 12.1 % (0.0-10.0); %Neutrophils 71.5 % (42.0-75.0); Hemoglobin 9.3 g/dL (14.0-18.0); Mean Corpuscular HGB CONC 31.1 g/dL (32.0-36.0); Mean Corpuscular Hemoglobin 25.5 pg (27.0-31.0); Mean Corpuscular Volume 82.2 fL (78.0-98.0); Mean Platelet Volume 9.2 fL (7.4-10.4); Platelet Count 357 thou/uL (130-400); RBC Distribution Width 20.2 % (11.5-14.5); Red Blood Cell (RBC) Count 3.65 mill/uL (4.70-6.10); White Blood Cell (WBC) Count 12.1 thou/uL (4.8-10.8)
[2021-12-08 05:59] LABS: Anion Gap 15 mmol/L (10-20); BUN (Urea Nitrogen) 15 mg/dL (8.4-25.7); Calc. Creatinine Clearance 61 mL/min (70-130); Calcium 9.4 mg/dL (7.8-10.44); Carbon Dioxide 22 mmol/L (23-31); Chloride 106 mmol/L (98-107); Estimated GFR 57; Glucose 113 mg/dL (80-115); Potassium 4.4 mmol/L (3.5-5.1); Sodium 139 mmol/L (136-145)
[2021-12-08] MEDS: Aspirin Chewable 81 MG TAB PO SCH (09:17)
[2021-12-08] MEDS: Baclofen 10 MG TAB PO SCH ×3 (09:18→20:06)
[2021-12-08] MEDS: Metoprolol Tartrate 25 MG TAB PO SCH ×2 (09:19→20:06)
[2021-12-08] MEDS: Multivitamin W/ Minerals 1 TAB PO SCH (09:20)
[2021-12-08] MEDS: Heparin 5,000 UNITS/ML VIAL SC SCH (09:21)
[2021-12-08] MEDS: Acetaminophen 325 MG TAB PO PRN (20:05)
[2021-12-08] MEDS: Atorvastatin Calcium 40 MG TAB PO SCH (20:06)
[2021-12-09 06:25] LABS: #Basophils 0.1 thou/uL (0.0-0.2); #Eosinphils 0.1 thou/uL (0.0-0.7); #Lymphocytes 1.8 thou/uL (1.20-3.40); #Monocytes 1.4 thou/uL (0.11-0.59); #Neutrophils 7.5 thou/uL (1.40-6.50); %Basophils 0.5 % (0.0-1.0); %Eosinophils 0.8 % (0.0-10.0); %Monocytes 12.5 % (0.0-10.0); %Neutrophils 69.2 % (42.0-75.0); Hemoglobin 9.2 g/dL (14.0-18.0); Mean Corpuscular HGB CONC 31.3 g/dL (32.0-36.0); Mean Corpuscular Hemoglobin 25.6 pg (27.0-31.0); Mean Corpuscular Volume 81.9 fL (78.0-98.0); Mean Platelet Volume 9.3 fL (7.4-10.4); Platelet Count 388 thou/uL (130-400); RBC Distribution Width 19.6 % (11.5-14.5); White Blood Cell (WBC) Count 10.8 thou/uL (4.8-10.8)
[2021-12-09 06:43] LABS: Reticulocyte Count 3.1 % (0.5-1.5)
[2021-12-09] MEDS: Aspirin Chewable 81 MG TAB PO SCH (08:30)
[2021-12-09] MEDS: Baclofen 10 MG TAB PO SCH ×3 (08:30→21:20)
[2021-12-09] MEDS: Metoprolol Tartrate 25 MG TAB PO SCH ×2 (08:31→21:20)
[2021-12-09] MEDS: Multivitamin W/ Minerals 1 TAB PO SCH (08:32)
[2021-12-09] MEDS: Atorvastatin Calcium 40 MG TAB PO SCH (21:20)
[2021-12-10] MEDS: Baclofen 10 MG TAB PO SCH ×3 (08:58→22:19)
[2021-12-10] MEDS: Aspirin Chewable 81 MG TAB PO SCH (08:58)
[2021-12-10] MEDS: Metoprolol Tartrate 25 MG TAB PO SCH ×2 (08:58→22:19)
[2021-12-10] MEDS: Multivitamin W/ Minerals 1 TAB PO SCH (08:59)
[2021-12-10] MEDS: Atorvastatin Calcium 40 MG TAB PO SCH (22:19)
[2021-12-11] MEDS: Aspirin Chewable 81 MG TAB PO SCH (09:39)
[2021-12-11] MEDS: Multivitamin W/ Minerals 1 TAB PO SCH (09:39)
[2021-12-11] MEDS: Baclofen 10 MG TAB PO SCH ×3 (09:39→21:19)
[2021-12-11] MEDS: Metoprolol Tartrate 25 MG TAB PO SCH ×2 (09:39→21:19)
[2021-12-11] MEDS: Atorvastatin Calcium 40 MG TAB PO SCH (21:19)
[2021-12-12] MEDS: Aspirin Chewable 81 MG TAB PO SCH (08:35)
[2021-12-12] MEDS: Baclofen 10 MG TAB PO SCH ×3 (08:35→20:43)
[2021-12-12] MEDS: Metoprolol Tartrate 25 MG TAB PO SCH ×2 (08:35→20:44)
[2021-12-12] MEDS: Multivitamin W/ Minerals 1 TAB PO SCH (08:35)
[2021-12-12 14:27] LABS: #Basophils 0.1 thou/uL (0.0-0.2); #Eosinphils 0.1 thou/uL (0.0-0.7); #Lymphocytes 2.1 thou/uL (1.20-3.40); #Monocytes 1.6 thou/uL (0.11-0.59); #Neutrophils 8.6 thou/uL (1.40-6.50); %Basophils 0.7 % (0.0-1.0); %Eosinophils 0.7 % (0.0-10.0); %Lymphocytes 16.9 % (21.0-51.0); %Monocytes 12.9 % (0.0-10.0); %Neutrophils 68.7 % (42.0-75.0); Hemoglobin 8.5 g/dL (14.0-18.0); Mean Corpuscular HGB CONC 31.1 g/dL (32.0-36.0); Mean Corpuscular Hemoglobin 25.2 pg (27.0-31.0); Mean Corpuscular Volume 81.1 fL (78.0-98.0); Mean Platelet Volume 8.6 fL (7.4-10.4); Platelet Count 350 thou/uL (130-400); RBC Distribution Width 19.8 % (11.5-14.5); Red Blood Cell (RBC) Count 3.36 mill/uL (4.70-6.10); White Blood Cell (WBC) Count 12.5 thou/uL (4.8-10.8)
[2021-12-12] MEDS: Atorvastatin Calcium 40 MG TAB PO SCH (20:43)
[2021-12-13] MEDS ORDERED: hydrOXYzine 25 MG TAB PO SCH (00:51)
[2021-12-13] MEDS: Melatonin 3 MG TAB PO PRN ×2 (01:05→19:50)
[2021-12-13] MEDS: Baclofen 10 MG TAB PO SCH ×3 (08:09→19:50)
[2021-12-13] MEDS: Multivitamin W/ Minerals 1 TAB PO SCH (08:09)
[2021-12-13] MEDS: Metoprolol Tartrate 25 MG TAB PO SCH ×2 (08:09→19:50)
[2021-12-13] MEDS: Aspirin Chewable 81 MG TAB PO SCH (08:09)
[2021-12-13] MEDS: Atorvastatin Calcium 40 MG TAB PO SCH (19:50)
[2021-12-14] MEDS: Baclofen 10 MG TAB PO SCH (08:36)
[2021-12-14] MEDS: Aspirin Chewable 81 MG TAB PO SCH (08:36)
[2021-12-14] MEDS: Multivitamin W/ Minerals 1 TAB PO SCH (08:36)
[2021-12-14] MEDS: Metoprolol Tartrate 25 MG TAB PO SCH ×2 (08:37→20:21)
[2021-12-14] MEDS: Acetaminophen 325 MG TAB PO PRN (08:40)
[2021-12-14] MEDS: Atorvastatin Calcium 40 MG TAB PO SCH (20:21)
[2021-12-15 05:47] LABS: Anion Gap 12 mmol/L (10-20); BUN (Urea Nitrogen) 13 mg/dL (8.4-25.7); Calc. Creatinine Clearance 54 mL/min (70-130); Calcium 9.5 mg/dL (7.8-10.44); Carbon Dioxide 27 mmol/L (23-31); Chloride 104 mmol/L (98-107); Estimated GFR 49; Glucose 99 mg/dL (80-115); Potassium 4.4 mmol/L (3.5-5.1); Sodium 139 mmol/L (136-145)
[2021-12-15] MEDS: Multivitamin W/ Minerals 1 TAB PO SCH (09:04)
[2021-12-15] MEDS: Metoprolol Tartrate 25 MG TAB PO SCH ×2 (09:04→19:54)
[2021-12-15] MEDS: Aspirin Chewable 81 MG TAB PO SCH (09:04)
[2021-12-15] MEDS: Atorvastatin Calcium 40 MG TAB PO SCH (19:54)
[2021-12-16 06:05] LABS: Anion Gap 14 mmol/L (10-20); BUN (Urea Nitrogen) 15 mg/dL (8.4-25.7); Calc. Creatinine Clearance 53 mL/min (70-130); Calcium 9.5 mg/dL (7.8-10.44); Carbon Dioxide 26 mmol/L (23-31); Chloride 102 mmol/L (98-107); Estimated GFR 47; Glucose 99 mg/dL (80-115); Potassium 4.2 mmol/L (3.5-5.1); Sodium 138 mmol/L (136-145)
[2021-12-16] MEDS: Aspirin Chewable 81 MG TAB PO SCH (08:24)
[2021-12-16] MEDS: Metoprolol Tartrate 25 MG TAB PO SCH ×2 (08:24→19:51)
[2021-12-16] MEDS: Multivitamin W/ Minerals 1 TAB PO SCH (08:24)
[2021-12-16] MEDS: Melatonin 3 MG TAB PO PRN (19:51)
[2021-12-16] MEDS: Atorvastatin Calcium 40 MG TAB PO SCH (19:52)
[2021-12-17 07:09] LABS: Anion Gap 14 mmol/L (10-20); BUN (Urea Nitrogen) 17 mg/dL (8.4-25.7); Calc. Creatinine Clearance 53 mL/min (70-130); Calcium 9.7 mg/dL (7.8-10.44); Carbon Dioxide 26 mmol/L (23-31); Chloride 102 mmol/L (98-107); Estimated GFR 47; Glucose 100 mg/dL (80-115); Potassium 4.3 mmol/L (3.5-5.1); Sodium 138 mmol/L (136-145)
[2021-12-17] MEDS: Aspirin Chewable 81 MG TAB PO SCH (07:52)
[2021-12-17] MEDS: Multivitamin W/ Minerals 1 TAB PO SCH (07:52)
[2021-12-17] MEDS: Metoprolol Tartrate 25 MG TAB PO SCH ×2 (07:52→20:30)
[2021-12-17] MEDS: Melatonin 3 MG TAB PO PRN (20:30)
[2021-12-17] MEDS: Atorvastatin Calcium 40 MG TAB PO SCH (20:30)
[2021-12-17] MEDS: Ondansetron PF 4 MG/2 ML Vial IVP PRN (23:34)
[2021-12-18] MEDS: Promethazine HCl 12.5 MG in Sodium Chloride 0.9% 50 ML IVPB PRN (02:30)
[2021-12-18 07:39] LABS: Anion Gap 14 mmol/L (10-20); BUN (Urea Nitrogen) 20 mg/dL (8.4-25.7); Calc. Creatinine Clearance 49 mL/min (70-130); Calcium 9.4 mg/dL (7.8-10.44); Carbon Dioxide 25 mmol/L (23-31); Chloride 104 mmol/L (98-107); Estimated GFR 43; Glucose 110 mg/dL (80-115); Potassium 4.7 mmol/L (3.5-5.1); Sodium 138 mmol/L (136-145)
[2021-12-18] MEDS: Metoprolol Tartrate 25 MG TAB PO SCH ×2 (08:11→19:21)
[2021-12-18] MEDS: Aspirin Chewable 81 MG TAB PO SCH (08:11)
[2021-12-18] MEDS: Multivitamin W/ Minerals 1 TAB PO SCH (08:11)
[2021-12-18] MEDS: Sodium Chloride 0.9% 1,000 ML IV SCH (08:50)
[2021-12-18] MEDS: Atorvastatin Calcium 40 MG TAB PO SCH (19:21)
[2021-12-19] MEDS: Sodium Chloride 0.9% 1,000 ML IV SCH ×2 (01:00→13:06)
[2021-12-19 06:37] LABS: Anion Gap 12 mmol/L (10-20); BUN (Urea Nitrogen) 15 mg/dL (8.4-25.7); Calc. Creatinine Clearance 54 mL/min (70-130); Calcium 9.1 mg/dL (7.8-10.44); Carbon Dioxide 24 mmol/L (23-31); Chloride 106 mmol/L (98-107); Estimated GFR 49; Glucose 104 mg/dL (80-115); Sodium 138 mmol/L (136-145)
[2021-12-19] MEDS: Multivitamin W/ Minerals 1 TAB PO SCH (09:50)
[2021-12-19] MEDS: Metoprolol Tartrate 25 MG TAB PO SCH ×2 (09:50→21:31)
[2021-12-19] MEDS: Aspirin Chewable 81 MG TAB PO SCH (09:51)
[2021-12-19] MEDS: Atorvastatin Calcium 40 MG TAB PO SCH (21:31)
[2021-12-20] MEDS: Metoprolol Tartrate 25 MG TAB PO SCH ×2 (09:24→20:31)
[2021-12-20] MEDS: Multivitamin W/ Minerals 1 TAB PO SCH (09:24)
[2021-12-20] MEDS: Aspirin Chewable 81 MG TAB PO SCH (09:24)
[2021-12-20] MEDS: Atorvastatin Calcium 40 MG TAB PO SCH (20:31)
[2021-12-21] MEDS: Metoprolol Tartrate 25 MG TAB PO SCH ×2 (09:12→20:47)
[2021-12-21] MEDS: Multivitamin W/ Minerals 1 TAB PO SCH (09:12)
[2021-12-21] MEDS: Aspirin Chewable 81 MG TAB PO SCH (09:13)
[2021-12-21] MEDS: Atorvastatin Calcium 40 MG TAB PO SCH (20:47)
[2021-12-22] MEDS: Multivitamin W/ Minerals 1 TAB PO SCH (08:41)
[2021-12-22] MEDS: Aspirin Chewable 81 MG TAB PO SCH (08:42)
[2021-12-22] MEDS: Metoprolol Tartrate 25 MG TAB PO SCH ×3 (08:42→21:07)
[2021-12-22 10:04] LABS: #Basophils 0.1 thou/uL (0.0-0.2); #Lymphocytes 1.3 thou/uL (1.20-3.40); %Basophils 0.8 % (0.0-1.0); %Eosinophils 0.6 % (0.0-10.0); %Lymphocytes 17.9 % (21.0-51.0); %Monocytes 13.5 % (0.0-10.0); %Neutrophils 67.2 % (42.0-75.0); Mean Corpuscular HGB CONC 30.6 g/dL (32.0-36.0); Mean Corpuscular Hemoglobin 24.1 pg (27.0-31.0); Mean Corpuscular Volume 78.7 fL (78.0-98.0); Mean Platelet Volume 8.3 fL (7.4-10.4); Platelet Count 371 thou/uL (130-400); RBC Distribution Width 19.1 % (11.5-14.5); Red Blood Cell (RBC) Count 3.33 mill/uL (4.70-6.10); White Blood Cell (WBC) Count 7.4 thou/uL (4.8-10.8)
[2021-12-22 10:25] LABS: Anion Gap 14 mmol/L (10-20); BUN (Urea Nitrogen) 12 mg/dL (8.4-25.7); Calc. Creatinine Clearance 58 mL/min (70-130); Calcium 9.4 mg/dL (7.8-10.44); Carbon Dioxide 24 mmol/L (23-31); Chloride 104 mmol/L (98-107); Estimated GFR 54; Glucose 103 mg/dL (80-115); Potassium 4.1 mmol/L (3.5-5.1); Sodium 138 mmol/L (136-145)
[2021-12-22] MEDS ORDERED: methylPREDNISolone Sod Succ 40 MG VIAL ONE (14:38)
[2021-12-22] MEDS: Atorvastatin Calcium 40 MG TAB PO SCH (21:07)
[2021-12-23] MEDS: Metoprolol Tartrate 25 MG TAB PO SCH ×2 (08:19→21:10)
[2021-12-23] MEDS: Aspirin Chewable 81 MG TAB PO SCH (08:20)
[2021-12-23] MEDS: Multivitamin W/ Minerals 1 TAB PO SCH (08:20)
[2021-12-23] MEDS: Ferrous Sulfate 325 MG TAB PO SCH (16:49)
[2021-12-23] MEDS: Atorvastatin Calcium 40 MG TAB PO SCH (21:10)
[2021-12-24] MEDS: Polyethylene Glycol 3350 17 GM Packet PO SCH (08:39)
[2021-12-24] MEDS: Aspirin Chewable 81 MG TAB PO SCH (08:39)
[2021-12-24] MEDS: Metoprolol Tartrate 25 MG TAB PO SCH ×2 (08:39→20:58)
[2021-12-24] MEDS: Ferrous Sulfate 325 MG TAB PO SCH ×2 (08:40→17:26)
[2021-12-24] MEDS: Multivitamin W/ Minerals 1 TAB PO SCH (08:40)
[2021-12-24] MEDS: Atorvastatin Calcium 40 MG TAB PO SCH (20:58)
[2021-12-24] MEDS: Heparin 5,000 UNITS/ML VIAL SC SCH (20:58)
[2021-12-25 06:13] LABS: #Basophils 0.1 thou/uL (0.0-0.2); #Eosinphils 0.1 thou/uL (0.0-0.7); #Lymphocytes 1.9 thou/uL (1.20-3.40); #Monocytes 0.8 thou/uL (0.11-0.59); #Neutrophils 3.6 thou/uL (1.40-6.50); %Basophils 1.2 % (0.0-1.0); %Eosinophils 0.9 % (0.0-10.0); %Lymphocytes 29.3 % (21.0-51.0); %Monocytes 12.2 % (0.0-10.0); %Neutrophils 56.4 % (42.0-75.0); Hemoglobin 8.1 g/dL (14.0-18.0); Mean Corpuscular Hemoglobin 24.4 pg (27.0-31.0); Mean Corpuscular Volume 78.7 fL (78.0-98.0); Mean Platelet Volume 8.2 fL (7.4-10.4); Platelet Count 362 thou/uL (130-400); Red Blood Cell (RBC) Count 3.34 mill/uL (4.70-6.10); White Blood Cell (WBC) Count 6.4 thou/uL (4.8-10.8)
[2021-12-25 06:31] LABS: Anion Gap 12 mmol/L (10-20); BUN (Urea Nitrogen) 10 mg/dL (8.4-25.7); Calc. Creatinine Clearance 58 mL/min (70-130); Calcium 9.5 mg/dL (7.8-10.44); Carbon Dioxide 26 mmol/L (23-31); Chloride 105 mmol/L (98-107); Estimated GFR 53; Glucose 95 mg/dL (80-115); Potassium 4.2 mmol/L (3.5-5.1); Sodium 139 mmol/L (136-145)
[2021-12-25] MEDS: Polyethylene Glycol 3350 17 GM Packet PO SCH (08:09)
[2021-12-25] MEDS: Multivitamin W/ Minerals 1 TAB PO SCH (08:10)
[2021-12-25] MEDS: Aspirin Chewable 81 MG TAB PO SCH (08:10)
[2021-12-25] MEDS: Metoprolol Tartrate 25 MG TAB PO SCH ×2 (08:10→20:29)
[2021-12-25] MEDS: Ferrous Sulfate 325 MG TAB PO SCH ×2 (08:10→17:43)
[2021-12-25] MEDS: Heparin 5,000 UNITS/ML VIAL SC SCH ×2 (08:11→20:29)
[2021-12-25] MEDS: Atorvastatin Calcium 40 MG TAB PO SCH (20:29)
[2021-12-26] MEDS: Ferrous Sulfate 325 MG TAB PO SCH ×2 (08:05→17:25)
[2021-12-26] MEDS: Polyethylene Glycol 3350 17 GM Packet PO SCH (08:05)
[2021-12-26] MEDS: Metoprolol Tartrate 25 MG TAB PO SCH ×2 (08:05→20:35)
[2021-12-26] MEDS: Aspirin Chewable 81 MG TAB PO SCH (08:05)
[2021-12-26] MEDS: Multivitamin W/ Minerals 1 TAB PO SCH (08:06)
[2021-12-26] MEDS: Heparin 5,000 UNITS/ML VIAL SC SCH ×2 (08:06→20:35)
[2021-12-26] MEDS: Atorvastatin Calcium 40 MG TAB PO SCH (20:35)
[2021-12-27 06:25] LABS: #Basophils 0.1 thou/uL (0.0-0.2); #Eosinphils 0.1 thou/uL (0.0-0.7); #Lymphocytes 1.8 thou/uL (1.20-3.40); #Monocytes 0.9 thou/uL (0.11-0.59); #Neutrophils 4.4 thou/uL (1.40-6.50); %Basophils 1.1 % (0.0-1.0); %Eosinophils 0.8 % (0.0-10.0); %Lymphocytes 24.2 % (21.0-51.0); %Monocytes 12.4 % (0.0-10.0); %Neutrophils 61.4 % (42.0-75.0); Hemoglobin 8.7 g/dL (14.0-18.0); Mean Corpuscular HGB CONC 30.5 g/dL (32.0-36.0); Mean Corpuscular Hemoglobin 23.9 pg (27.0-31.0); Mean Corpuscular Volume 78.3 fL (78.0-98.0); Mean Platelet Volume 8.1 fL (7.4-10.4); Platelet Count 405 thou/uL (130-400); RBC Distribution Width 18.9 % (11.5-14.5); Red Blood Cell (RBC) Count 3.63 mill/uL (4.70-6.10); White Blood Cell (WBC) Count 7.2 thou/uL (4.8-10.8)
[2021-12-27 06:59] LABS: Anion Gap 15 mmol/L (10-20); BUN (Urea Nitrogen) 13 mg/dL (8.4-25.7); Calc. Creatinine Clearance 52 mL/min (70-130); Carbon Dioxide 26 mmol/L (23-31); Chloride 105 mmol/L (98-107); Estimated GFR 47; Glucose 100 mg/dL (80-115); Potassium 4.5 mmol/L (3.5-5.1); Sodium 141 mmol/L (136-145)
[2021-12-27] MEDS: Polyethylene Glycol 3350 17 GM Packet PO SCH (07:57)
[2021-12-27] MEDS: Heparin 5,000 UNITS/ML VIAL SC SCH ×2 (07:58→22:49)
[2021-12-27] MEDS: Metoprolol Tartrate 25 MG TAB PO SCH ×2 (07:58→22:49)
[2021-12-27] MEDS: Multivitamin W/ Minerals 1 TAB PO SCH (07:58)
[2021-12-27] MEDS: Aspirin Chewable 81 MG TAB PO SCH (07:58)
[2021-12-27] MEDS: Ferrous Sulfate 325 MG TAB PO SCH ×2 (07:59→16:29)
[2021-12-27] MEDS: Sodium Chloride 0.9% 1,000 ML IV SCH ×2 (10:05→22:55)
[2021-12-27] MEDS: Atorvastatin Calcium 40 MG TAB PO SCH (22:49)
[2021-12-28] MEDS: Ferrous Sulfate 325 MG TAB PO SCH ×2 (07:33→17:04)
[2021-12-28] MEDS: Metoprolol Tartrate 25 MG TAB PO SCH ×2 (07:33→21:21)
[2021-12-28] MEDS: Multivitamin W/ Minerals 1 TAB PO SCH (07:33)
[2021-12-28] MEDS: Aspirin Chewable 81 MG TAB PO SCH (07:33)
[2021-12-28] MEDS: Polyethylene Glycol 3350 17 GM Packet PO SCH (07:33)
[2021-12-28] MEDS: Heparin 5,000 UNITS/ML VIAL SC SCH ×2 (07:34→21:20)
[2021-12-28 08:04] LABS: Anion Gap 13 mmol/L (10-20); BUN (Urea Nitrogen) 12 mg/dL (8.4-25.7); Calc. Creatinine Clearance 56 mL/min (70-130); Calcium 9.2 mg/dL (7.8-10.44); Carbon Dioxide 24 mmol/L (23-31); Chloride 107 mmol/L (98-107); Estimated GFR 51; Glucose 103 mg/dL (80-115); Potassium 4.2 mmol/L (3.5-5.1); Sodium 140 mmol/L (136-145)
[2021-12-28] MEDS: Sodium Chloride 0.9% 1,000 ML IV SCH (11:40)
[2021-12-28] MEDS: Atorvastatin Calcium 40 MG TAB PO SCH (21:20)
[2021-12-29] MEDS: Sodium Chloride 0.9% 1,000 ML IV SCH ×2 (00:44→14:05)
[2021-12-29] MEDS: Polyethylene Glycol 3350 17 GM Packet PO SCH (08:36)
[2021-12-29] MEDS: Multivitamin W/ Minerals 1 TAB PO SCH (08:36)
[2021-12-29] MEDS: Metoprolol Tartrate 25 MG TAB PO SCH ×2 (08:36→19:45)
[2021-12-29] MEDS: Aspirin Chewable 81 MG TAB PO SCH (08:36)
[2021-12-29] MEDS: Ferrous Sulfate 325 MG TAB PO SCH ×2 (08:36→16:55)
[2021-12-29] MEDS: Heparin 5,000 UNITS/ML VIAL SC SCH ×2 (08:37→19:45)
[2021-12-29] MEDS: Ondansetron PF 4 MG/2 ML Vial IVP PRN (19:45)
[2021-12-29] MEDS: Atorvastatin Calcium 40 MG TAB PO SCH (19:45)
[2021-12-29] MEDS: Acetaminophen 325 MG TAB PO PRN (19:45)
[2021-12-30] MEDS: Sodium Chloride 0.9% 1,000 ML IV SCH (03:13)
[2021-12-30 06:11] LABS: #Lymphocytes 1.9 thou/uL (1.20-3.40); #Monocytes 1.1 thou/uL (0.11-0.59); #Neutrophils 4.3 thou/uL (1.40-6.50); %Basophils 0.6 % (0.0-1.0); %Eosinophils 0.5 % (0.0-10.0); %Lymphocytes 25.8 % (21.0-51.0); %Monocytes 14.7 % (0.0-10.0); %Neutrophils 58.4 % (42.0-75.0); Hemoglobin 7.9 g/dL (14.0-18.0); Mean Corpuscular HGB CONC 30.9 g/dL (32.0-36.0); Mean Corpuscular Hemoglobin 23.8 pg (27.0-31.0); Mean Platelet Volume 8.3 fL (7.4-10.4); Platelet Count 389 thou/uL (130-400); RBC Distribution Width 19.4 % (11.5-14.5); White Blood Cell (WBC) Count 7.3 thou/uL (4.8-10.8)
[2021-12-30 06:33] LABS: Anion Gap 12 mmol/L (10-20); BUN (Urea Nitrogen) 12 mg/dL (8.4-25.7); Calc. Creatinine Clearance 59 mL/min (70-130); Calcium 8.9 mg/dL (7.8-10.44); Carbon Dioxide 24 mmol/L (23-31); Chloride 110 mmol/L (98-107); Estimated GFR 55; Glucose 92 mg/dL (80-115); Magnesium 2.1 mg/dL (1.6-2.6); Potassium 3.8 mmol/L (3.5-5.1); Sodium 142 mmol/L (136-145)
[2021-12-30] MEDS: Heparin 5,000 UNITS/ML VIAL SC SCH ×2 (08:38→20:38)
[2021-12-30] MEDS: Aspirin Chewable 81 MG TAB PO SCH (08:38)
[2021-12-30] MEDS: Metoprolol Tartrate 25 MG TAB PO SCH ×2 (08:38→20:38)
[2021-12-30] MEDS: Polyethylene Glycol 3350 17 GM Packet PO SCH (08:39)
[2021-12-30] MEDS: Multivitamin W/ Minerals 1 TAB PO SCH (08:39)
[2021-12-30] MEDS: Ferrous Sulfate 325 MG TAB PO SCH ×2 (08:39→17:15)
[2021-12-30] MEDS: Atorvastatin Calcium 40 MG TAB PO SCH (20:38)
[2021-12-31] MEDS: Multivitamin W/ Minerals 1 TAB PO SCH (09:02)
[2021-12-31] MEDS: Heparin 5,000 UNITS/ML VIAL SC SCH ×2 (09:02→20:47)
[2021-12-31] MEDS: Metoprolol Tartrate 25 MG TAB PO SCH ×2 (09:02→20:47)
[2021-12-31] MEDS: Aspirin Chewable 81 MG TAB PO SCH (09:02)
[2021-12-31] MEDS: Ferrous Sulfate 325 MG TAB PO SCH ×2 (09:02→16:50)
[2021-12-31] MEDS: Polyethylene Glycol 3350 17 GM Packet PO SCH (09:03)
[2021-12-31] MEDS: Atorvastatin Calcium 40 MG TAB PO SCH (20:47)
[2022-01-01] MEDS: Aspirin Chewable 81 MG TAB PO SCH (08:30)
[2022-01-01] MEDS: Metoprolol Tartrate 25 MG TAB PO SCH ×2 (08:30→19:23)
[2022-01-01] MEDS: Multivitamin W/ Minerals 1 TAB PO SCH (08:30)
[2022-01-01] MEDS: Ferrous Sulfate 325 MG TAB PO SCH ×2 (08:31→17:20)
[2022-01-01] MEDS: Polyethylene Glycol 3350 17 GM Packet PO SCH (08:31)
[2022-01-01] MEDS: Heparin 5,000 UNITS/ML VIAL SC SCH ×2 (08:31→19:24)
[2022-01-01] MEDS: Atorvastatin Calcium 40 MG TAB PO SCH (19:23)
[2022-01-02] MEDS: Metoprolol Tartrate 25 MG TAB PO SCH ×2 (08:45→21:21)
[2022-01-02] MEDS: Heparin 5,000 UNITS/ML VIAL SC SCH ×2 (08:46→21:21)
[2022-01-02] MEDS: Polyethylene Glycol 3350 17 GM Packet PO SCH (08:46)
[2022-01-02] MEDS: Ferrous Sulfate 325 MG TAB PO SCH ×2 (08:46→17:30)
[2022-01-02] MEDS: Aspirin Chewable 81 MG TAB PO SCH (08:46)
[2022-01-02] MEDS: Multivitamin W/ Minerals 1 TAB PO SCH (08:46)
[2022-01-02] MEDS: Atorvastatin Calcium 40 MG TAB PO SCH (21:21)
[2022-01-03] MEDS: Ferrous Sulfate 325 MG TAB PO SCH ×2 (08:32→17:01)
[2022-01-03] MEDS: Aspirin Chewable 81 MG TAB PO SCH (08:33)
[2022-01-03] MEDS: Heparin 5,000 UNITS/ML VIAL SC SCH ×2 (08:33→21:42)
[2022-01-03] MEDS: Metoprolol Tartrate 25 MG TAB PO SCH ×2 (08:33→21:41)
[2022-01-03] MEDS: Multivitamin W/ Minerals 1 TAB PO SCH (08:34)
[2022-01-03] MEDS: Polyethylene Glycol 3350 17 GM Packet PO SCH (08:35)
[2022-01-03] MEDS: Atorvastatin Calcium 40 MG TAB PO SCH (21:42)
[2022-01-04] MEDS: Aspirin Chewable 81 MG TAB PO SCH (08:40)
[2022-01-04] MEDS: Multivitamin W/ Minerals 1 TAB PO SCH (08:40)
[2022-01-04] MEDS: Ferrous Sulfate 325 MG TAB PO SCH ×2 (08:40→17:35)
[2022-01-04] MEDS: Heparin 5,000 UNITS/ML VIAL SC SCH ×2 (08:40→20:54)
[2022-01-04] MEDS: Metoprolol Tartrate 25 MG TAB PO SCH ×2 (08:40→20:54)
[2022-01-04] MEDS: Polyethylene Glycol 3350 17 GM Packet PO SCH (08:41)
[2022-01-04] MEDS: Atorvastatin Calcium 40 MG TAB PO SCH (20:54)
[2022-01-05] MEDS: Ondansetron PF 4 MG/2 ML Vial IVP PRN (02:51)
[2022-01-05] MEDS: Polyethylene Glycol 3350 17 GM Packet PO SCH (08:55)
[2022-01-05] MEDS: Aspirin Chewable 81 MG TAB PO SCH (08:55)
[2022-01-05] MEDS: Ferrous Sulfate 325 MG TAB PO SCH ×2 (08:55→16:30)
[2022-01-05] MEDS: Metoprolol Tartrate 25 MG TAB PO SCH ×2 (08:56→20:37)
[2022-01-05] MEDS: Multivitamin W/ Minerals 1 TAB PO SCH (08:56)
[2022-01-05] MEDS: Heparin 5,000 UNITS/ML VIAL SC SCH ×2 (08:56→20:39)
[2022-01-05 12:35] LABS: #Basophils 0.1 thou/uL (0.0-0.2); #Lymphocytes 1.9 thou/uL (1.20-3.40); #Monocytes 1.1 thou/uL (0.11-0.59); #Neutrophils 6.7 thou/uL (1.40-6.50); %Basophils 0.7 % (0.0-1.0); %Eosinophils 0.3 % (0.0-10.0); %Lymphocytes 19.7 % (21.0-51.0); %Monocytes 11.2 % (0.0-10.0); %Neutrophils 68.1 % (42.0-75.0); Hemoglobin 9.5 g/dL (14.0-18.0); Mean Corpuscular HGB CONC 30.6 g/dL (32.0-36.0); Mean Corpuscular Volume 78.5 fL (78.0-98.0); Mean Platelet Volume 8.8 fL (7.4-10.4); Platelet Count 353 thou/uL (130-400); RBC Distribution Width 19.5 % (11.5-14.5); Red Blood Cell (RBC) Count 3.95 mill/uL (4.70-6.10); White Blood Cell (WBC) Count 9.8 thou/uL (4.8-10.8)
[2022-01-05] MEDS ORDERED: Lidocaine 2% Viscous Solution 20 ML, Aluminum & Magnesium Hydroxide 30 ML, Donnatal Eli... SSW SCH (12:45)
[2022-01-05 13:00] LABS: ALT (SGPT) 61 U/L (8-55); AST (SGOT) 36 U/L (5-34); Albumin 3.7 g/dL (3.4-4.8); Alkaline Phosphatase 89 U/L (40-110); Anion Gap 14 mmol/L (10-20); BUN (Urea Nitrogen) 14 mg/dL (8.4-25.7); Bilirubin, Total 0.5 mg/dL (0.2-1.2); Calc. Creatinine Clearance 58 mL/min (70-130); Calcium 9.2 mg/dL (7.8-10.44); Carbon Dioxide 22 mmol/L (23-31); Chloride 109 mmol/L (98-107); Estimated GFR 53; Globulin 3.5 g/dL (2.4-3.5); Glucose 118 mg/dL (80-115); Lipase 116 U/L (8-78); Potassium 4.1 mmol/L (3.5-5.1); Protein, Total 7.2 g/dL (5.8-8.1); Sodium 141 mmol/L (136-145)
[2022-01-05] MEDS: Lactated Ringer's 1,000 ML IV SCH (14:52)
[2022-01-05] MEDS: Atorvastatin Calcium 40 MG TAB PO SCH (20:37)
[2022-01-05] MEDS: Acetaminophen 325 MG TAB PO PRN (20:54)
[2022-01-06] MEDS: Lactated Ringer's 1,000 ML IV SCH ×2 (02:46→12:40)
[2022-01-06] MEDS: Acetaminophen 325 MG TAB PO PRN (03:05)
[2022-01-06 06:45] LABS: #Basophils 0.1 thou/uL (0.0-0.2); #Lymphocytes 2.6 thou/uL (1.20-3.40); #Monocytes 1.4 thou/uL (0.11-0.59); #Neutrophils 7.8 thou/uL (1.40-6.50); %Basophils 0.4 % (0.0-1.0); %Eosinophils 0.4 % (0.0-10.0); %Lymphocytes 21.7 % (21.0-51.0); %Monocytes 11.9 % (0.0-10.0); %Neutrophils 65.6 % (42.0-75.0); Hemoglobin 8.4 g/dL (14.0-18.0); Mean Corpuscular HGB CONC 30.2 g/dL (32.0-36.0); Mean Corpuscular Hemoglobin 23.6 pg (27.0-31.0); Mean Corpuscular Volume 78.2 fL (78.0-98.0); Mean Platelet Volume 9.1 fL (7.4-10.4); Platelet Count 360 thou/uL (130-400); RBC Distribution Width 19.9 % (11.5-14.5); Red Blood Cell (RBC) Count 3.56 mill/uL (4.70-6.10); White Blood Cell (WBC) Count 11.8 thou/uL (4.8-10.8)
[2022-01-06 07:09] LABS: ALT (SGPT) 48 U/L (8-55); AST (SGOT) 30 U/L (5-34); Albumin 3.4 g/dL (3.4-4.8); Alkaline Phosphatase 81 U/L (40-110); Anion Gap 12 mmol/L (10-20); BUN (Urea Nitrogen) 18 mg/dL (8.4-25.7); Bilirubin, Total 0.6 mg/dL (0.2-1.2); Calc. Creatinine Clearance 65 mL/min (70-130); Carbon Dioxide 24 mmol/L (23-31); Chloride 106 mmol/L (98-107); Estimated GFR 61; Globulin 3.3 g/dL (2.4-3.5); Glucose 94 mg/dL (80-115); Lipase 74 U/L (8-78); Potassium 3.9 mmol/L (3.5-5.1); Protein, Total 6.7 g/dL (5.8-8.1); Sodium 138 mmol/L (136-145)
[2022-01-06] MEDS: Aspirin Chewable 81 MG TAB PO SCH (10:00)
[2022-01-06] MEDS: Metoprolol Tartrate 25 MG TAB PO SCH ×2 (10:01→20:12)
[2022-01-06] MEDS: Ferrous Sulfate 325 MG TAB PO SCH ×2 (10:02→17:55)
[2022-01-06] MEDS: Multivitamin W/ Minerals 1 TAB PO SCH (10:02)
[2022-01-06] MEDS: Heparin 5,000 UNITS/ML VIAL SC SCH ×2 (10:03→20:11)
[2022-01-06] MEDS: Polyethylene Glycol 3350 17 GM Packet PO SCH (10:03)
[2022-01-06] MEDS: Atorvastatin Calcium 40 MG TAB PO SCH (20:11)
[2022-01-06] MEDS: Melatonin 3 MG TAB PO PRN (20:13)
[2022-01-07 06:38] LABS: ALT (SGPT) 45 U/L (8-55); AST (SGOT) 31 U/L (5-34); Albumin 3.4 g/dL (3.4-4.8); Alkaline Phosphatase 77 U/L (40-110); Anion Gap 13 mmol/L (10-20); BUN (Urea Nitrogen) 13 mg/dL (8.4-25.7); Bilirubin, Total 0.7 mg/dL (0.2-1.2); Calc. Creatinine Clearance 64 mL/min (70-130); Calcium 9.1 mg/dL (7.8-10.44); Carbon Dioxide 24 mmol/L (23-31); Chloride 108 mmol/L (98-107); Estimated GFR 60; Globulin 3.1 g/dL (2.4-3.5); Glucose 91 mg/dL (80-115); Protein, Total 6.5 g/dL (5.8-8.1); Sodium 141 mmol/L (136-145)
[2022-01-07 06:47] LABS: Hemoglobin 8.3 g/dL (14.0-18.0); Hypochromia SLIGHT = 6-15 cells (100X) (0-5/hpf); Lymphocytes 32 % (21-51); MDiff Complete? YES; Mean Corpuscular HGB CONC 30.4 g/dL (32.0-36.0); Mean Corpuscular Hemoglobin 23.8 pg (27.0-31.0); Mean Corpuscular Volume 78.2 fL (78.0-98.0); Mean Platelet Volume 9.1 fL (7.4-10.4); Monocytes 4 % (0-10); Neutrophil 63 % (42-75); Platelet Count 319 thou/uL (130-400); Platelet Morphology Comment Appears Adequate; RBC Distribution Width 19.4 % (11.5-14.5); Reactive Lymphocytes 1 % (0-10); White Blood Cell (WBC) Count 8.3 thou/uL (4.8-10.8)
[2022-01-07] MEDS: Heparin 5,000 UNITS/ML VIAL SC SCH ×2 (08:55→20:09)
[2022-01-07] MEDS: Ferrous Sulfate 325 MG TAB PO SCH ×2 (08:55→18:01)
[2022-01-07] MEDS: Metoprolol Tartrate 25 MG TAB PO SCH ×2 (08:55→20:09)
[2022-01-07] MEDS: Aspirin Chewable 81 MG TAB PO SCH (08:55)
[2022-01-07] MEDS: Polyethylene Glycol 3350 17 GM Packet PO SCH (08:55)
[2022-01-07] MEDS: Multivitamin W/ Minerals 1 TAB PO SCH (08:55)
[2022-01-07] MEDS: Atorvastatin Calcium 40 MG TAB PO SCH (20:09)
[2022-01-08 05:50] LABS: #Basophils 0.1 thou/uL (0.0-0.2); #Eosinphils 0.1 thou/uL (0.0-0.7); #Lymphocytes 1.9 thou/uL (1.20-3.40); #Monocytes 1.1 thou/uL (0.11-0.59); %Eosinophils 0.7 % (0.0-10.0); %Lymphocytes 23.9 % (21.0-51.0); %Monocytes 13.1 % (0.0-10.0); %Neutrophils 61.3 % (42.0-75.0); Hemoglobin 8.7 g/dL (14.0-18.0); Mean Corpuscular HGB CONC 30.6 g/dL (32.0-36.0); Mean Corpuscular Hemoglobin 23.8 pg (27.0-31.0); Mean Platelet Volume 8.8 fL (7.4-10.4); Platelet Count 341 thou/uL (130-400); RBC Distribution Width 19.8 % (11.5-14.5); Red Blood Cell (RBC) Count 3.66 mill/uL (4.70-6.10); White Blood Cell (WBC) Count 8.1 thou/uL (4.8-10.8)
[2022-01-08 06:20] LABS: ALT (SGPT) 53 U/L (8-55); AST (SGOT) 37 U/L (5-34); Albumin 3.6 g/dL (3.4-4.8); Alkaline Phosphatase 80 U/L (40-110); Anion Gap 15 mmol/L (10-20); BUN (Urea Nitrogen) 14 mg/dL (8.4-25.7); Bilirubin, Total 0.7 mg/dL (0.2-1.2); Calc. Creatinine Clearance 58 mL/min (70-130); Calcium 9.4 mg/dL (7.8-10.44); Carbon Dioxide 23 mmol/L (23-31); Chloride 107 mmol/L (98-107); Estimated GFR 53; Globulin 3.5 g/dL (2.4-3.5); Glucose 100 mg/dL (80-115); Potassium 4.3 mmol/L (3.5-5.1); Protein, Total 7.1 g/dL (5.8-8.1); Sodium 141 mmol/L (136-145)
[2022-01-08] MEDS: Metoprolol Tartrate 25 MG TAB PO SCH ×2 (09:33→21:07)
[2022-01-08] MEDS: Polyethylene Glycol 3350 17 GM Packet PO SCH (09:33)
[2022-01-08] MEDS: Aspirin Chewable 81 MG TAB PO SCH (09:33)
[2022-01-08] MEDS: Ferrous Sulfate 325 MG TAB PO SCH ×2 (09:33→18:40)
[2022-01-08] MEDS: Heparin 5,000 UNITS/ML VIAL SC SCH ×2 (09:33→21:07)
[2022-01-08] MEDS: Multivitamin W/ Minerals 1 TAB PO SCH (09:33)
[2022-01-08] MEDS: Atorvastatin Calcium 40 MG TAB PO SCH (21:07)
[2022-01-09 05:51] LABS: #Eosinphils 0.1 thou/uL (0.0-0.7); #Neutrophils 5.1 thou/uL (1.40-6.50); %Basophils 0.4 % (0.0-1.0); %Eosinophils 0.8 % (0.0-10.0); %Lymphocytes 23.9 % (21.0-51.0); %Monocytes 11.9 % (0.0-10.0); Hemoglobin 9.4 g/dL (14.0-18.0); Mean Corpuscular HGB CONC 29.8 g/dL (32.0-36.0); Mean Corpuscular Hemoglobin 23.4 pg (27.0-31.0); Mean Corpuscular Volume 78.5 fL (78.0-98.0); Mean Platelet Volume 9.4 fL (7.4-10.4); Platelet Count 354 thou/uL (130-400); RBC Distribution Width 19.9 % (11.5-14.5); Red Blood Cell (RBC) Count 4.04 mill/uL (4.70-6.10); White Blood Cell (WBC) Count 8.2 thou/uL (4.8-10.8)
[2022-01-09 06:18] LABS: ALT (SGPT) 51 U/L (8-55); AST (SGOT) 32 U/L (5-34); Albumin 3.9 g/dL (3.4-4.8); Alkaline Phosphatase 89 U/L (40-110); Anion Gap 14 mmol/L (10-20); BUN (Urea Nitrogen) 17 mg/dL (8.4-25.7); Bilirubin, Total 0.7 mg/dL (0.2-1.2); Calc. Creatinine Clearance 59 mL/min (70-130); Calcium 9.7 mg/dL (7.8-10.44); Carbon Dioxide 25 mmol/L (23-31); Chloride 106 mmol/L (98-107); Estimated GFR 54; Globulin 3.8 g/dL (2.4-3.5); Glucose 99 mg/dL (80-115); Potassium 3.9 mmol/L (3.5-5.1); Protein, Total 7.7 g/dL (5.8-8.1); Sodium 141 mmol/L (136-145)
[2022-01-09] MEDS: Polyethylene Glycol 3350 17 GM Packet PO SCH (08:24)
[2022-01-09] MEDS: Multivitamin W/ Minerals 1 TAB PO SCH (08:25)
[2022-01-09] MEDS: Ferrous Sulfate 325 MG TAB PO SCH ×2 (08:25→16:28)
[2022-01-09] MEDS: Heparin 5,000 UNITS/ML VIAL SC SCH ×2 (08:25→20:29)
[2022-01-09] MEDS: Metoprolol Tartrate 25 MG TAB PO SCH ×2 (08:25→20:28)
[2022-01-09] MEDS: Aspirin Chewable 81 MG TAB PO SCH (08:25)
[2022-01-09] MEDS: Atorvastatin Calcium 40 MG TAB PO SCH (20:28)
[2022-01-10] MEDS: Aspirin Chewable 81 MG TAB PO SCH (08:15)
[2022-01-10] MEDS: Metoprolol Tartrate 25 MG TAB PO SCH ×2 (08:16→20:26)
[2022-01-10] MEDS: Multivitamin W/ Minerals 1 TAB PO SCH (08:16)
[2022-01-10] MEDS: Heparin 5,000 UNITS/ML VIAL SC SCH ×2 (08:16→20:26)
[2022-01-10] MEDS: Ferrous Sulfate 325 MG TAB PO SCH ×2 (08:16→17:00)
[2022-01-10] MEDS: Polyethylene Glycol 3350 17 GM Packet PO SCH (08:17)
[2022-01-10] MEDS: Atorvastatin Calcium 40 MG TAB PO SCH (20:26)
[2022-01-11] MEDS: Heparin 5,000 UNITS/ML VIAL SC SCH ×2 (08:56→20:56)
[2022-01-11] MEDS: Metoprolol Tartrate 25 MG TAB PO SCH ×2 (08:56→20:55)
[2022-01-11] MEDS: Aspirin Chewable 81 MG TAB PO SCH (08:56)
[2022-01-11] MEDS: Polyethylene Glycol 3350 17 GM Packet PO SCH (08:57)
[2022-01-11] MEDS: Multivitamin W/ Minerals 1 TAB PO SCH (08:57)
[2022-01-11] MEDS: Ferrous Sulfate 325 MG TAB PO SCH ×2 (08:57→17:05)
[2022-01-11] MEDS: Atorvastatin Calcium 40 MG TAB PO SCH (20:55)
[2022-01-12] MEDS: Metoprolol Tartrate 25 MG TAB PO SCH ×2 (08:35→21:08)
[2022-01-12] MEDS: Heparin 5,000 UNITS/ML VIAL SC SCH ×2 (08:36→21:09)
[2022-01-12] MEDS: Aspirin Chewable 81 MG TAB PO SCH (08:36)
[2022-01-12] MEDS: Ferrous Sulfate 325 MG TAB PO SCH ×2 (08:36→17:03)
[2022-01-12] MEDS: Multivitamin W/ Minerals 1 TAB PO SCH (08:36)
[2022-01-12] MEDS: Polyethylene Glycol 3350 17 GM Packet PO SCH (08:37)
[2022-01-12] MEDS: Atorvastatin Calcium 40 MG TAB PO SCH (21:08)
[2022-01-13] MEDS: Metoprolol Tartrate 25 MG TAB PO SCH ×2 (08:07→20:23)
[2022-01-13] MEDS: Multivitamin W/ Minerals 1 TAB PO SCH (08:07)
[2022-01-13] MEDS: Heparin 5,000 UNITS/ML VIAL SC SCH ×2 (08:07→20:23)
[2022-01-13] MEDS: Polyethylene Glycol 3350 17 GM Packet PO SCH (08:07)
[2022-01-13] MEDS: Aspirin Chewable 81 MG TAB PO SCH (08:08)
[2022-01-13] MEDS: Ferrous Sulfate 325 MG TAB PO SCH ×2 (08:08→16:46)
[2022-01-13] MEDS: Atorvastatin Calcium 40 MG TAB PO SCH (20:23)
[2022-01-14] MEDS: Heparin 5,000 UNITS/ML VIAL SC SCH ×2 (09:21→20:57)
[2022-01-14] MEDS: Multivitamin W/ Minerals 1 TAB PO SCH (09:21)
[2022-01-14] MEDS: Aspirin Chewable 81 MG TAB PO SCH (09:21)
[2022-01-14] MEDS: Metoprolol Tartrate 25 MG TAB PO SCH ×2 (09:21→20:55)
[2022-01-14] MEDS: Ferrous Sulfate 325 MG TAB PO SCH ×2 (09:21→18:46)
[2022-01-14] MEDS: Polyethylene Glycol 3350 17 GM Packet PO SCH (09:22)
[2022-01-14] MEDS: Atorvastatin Calcium 40 MG TAB PO SCH (20:55)
[2022-01-15] MEDS: Aspirin Chewable 81 MG TAB PO SCH (08:27)
[2022-01-15] MEDS: Heparin 5,000 UNITS/ML VIAL SC SCH ×2 (08:27→20:37)
[2022-01-15] MEDS: Ferrous Sulfate 325 MG TAB PO SCH ×2 (08:27→17:38)
[2022-01-15] MEDS: Multivitamin W/ Minerals 1 TAB PO SCH (08:27)
[2022-01-15] MEDS: Metoprolol Tartrate 25 MG TAB PO SCH ×2 (08:28→20:37)
[2022-01-15] MEDS: Polyethylene Glycol 3350 17 GM Packet PO SCH (08:34)
[2022-01-15] MEDS: Atorvastatin Calcium 40 MG TAB PO SCH (20:37)
[2022-01-16] MEDS: Metoprolol Tartrate 25 MG TAB PO SCH ×2 (09:18→20:22)
[2022-01-16] MEDS: Aspirin Chewable 81 MG TAB PO SCH (09:18)
[2022-01-16] MEDS: Multivitamin W/ Minerals 1 TAB PO SCH (09:19)
[2022-01-16] MEDS: Ferrous Sulfate 325 MG TAB PO SCH ×2 (09:19→17:53)
[2022-01-16] MEDS: Polyethylene Glycol 3350 17 GM Packet PO SCH (09:19)
[2022-01-16] MEDS: Heparin 5,000 UNITS/ML VIAL SC SCH ×2 (09:19→20:22)
[2022-01-16] MEDS: Atorvastatin Calcium 40 MG TAB PO SCH (20:22)
[2022-01-17] MEDS: Multivitamin W/ Minerals 1 TAB PO SCH (09:10)
[2022-01-17] MEDS: Ferrous Sulfate 325 MG TAB PO SCH ×2 (09:10→17:57)
[2022-01-17] MEDS: Heparin 5,000 UNITS/ML VIAL SC SCH ×2 (09:10→20:55)
[2022-01-17] MEDS: Metoprolol Tartrate 25 MG TAB PO SCH ×2 (09:10→20:16)
[2022-01-17] MEDS: Aspirin Chewable 81 MG TAB PO SCH (09:10)
[2022-01-17] MEDS: Polyethylene Glycol 3350 17 GM Packet PO SCH (09:18)
[2022-01-17] MEDS: Atorvastatin Calcium 40 MG TAB PO SCH (20:16)
[2022-01-18] MEDS: Polyethylene Glycol 3350 17 GM Packet PO SCH (08:06)
[2022-01-18] MEDS: Ferrous Sulfate 325 MG TAB PO SCH ×2 (08:08→17:12)
[2022-01-18] MEDS: Metoprolol Tartrate 25 MG TAB PO SCH ×2 (08:08→20:00)
[2022-01-18] MEDS: Multivitamin W/ Minerals 1 TAB PO SCH (08:08)
[2022-01-18] MEDS: Aspirin Chewable 81 MG TAB PO SCH (08:08)
[2022-01-18] MEDS: Heparin 5,000 UNITS/ML VIAL SC SCH ×2 (08:10→20:00)
[2022-01-18] MEDS: Atorvastatin Calcium 40 MG TAB PO SCH (20:00)
[2022-01-19] MEDS: Metoprolol Tartrate 25 MG TAB PO SCH ×2 (08:08→20:01)
[2022-01-19] MEDS: Multivitamin W/ Minerals 1 TAB PO SCH (08:08)
[2022-01-19] MEDS: Ferrous Sulfate 325 MG TAB PO SCH ×2 (08:08→17:05)
[2022-01-19] MEDS: Aspirin Chewable 81 MG TAB PO SCH (08:09)
[2022-01-19] MEDS: Heparin 5,000 UNITS/ML VIAL SC SCH ×2 (08:09→20:01)
[2022-01-19] MEDS: Polyethylene Glycol 3350 17 GM Packet PO SCH (08:09)
[2022-01-19] MEDS: Atorvastatin Calcium 40 MG TAB PO SCH (20:00)
[2022-01-20] MEDS: Polyethylene Glycol 3350 17 GM Packet PO SCH (09:06)
[2022-01-20] MEDS: Multivitamin W/ Minerals 1 TAB PO SCH (09:06)
[2022-01-20] MEDS: Aspirin Chewable 81 MG TAB PO SCH (09:06)
[2022-01-20] MEDS: Metoprolol Tartrate 25 MG TAB PO SCH ×2 (09:06→20:14)
[2022-01-20] MEDS: Ferrous Sulfate 325 MG TAB PO SCH ×2 (09:06→18:11)
[2022-01-20] MEDS: Heparin 5,000 UNITS/ML VIAL SC SCH ×2 (09:06→20:15)
[2022-01-20] MEDS: Atorvastatin Calcium 40 MG TAB PO SCH (20:14)
[2022-01-21] MEDS: Heparin 5,000 UNITS/ML VIAL SC SCH ×2 (08:09→19:50)
[2022-01-21] MEDS: Aspirin Chewable 81 MG TAB PO SCH (08:09)
[2022-01-21] MEDS: Metoprolol Tartrate 25 MG TAB PO SCH ×2 (08:09→19:50)
[2022-01-21] MEDS: Multivitamin W/ Minerals 1 TAB PO SCH (08:09)
[2022-01-21] MEDS: Ferrous Sulfate 325 MG TAB PO SCH ×2 (08:09→16:47)
[2022-01-21] MEDS: Polyethylene Glycol 3350 17 GM Packet PO SCH (08:09)
[2022-01-21] MEDS: Atorvastatin Calcium 40 MG TAB PO SCH (19:50)
[2022-01-22 06:55] LABS: #Basophils 0.1 thou/uL (0.0-0.2); #Eosinphils 0.1 thou/uL (0.0-0.7); #Lymphocytes 2.4 thou/uL (1.20-3.40); #Monocytes 1.2 thou/uL (0.11-0.59); #Neutrophils 4.6 thou/uL (1.40-6.50); %Basophils 0.7 % (0.0-1.0); %Eosinophils 0.8 % (0.0-10.0); %Lymphocytes 29.1 % (21.0-51.0); %Monocytes 13.9 % (0.0-10.0); %Neutrophils 55.5 % (42.0-75.0); Hemoglobin 10.7 g/dL (14.0-18.0); Mean Corpuscular HGB CONC 30.7 g/dL (32.0-36.0); Mean Corpuscular Hemoglobin 24.5 pg (27.0-31.0); Mean Corpuscular Volume 79.8 fL (78.0-98.0); Mean Platelet Volume 10.1 fL (7.4-10.4); Platelet Count 286 thou/uL (130-400); RBC Distribution Width 20.6 % (11.5-14.5); Red Blood Cell (RBC) Count 4.38 mill/uL (4.70-6.10); White Blood Cell (WBC) Count 8.3 thou/uL (4.8-10.8)
[2022-01-22 07:23] LABS: ALT (SGPT) 46 U/L (8-55); AST (SGOT) 29 U/L (5-34); Alkaline Phosphatase 90 U/L (40-110); Anion Gap 15 mmol/L (10-20); BUN (Urea Nitrogen) 17 mg/dL (8.4-25.7); Bilirubin, Total 0.7 mg/dL (0.2-1.2); Calc. Creatinine Clearance 59 mL/min (70-130); Calcium 9.5 mg/dL (7.8-10.44); Carbon Dioxide 24 mmol/L (23-31); Chloride 106 mmol/L (98-107); Estimated GFR 54; Globulin 3.7 g/dL (2.4-3.5); Glucose 96 mg/dL (80-115); Potassium 4.1 mmol/L (3.5-5.1); Protein, Total 7.7 g/dL (5.8-8.1); Sodium 141 mmol/L (136-145)
[2022-01-22] MEDS: Acetaminophen 325 MG TAB PO PRN (08:40)
[2022-01-22] MEDS: Ferrous Sulfate 325 MG TAB PO SCH ×2 (08:41→16:37)
[2022-01-22] MEDS: Multivitamin W/ Minerals 1 TAB PO SCH (08:41)
[2022-01-22] MEDS: Metoprolol Tartrate 25 MG TAB PO SCH ×2 (08:41→20:15)
[2022-01-22] MEDS: Heparin 5,000 UNITS/ML VIAL SC SCH ×2 (08:42→20:15)
[2022-01-22] MEDS: Aspirin Chewable 81 MG TAB PO SCH (08:42)
[2022-01-22] MEDS: Polyethylene Glycol 3350 17 GM Packet PO SCH (08:56)
[2022-01-22] MEDS: Atorvastatin Calcium 40 MG TAB PO SCH (20:15)
[2022-01-23] MEDS: Metoprolol Tartrate 25 MG TAB PO SCH ×2 (08:21→20:42)
[2022-01-23] MEDS: Multivitamin W/ Minerals 1 TAB PO SCH (08:22)
[2022-01-23] MEDS: Ferrous Sulfate 325 MG TAB PO SCH ×2 (08:22→16:53)
[2022-01-23] MEDS: Heparin 5,000 UNITS/ML VIAL SC SCH (08:22)
[2022-01-23] MEDS: Aspirin Chewable 81 MG TAB PO SCH (08:22)
[2022-01-23] MEDS: Polyethylene Glycol 3350 17 GM Packet PO SCH (08:23)
[2022-01-23] MEDS: Acetaminophen 325 MG TAB PO PRN ×2 (09:57→18:18)
[2022-01-23] MEDS: Atorvastatin Calcium 40 MG TAB PO SCH (20:42)
[2022-01-23] MEDS: Enoxaparin Sodium 40 MG/0.4 ML SYRINGE SC SCH (20:42)
[2022-01-23] MEDS: Lidocaine 5% Patch TD SCH (20:43)
[2022-01-24] MEDS: Multivitamin W/ Minerals 1 TAB PO SCH (07:41)
[2022-01-24] MEDS: Metoprolol Tartrate 25 MG TAB PO SCH ×2 (07:41→19:59)
[2022-01-24] MEDS: Polyethylene Glycol 3350 17 GM Packet PO SCH (07:41)
[2022-01-24] MEDS: Aspirin Chewable 81 MG TAB PO SCH (07:41)
[2022-01-24] MEDS: Ferrous Sulfate 325 MG TAB PO SCH ×2 (07:41→17:41)
[2022-01-24] MEDS: Transdermal Patch Removal TOP SCH (07:41)
[2022-01-24] MEDS: Atorvastatin Calcium 40 MG TAB PO SCH (19:59)
[2022-01-24] MEDS: Enoxaparin Sodium 40 MG/0.4 ML SYRINGE SC SCH (20:00)
[2022-01-24] MEDS: Lidocaine 5% Patch TD SCH (20:04)
[2022-01-25] MEDS: Aspirin Chewable 81 MG TAB PO SCH (08:40)
[2022-01-25] MEDS: Ferrous Sulfate 325 MG TAB PO SCH ×2 (08:40→20:23)
[2022-01-25] MEDS: Multivitamin W/ Minerals 1 TAB PO SCH (08:41)
[2022-01-25] MEDS: Metoprolol Tartrate 25 MG TAB PO SCH ×2 (08:41→20:24)
[2022-01-25] MEDS: Transdermal Patch Removal TOP SCH (08:43)
[2022-01-25] MEDS: Polyethylene Glycol 3350 17 GM Packet PO SCH (08:43)
[2022-01-25] MEDS: Atorvastatin Calcium 40 MG TAB PO SCH (20:24)
[2022-01-25] MEDS: Melatonin 3 MG TAB PO PRN (20:24)
[2022-01-25] MEDS: Enoxaparin Sodium 40 MG/0.4 ML SYRINGE SC SCH (20:24)
[2022-01-25] MEDS: Lidocaine 5% Patch TD SCH (20:30)
[2022-01-26 08:02] VITALS: BP 128/78; TEMP 98.3
[2022-01-26] MEDS: Aspirin Chewable 81 MG TAB PO SCH (08:27)
[2022-01-26] MEDS: Multivitamin W/ Minerals 1 TAB PO SCH (08:27)
[2022-01-26] MEDS: Ferrous Sulfate 325 MG TAB PO SCH (08:27)
[2022-01-26] MEDS: Polyethylene Glycol 3350 17 GM Packet PO SCH (08:28)
[2022-01-26] MEDS: Metoprolol Tartrate 25 MG TAB PO SCH (08:28)
[2022-01-26] MEDS: Transdermal Patch Removal TOP SCH (08:28)
== END 2022-01-26 16:30 | DRG 69 ==
LOC: ERS 01:38 → ERHOLD 03:52 → NEURO 17:45 → OBSVTOIN 11-30 11:59 → T4-A 12-13 12:50
PROVIDERS: ADMIT Internal Medicine Geriatric Medicine; ATTEND Hospitalist
DX: G45.9 Transient cerebral ischemic attack, unspecified (principal); G93.41 Metabolic encephalopathy; N17.9 Acute kidney failure, unspecified; I50.42 Chronic combined systolic (congestive) and diastolic (congestive) heart failure; I13.0 Hypertensive heart and chronic kidney disease with heart failure and stage 1 through stage 4 chronic kidney disease, or unspecified chronic kidney disease; I69.354 Hemiplegia and hemiparesis following cerebral infarction affecting left non-dominant side; R29.898 Other symptoms and signs involving the musculoskeletal system; Z20.822 Contact with and (suspected) exposure to COVID-19; I25.10 Atherosclerotic heart disease of native coronary artery without angina pectoris; F17.290 Nicotine dependence, other tobacco product, uncomplicated; R29.701 NIHSS score 1; N18.30 Chronic kidney disease, stage 3 unspecified; I65.21 Occlusion and stenosis of right carotid artery; R62.7 Adult failure to thrive; R53.81 Other malaise; R45.1 Restlessness and agitation; F41.9 Anxiety disorder, unspecified; R13.12 Dysphagia, oropharyngeal phase; F19.10 Other psychoactive substance abuse, uncomplicated; R10.9 Unspecified abdominal pain; R06.6 Hiccough; G31.84 Mild cognitive impairment of uncertain or unknown etiology; D64.9 Anemia, unspecified; I69.391 Dysphagia following cerebral infarction; Z79.82 Long term (current) use of aspirin; Z95.5 Presence of coronary angioplasty implant and graft; Z82.3 Family history of stroke; Z79.899 Other long term (current) drug therapy; I25.2 Old myocardial infarction; Z71.51 Drug abuse counseling and surveillance of drug abuser; Z68.26 Body mass index [BMI] 26.0-26.9, adult
CPT/HCPCS: 36415; 36416; 70450; 70496; 70551; 71045; 71250; 72125; 74177; 74230; 76705; 80048; 80053; 80061; 80306; 81003; 81015; 82274; 82607; 82728; 83540; 83690; 83735; 84484; 85025; 85046; 87040; 93005; 93880; 96372; C9113; G0378; J0360; J1644; J1650; J2405; J2550; J2765; J7030; J7042; J7050; J7120; Q0161; Q9967; U0003; U0005

== ENCOUNTER 2024-04-02 04:10 | Inpatient (IN) | payer MEDICARE, MEDICAID ==
[2024-04-02] MEDS ORDERED: Acetaminophen 650 MG Suppository PR PRN (05:14)
[2024-04-02] MEDS: Acetaminophen 325 MG TAB PO SCH ×2 (05:42→12:14)
[2024-04-02] MEDS: Sodium Chloride 0.9% 1,000 ML IV SCH (05:56)
[2024-04-02 06:29] LABS: #Basophils Less than 0.03 10x3/uL (0.0-0.2); #Eosinophils Less than 0.03 10x3/uL (0.0-0.7); %Basophils 0.2 % (0.0-1.0); %Lymphocytes 7.2 % (21.0-51.0); %Monocytes 11.6 % (0.0-10.0); %Neutrophils 80.6 % (42.0-75.0); Hematocrit 44.6 % (42.0-52.0); Hemoglobin 13.7 g/dL (14.0-18.0); Mean Corpuscular HGB CONC 30.7 g/dL (32.0-36.0); Mean Corpuscular Hemoglobin 22.6 pg (27.0-31.0); Mean Corpuscular Volume 73.6 fL (78.0-98.0); Mean Platelet Volume 10.2 fL (7.4-10.4); Platelet Count 258 10x3/uL (130-400); RBC Distribution Width 19.4 % (11.5-14.5); Red Blood Cell (RBC) Count 6.06 mill/uL (4.70-6.10)
[2024-04-02 06:34] LABS: Lactic Acid 1.29 mmol/L (0.5-2.2)
[2024-04-02 06:39] LABS: ALT (SGPT) 30 U/L (8-55); AST (SGOT) 35 U/L (5-34); Albumin 3.2 g/dL (3.4-4.8); Alkaline Phosphatase 134 U/L (40-110); Anion Gap 18 mmol/L (10-20); BUN (Urea Nitrogen) 19 mg/dL (8.4-25.7); Bilirubin, Total 0.6 mg/dL (0.2-1.2); Calc. Creatinine Clearance 67 mL/min (70-130); Calcium 8.6 mg/dL (7.8-10.44); Carbon Dioxide 16 mmol/L (23-31); Chloride 108 mmol/L (98-107); Estimated GFR 52; Globulin 5.3 g/dL (2.4-3.5); Glucose 154 mg/dL (80-115); Protein, Total 8.5 g/dL (5.8-8.1); Sodium 138 mmol/L (136-145)
[2024-04-02 07:02] LABS: Band 10 % (5-11); Large Platelets 5.9 % (0-5); Lymphocytes 6 % (21-51); Microcytosis SLIGHT = 6-15 cells HPF (0-5); Monocytes 4 % (0-10); Neutrophil 78 % (42-75); Platelet Adequacy Comment Platelets Normal; Polychromasia SLIGHT = 2-3 cells HPF (0-2); Reactive Lymphocytes 2 % (0-10)
[2024-04-02] MEDS ORDERED: Dextrose 5% in Water 1,000 ML IV PRN (08:50)
[2024-04-02] MEDS ORDERED: Polyvinyl Alcohol 1.4%/Povidone 0.6% Opth Drops EA EYE PRN (08:50)
[2024-04-02] MEDS ORDERED: Nitroglycerin 0.4 MG TAB (25 Tab Bottle) SL PRN (08:50)
[2024-04-02] MEDS ORDERED: Glucagon 1 MG/ML KIT IM PRN (08:50)
[2024-04-02] MEDS ORDERED: Dextrose 50% Abboject 50 ML SYRINGE SLOW IVP PRN (08:50)
[2024-04-02] MEDS ORDERED: Famotidine 20 MG TAB PO SCH (09:00)
[2024-04-02] MEDS ORDERED: Famotidine/PF 20 mg/2ml Vial SLOW IVP SCH (09:00)
[2024-04-02] MEDS: Aspirin 81 mg Enteric Coated Tablet PO SCH (09:21)
[2024-04-02] MEDS: hydrALAZINE 10 MG TAB PO SCH (09:21)
[2024-04-02] MEDS: Pantoprazole DR 40 MG TAB PO SCH (09:21)
[2024-04-02] MEDS: Metoprolol Tartrate 25 MG TAB PO SCH (09:21)
[2024-04-02] MEDS: dilTIAZem CD 180 MG CAP PO SCH (09:22)
[2024-04-02] MEDS: Oxybutynin 5 MG TAB PO PRN (16:06)
[2024-04-02] MEDS: traZODone HCl 50 MG TAB PO SCH (20:19)
[2024-04-02] MEDS: Finasteride 5 MG TAB PO SCH (20:19)
[2024-04-02] MEDS: Atorvastatin Calcium 40 MG TAB PO SCH (20:19)
[2024-04-02] MEDS ORDERED: traZODone HCl 150 MG TAB PO SCH ×2 (21:00)
[2024-04-03 02:04] LABS: Campy jejuni + coli by PCR Negative (Negative); STEC Shiga Toxin 1+2 Negative (Negative); Salmonella spp. by PCR Negative (Negative); Shigella spp + EIEC by PCR Negative (Negative)
[2024-04-03 05:02] LABS: #Basophils 0.04 10x3/uL (0.0-0.2); #Eosinophils Less than 0.03 10x3/uL (0.0-0.7); %Basophils 0.3 % (0.0-1.0); %Eosinophils 0.1 % (0.0-10.0); %Lymphocytes 11.9 % (21.0-51.0); %Neutrophils 76.3 % (42.0-75.0); Hematocrit 48.8 % (42.0-52.0); Hemoglobin 14.6 g/dL (14.0-18.0); Mean Corpuscular HGB CONC 29.9 g/dL (32.0-36.0); Mean Corpuscular Volume 73.5 fL (78.0-98.0); Platelet Count 257 10x3/uL (130-400); RBC Distribution Width 19.9 % (11.5-14.5); Red Blood Cell (RBC) Count 6.64 mill/uL (4.70-6.10)
[2024-04-03 05:05] LABS: ALT (SGPT) 35 U/L (8-55); AST (SGOT) 36 U/L (5-34); Albumin 3.3 g/dL (3.4-4.8); Alkaline Phosphatase 134 U/L (40-110); Anion Gap 16 mmol/L (10-20); BUN (Urea Nitrogen) 22 mg/dL (8.4-25.7); Bilirubin, Total 0.6 mg/dL (0.2-1.2); Calc. Creatinine Clearance 65 mL/min (70-130); Calcium 9.2 mg/dL (7.8-10.44); Carbon Dioxide 19 mmol/L (23-31); Chloride 107 mmol/L (98-107); Estimated GFR 51; Globulin 5.6 g/dL (2.4-3.5); Glucose 171 mg/dL (80-115); Potassium 4.5 mmol/L (3.5-5.1); Protein, Total 8.9 g/dL (5.8-8.1); Sodium 137 mmol/L (136-145)
[2024-04-03] MEDS: hydrALAZINE 20 MG/ML VIAL SLOW IVP SCH ×2 (05:08→11:21)
[2024-04-03] MEDS ORDERED: hydrALAZINE 20 MG/ML VIAL SLOW IVP PRN (07:45)
[2024-04-03] MEDS: Enoxaparin 40 MG (0.4 mL) SYRINGE SC SCH (08:44)
[2024-04-03] MEDS: Tamsulosin HCl 0.4 MG CAP PO SCH (08:55)
[2024-04-03] MEDS: Famotidine/PF 20 mg/2ml Vial SLOW IVP SCH (08:55)
[2024-04-03] MEDS: Metoclopramide HCl 10 MG (2 mL) VIAL IVP SCH ×2 (08:57→12:36)
[2024-04-03] MEDS: Lactated Ringer's 1,000 ML IV SCH (08:57)
[2024-04-03] MEDS: QUEtiapine 25 MG TAB PO SCH (18:43)
[2024-04-03] MEDS: Insulin Lispro 100 UNIT/ML 10 ML VIAL SC PRN (21:33)
[2024-04-04] MEDS: Ondansetron PF 4 MG/2 ML Vial IVP PRN (04:27)
[2024-04-04 08:33] LABS: Hematocrit 44.9 % (42.0-52.0); Hemoglobin 13.8 g/dL (14.0-18.0); Mean Corpuscular HGB CONC 30.7 g/dL (32.0-36.0); Mean Corpuscular Hemoglobin 22.2 pg (27.0-31.0); Mean Corpuscular Volume 72.3 fL (78.0-98.0); Mean Platelet Volume 10.4 fL (7.4-10.4); Platelet Count 287 10x3/uL (130-400); RBC Distribution Width 19.8 % (11.5-14.5); Red Blood Cell (RBC) Count 6.21 mill/uL (4.70-6.10)
[2024-04-04] MEDS ORDERED: Metoprolol Tartrate 5 MG (5 mL) VIAL IVP SCH (08:45)
[2024-04-04 08:51] LABS: Anion Gap 21 mmol/L (10-20); BUN (Urea Nitrogen) 34 mg/dL (8.4-25.7); Calc. Creatinine Clearance 54 mL/min (70-130); Calcium 9.2 mg/dL (7.8-10.44); Carbon Dioxide 16 mmol/L (23-31); Chloride 105 mmol/L (98-107); Estimated GFR 37; Glucose 295 mg/dL (80-115); Potassium 3.9 mmol/L (3.5-5.1); Sodium 138 mmol/L (136-145)
[2024-04-04 08:58] LABS: Burr Cells SLIGHT = 2-5 cells HPF (0-1); Macrocytosis SLIGHT = 6-15 cells HPF (0-5); Ovalocytes SLIGHT = 2-5 cells HPF (0-1); Platelet Adequacy Comment Platelets Normal; Polychromasia SLIGHT = 2-3 cells HPF (0-2)
[2024-04-04 09:09] LABS: #Basophils 0.03 10x3/uL (0.0-0.2); #Eosinophils Less than 0.03 10x3/uL (0.0-0.7); %Basophils 0.2 % (0.0-1.0); %Monocytes 9.7 % (0.0-10.0); %Neutrophils 85.7 % (42.0-75.0)
[2024-04-04] MEDS: Metoprolol Tartrate 5 MG (5 mL) VIAL IVP SCH (11:00)
[2024-04-04] MEDS: Insulin Glargine 30 UNITS/0.3 ML VIAL SC SCH (11:20)
[2024-04-04] MEDS: Bisacodyl 10 MG SUPP PR SCH (11:21)
[2024-04-04] MEDS: Pantoprazole 40 MG VIAL IVP SCH ×2 (11:22→21:16)
[2024-04-04] MEDS ORDERED: Piperacillin/Tazobactam 3.375 GM in Sodium Chloride 0.9% 100 ML IVPB SCH (12:00)
[2024-04-04 12:28] LABS: #Basophils 0.04 10x3/uL (0.0-0.2); %Basophils 0.4 % (0.0-1.0); %Eosinophils 0.4 % (0.0-10.0); %Lymphocytes 11.1 % (21.0-51.0); %Monocytes 8.1 % (0.0-10.0); %Neutrophils 79.6 % (42.0-75.0); Hematocrit 35.1 % (42.0-52.0); Hemoglobin 11.9 g/dL (14.0-18.0); Mean Corpuscular HGB CONC 33.9 g/dL (32.0-36.0); Mean Corpuscular Hemoglobin 30.9 pg (27.0-31.0); Mean Corpuscular Volume 91.2 fL (78.0-98.0); Mean Platelet Volume 8.5 fL (7.4-10.4); Platelet Count 395 10x3/uL (130-400); RBC Distribution Width 14.5 % (11.5-14.5); Red Blood Cell (RBC) Count 3.85 mill/uL (4.70-6.10)
[2024-04-04 12:39] LABS: INR-International Normal Ratio 1.1; Prothrombin Time 13.9 sec (12.0-14.7)
[2024-04-04 12:46] LABS: Lactic Acid 1.67 mmol/L (0.5-2.2)
[2024-04-04] MEDS: Piperacillin/Tazobactam 3.375 GM in Sodium Chloride 0.9% 100 ML IVPB SCH ×2 (13:21→14:15)
[2024-04-04] MEDS: Lactated Ringer's 1,000 ML IV SCH ×2 (14:10→15:42)
[2024-04-04] MEDS: Octreotide Acetate 50 MCG/ML AMP SLOW IVP SCH (14:10)
[2024-04-04] MEDS: Octreotide Acetate 1,250 MCG in Sodium Chloride 0.9% 250 ML 250 ML IVPB SCH (14:20)
[2024-04-04] MEDS: Pantoprazole 80 MG in Sodium Chloride 0.9% 100 ML IVP SCH (14:20)
[2024-04-04] MEDS ORDERED: Labetalol HCl 100 MG/20 ML VIAL SLOW IVP PRN (14:42)
[2024-04-04 14:47] LABS: Actual Bicarbonate (HCO3a) 22.6 mEq/L (22-28); Base Excess (BEa) -1.8 mEq/L (-2.0 to +3.0); CO2 Tension 37.3 mmHg (35.0-45.0); Calcium, Ionized (arterial) 1.23 mmol/L (1.12-1.30); Carboxyhemoglobin (COHb) 1.4 gm% (0.0-3.0); Hematocrit-ABG 44 % (42.0-52.0); Hemoglobin (Hb) 14.9 g/dL (14.0-18.0); O2 Tension (PaO2), arterial 85.8 mmHg (> 80.0); Potassium - ABG Lab 4.15 mmol/L (3.70-5.30)
[2024-04-04 14:48] LABS: Puncture Site Right Radial artery
[2024-04-04 16:27] LABS: Hematocrit 44.8 % (42.0-52.0)
[2024-04-04 20:28] LABS: Hematocrit 44.2 % (42.0-52.0)
[2024-04-05 00:48] LABS: Hematocrit 45.1 % (42.0-52.0)
[2024-04-05 02:57] LABS: Anion Gap 20 mmol/L (10-20); BUN (Urea Nitrogen) 41 mg/dL (8.4-25.7); Calc. Creatinine Clearance 50 mL/min (70-130); Calcium 9.1 mg/dL (7.8-10.44); Carbon Dioxide 18 mmol/L (23-31); Chloride 107 mmol/L (98-107); Estimated GFR 34; Glucose 238 mg/dL (80-115); Potassium 3.8 mmol/L (3.5-5.1); Sodium 141 mmol/L (136-145)
[2024-04-05 03:16] LABS: #Basophils 0.05 10x3/uL (0.0-0.2); #Eosinophils Less than 0.03 10x3/uL (0.0-0.7); %Basophils 0.4 % (0.0-1.0); %Eosinophils 0.2 % (0.0-10.0); %Lymphocytes 9.6 % (21.0-51.0); %Monocytes 15.5 % (0.0-10.0); Hematocrit 46.8 % (42.0-52.0); Hemoglobin 14.3 g/dL (14.0-18.0); Mean Corpuscular HGB CONC 30.6 g/dL (32.0-36.0); Mean Corpuscular Hemoglobin 22.4 pg (27.0-31.0); Mean Corpuscular Volume 73.5 fL (78.0-98.0); Mean Platelet Volume 10.7 fL (7.4-10.4); Platelet Count 258 10x3/uL (130-400); RBC Distribution Width 20.2 % (11.5-14.5); Red Blood Cell (RBC) Count 6.37 mill/uL (4.70-6.10)
[2024-04-05 03:17] LABS: INR-International Normal Ratio 1.1; Prothrombin Time 14.4 sec (12.0-14.7)
[2024-04-05 05:48] LABS: Anisocytosis SLIGHT = 6-15 cells HPF (0-5); Macrocytosis SLIGHT = 6-15 cells HPF (0-5); Platelet Adequacy Comment Platelets Normal; Polychromasia SLIGHT = 2-3 cells HPF (0-2)
[2024-04-05] MEDS ORDERED: Ipratropium/Albuterol 3 ML NEB NEB PRN (09:23)
[2024-04-05] MEDS: Metoprolol Tartrate 5 MG (5 mL) VIAL IVP SCH (13:35)
[2024-04-05] MEDS: Lactated Ringer's 1,000 ML IV SCH (13:35)
[2024-04-05] MEDS: FLU (Fluad Triv) TS24-25 (65UP)/MF59C/PF 45 MCG/0.5 ML Syringe IM ONE (17:47)
[2024-04-05] MEDS: Metoprolol Tartrate 5 MG (5 mL) VIAL IVP PRN (18:31)
[2024-04-06 03:24] LABS: #Basophils 0.04 10x3/uL (0.0-0.2); %Basophils 0.3 % (0.0-1.0); %Eosinophils 1.6 % (0.0-10.0); %Lymphocytes 8.6 % (21.0-51.0); %Monocytes 11.3 % (0.0-10.0); %Neutrophils 77.8 % (42.0-75.0); Hematocrit 46.1 % (42.0-52.0); Mean Corpuscular HGB CONC 30.4 g/dL (32.0-36.0); Mean Corpuscular Hemoglobin 22.5 pg (27.0-31.0); Mean Platelet Volume 10.5 fL (7.4-10.4); Platelet Count 297 10x3/uL (130-400); RBC Distribution Width 19.9 % (11.5-14.5); Red Blood Cell (RBC) Count 6.23 mill/uL (4.70-6.10)
[2024-04-06 03:36] LABS: Anion Gap 18 mmol/L (10-20); BUN (Urea Nitrogen) 42 mg/dL (8.4-25.7); Calc. Creatinine Clearance 56 mL/min (70-130); Calcium 9.3 mg/dL (7.8-10.44); Carbon Dioxide 20 mmol/L (23-31); Chloride 107 mmol/L (98-107); Estimated GFR 38; Glucose 282 mg/dL (80-115); Potassium 3.8 mmol/L (3.5-5.1); Sodium 141 mmol/L (136-145)
[2024-04-06 04:11] LABS: Burr Cells SLIGHT = 2-5 cells HPF (0-1); Platelet Adequacy Comment Platelets Normal; Poikilocytosis SLIGHT = 6-15 cells HPF (0-5)
[2024-04-06 08:18] LABS: Troponin I Less than 0.010 ng/mL (< 0.028)
[2024-04-06] MEDS: Enoxaparin 120 MG/0.8 ML SYRINGE SC SCH (08:22)
[2024-04-06] MEDS: Diltiazem HCl/D5W 125 MG in Premix 1 BAG IVPB SCH (08:22)
[2024-04-06] MEDS: dilTIAZem 25 MG/5 ML VIAL SLOW IVP SCH (08:22)
[2024-04-06] MEDS: Metoprolol Tartrate 50 MG TAB PO SCH (08:37)
[2024-04-06] MEDS: Digoxin 0.5 MG/2 ML AMP ONE (09:52)
[2024-04-06] MEDS: Digoxin 0.5 MG/2 ML AMP SLOW IVP SCH (09:52)
[2024-04-06] MEDS: Metoprolol Tartrate 5 MG (5 mL) VIAL IVP SCH (13:49)
[2024-04-06] MEDS ORDERED: Potassium Chloride 20 MEQ in Premix 1 BAG IVPB SCH (15:15)
[2024-04-06] MEDS: Potassium Chloride 20 MEQ in Premix 1 BAG IVPB SCH (16:32)
[2024-04-06] MEDS: Amiodarone 150 MG, Admixture Fee 1 EACH in Dextrose 5% in Water 100 ML IVPB SCH (18:00)
[2024-04-07] MEDS: Amiodarone 450 MG, Admixture Fee 1 EACH in Dextrose 5% in Water 250 ML IVPB SCH (01:01)
[2024-04-07 03:23] LABS: Anion Gap 17 mmol/L (10-20); BUN (Urea Nitrogen) 44 mg/dL (8.4-25.7); Calc. Creatinine Clearance 67 mL/min (70-130); Calcium 9.3 mg/dL (7.8-10.44); Carbon Dioxide 21 mmol/L (23-31); Chloride 109 mmol/L (98-107); Estimated GFR 44; Glucose 192 mg/dL (80-115); Magnesium 2.6 mg/dL (1.6-2.6); Sodium 143 mmol/L (136-145)
[2024-04-07 03:44] LABS: #Basophils 0.03 10x3/uL (0.0-0.2); %Basophils 0.2 % (0.0-1.0); %Eosinophils 0.8 % (0.0-10.0); %Lymphocytes 13.4 % (21.0-51.0); %Monocytes 13.5 % (0.0-10.0); %Neutrophils 71.5 % (42.0-75.0); Hematocrit 48.4 % (42.0-52.0); Hemoglobin 14.6 g/dL (14.0-18.0); Mean Corpuscular HGB CONC 30.2 g/dL (32.0-36.0); Mean Corpuscular Hemoglobin 22.5 pg (27.0-31.0); Mean Corpuscular Volume 74.6 fL (78.0-98.0); Mean Platelet Volume 10.3 fL (7.4-10.4); Platelet Count 262 10x3/uL (130-400); RBC Distribution Width 20.1 % (11.5-14.5); Red Blood Cell (RBC) Count 6.49 mill/uL (4.70-6.10)
[2024-04-07] MEDS ORDERED: MD-Gastroview 120 ML BOT ONE (07:50)
[2024-04-07] MEDS: Enoxaparin 100 MG (1 mL) SYRINGE SC SCH (20:27)
[2024-04-08 03:26] LABS: #Basophils 0.04 10x3/uL (0.0-0.2); %Basophils 0.3 % (0.0-1.0); %Lymphocytes 13.4 % (21.0-51.0); %Monocytes 11.4 % (0.0-10.0); %Neutrophils 73.2 % (42.0-75.0); Hematocrit 42.6 % (42.0-52.0); Hemoglobin 12.9 g/dL (14.0-18.0); Mean Corpuscular HGB CONC 30.3 g/dL (32.0-36.0); Mean Corpuscular Hemoglobin 22.8 pg (27.0-31.0); Mean Corpuscular Volume 75.3 fL (78.0-98.0); Mean Platelet Volume 10.3 fL (7.4-10.4); Platelet Count 289 10x3/uL (130-400); RBC Distribution Width 19.8 % (11.5-14.5); Red Blood Cell (RBC) Count 5.66 mill/uL (4.70-6.10)
[2024-04-08 04:22] LABS: Anion Gap 19 mmol/L (10-20); BUN (Urea Nitrogen) 33 mg/dL (8.4-25.7); Calc. Creatinine Clearance 62 mL/min (70-130); Carbon Dioxide 20 mmol/L (23-31); Chloride 108 mmol/L (98-107); Estimated GFR 44; Glucose 170 mg/dL (80-115); Potassium 3.6 mmol/L (3.5-5.1); Sodium 143 mmol/L (136-145)
[2024-04-08] MEDS: Tamsulosin HCl 0.4 MG CAP PO SCH (11:24)
[2024-04-08] MEDS: Finasteride 5 MG TAB PO SCH (11:24)
[2024-04-08] MEDS: Metoclopramide HCl 10 MG TAB PO SCH (11:56)
[2024-04-08] MEDS: Phenazopyridine HCl 100 MG TAB PO SCH ×2 (13:22→18:08)
[2024-04-08] MEDS: Ondansetron ODT 4 MG TAB PO PRN (14:47)
[2024-04-08] MEDS: hydrALAZINE 25 MG TAB PO SCH (18:10)
[2024-04-08] MEDS: Senokot S 8.6-50 MG TAB PO SCH (21:20)
[2024-04-09 04:37] LABS: #Basophils 0.04 10x3/uL (0.0-0.2); %Basophils 0.3 % (0.0-1.0); %Eosinophils 0.7 % (0.0-10.0); %Lymphocytes 13.9 % (21.0-51.0); %Monocytes 11.1 % (0.0-10.0); %Neutrophils 72.7 % (42.0-75.0); Hemoglobin 9.9 g/dL (14.0-18.0); Mean Corpuscular HGB CONC 30.9 g/dL (32.0-36.0); Mean Corpuscular Hemoglobin 22.6 pg (27.0-31.0); Mean Corpuscular Volume 73.1 fL (78.0-98.0); Mean Platelet Volume 11.7 fL (7.4-10.4); Platelet Count 261 10x3/uL (130-400); RBC Distribution Width 18.7 % (11.5-14.5); Red Blood Cell (RBC) Count 4.38 mill/uL (4.70-6.10)
[2024-04-09 04:45] LABS: Anion Gap 13 mmol/L (10-20); BUN (Urea Nitrogen) 25 mg/dL (8.4-25.7); Calc. Creatinine Clearance 77 mL/min (70-130); Calcium 8.3 mg/dL (7.8-10.44); Carbon Dioxide 22 mmol/L (23-31); Chloride 104 mmol/L (98-107); Estimated GFR 56; Glucose 224 mg/dL (80-115); Potassium 3.3 mmol/L (3.5-5.1); Sodium 136 mmol/L (136-145)
[2024-04-09] MEDS ORDERED: Electrolyte Replacement Protocol 1 EACH FS SCH (07:30)
[2024-04-09] MEDS: Pantoprazole DR 40 MG TAB PO SCH (08:36)
[2024-04-09] MEDS: Potassium Chloride 20 MEQ TAB PO SCH (08:36)
[2024-04-09] MEDS: Empagliflozin 10 MG TAB PO SCH (08:36)
[2024-04-09] MEDS: Tamsulosin HCl 0.4 MG CAP PO SCH (08:36)
[2024-04-09] MEDS: Hyaluronidase, Human Recomb. 150 UNITS/ML VIAL SC SCH (09:53)
[2024-04-09] MEDS: Clindamycin 150 MG CAP PO SCH (09:54)
[2024-04-09] MEDS: HYDROcodone/Acetaminophen 5/325 mg Tablet PO SCH (09:54)
[2024-04-09] MEDS: Saccharomyces boulardii 250 MG CAP PO SCH (09:55)
[2024-04-09] MEDS ORDERED: Clindamycin/D5W 900 MG in Premix 1 BAG IVPB SCH (10:00)
[2024-04-09] MEDS: HYDROcodone/Acetaminophen 5/325 mg Tablet PO PRN (20:38)
[2024-04-10 03:51] LABS: #Basophils 0.05 10x3/uL (0.0-0.2); %Basophils 0.2 % (0.0-1.0); %Eosinophils 0.3 % (0.0-10.0); %Lymphocytes 10.1 % (21.0-51.0); %Monocytes 11.4 % (0.0-10.0); %Neutrophils 75.4 % (42.0-75.0); Hematocrit 27.3 % (42.0-52.0); Hemoglobin 8.4 g/dL (14.0-18.0); Mean Corpuscular HGB CONC 30.8 g/dL (32.0-36.0); Mean Corpuscular Hemoglobin 23.1 pg (27.0-31.0); Mean Corpuscular Volume 75.2 fL (78.0-98.0); Mean Platelet Volume 11.2 fL (7.4-10.4); Platelet Count 234 10x3/uL (130-400); Red Blood Cell (RBC) Count 3.63 mill/uL (4.70-6.10)
[2024-04-10 04:09] LABS: Anion Gap 16 mmol/L (10-20); BUN (Urea Nitrogen) 24 mg/dL (8.4-25.7); Calc. Creatinine Clearance 60 mL/min (70-130); Calcium 8.4 mg/dL (7.8-10.44); Carbon Dioxide 19 mmol/L (23-31); Chloride 102 mmol/L (98-107); Estimated GFR 41; Glucose 236 mg/dL (80-115); Potassium 3.8 mmol/L (3.5-5.1); Sodium 133 mmol/L (136-145)
[2024-04-10] MEDS: Saccharomyces boulardii 250 MG CAP PO SCH (08:08)
[2024-04-10] MEDS: Albumin 25% 25 GM (100 mL) BOT IVPB SCH (11:03)
[2024-04-10] MEDS: Clindamycin/D5W 900 mg/50 ml Premix Bag ONE ×3 (11:04→16:26)
[2024-04-10] MEDS: Clindamycin/D5W 900 MG in Premix 1 BAG IVPB SCH (11:25)
[2024-04-10] MEDS: Metoclopramide HCl 10 MG (2 mL) VIAL IVP SCH (16:26)
[2024-04-11 02:07] LABS: Hematocrit 18.8 % (42.0-52.0); Hemoglobin 5.7 g/dL (14.0-18.0); Mean Corpuscular HGB CONC 30.3 g/dL (32.0-36.0); Mean Corpuscular Hemoglobin 23.1 pg (27.0-31.0); Mean Corpuscular Volume 76.1 fL (78.0-98.0); Mean Platelet Volume 11.4 fL (7.4-10.4); Platelet Count 237 10x3/uL (130-400); RBC Distribution Width 19.2 % (11.5-14.5); Red Blood Cell (RBC) Count 2.47 mill/uL (4.70-6.10)
[2024-04-11 02:15] LABS: ALT (SGPT) 14 U/L (8-55); AST (SGOT) 20 U/L (5-34); Albumin 3.2 g/dL (3.4-4.8); Alkaline Phosphatase 55 U/L (40-110); Anion Gap 16 mmol/L (10-20); BUN (Urea Nitrogen) 32 mg/dL (8.4-25.7); Calc. Creatinine Clearance 63 mL/min (70-130); Calcium 8.5 mg/dL (7.8-10.44); Carbon Dioxide 20 mmol/L (23-31); Chloride 103 mmol/L (98-107); Estimated GFR 45; Globulin 3.1 g/dL (2.4-3.5); Glucose 193 mg/dL (80-115); Magnesium 2.4 mg/dL (1.6-2.6); Potassium 4.2 mmol/L (3.5-5.1); Protein, Total 6.3 g/dL (5.8-8.1); Sodium 135 mmol/L (136-145)
[2024-04-11 02:28] LABS: Band 7 % (5-11); Hypochromia SLIGHT = 6-15 cells HPF (0-5); Large Platelets 13.7 % (0-5); Lymphocytes 12 % (21-51); Macrocytosis SLIGHT = 6-15 cells HPF (0-5); Monocytes 2 % (0-10); Neutrophil 79 % (42-75); Nucleated RBC (Manual Ct) 2 % (0); Platelet Adequacy Comment Platelets Normal; Polychromasia SLIGHT = 2-3 cells HPF (0-2); Spherocytes SLIGHT = 1-5 cells HPF (None Seen); Target Cells SLIGHT = 2-5 cells HPF (0-1)
[2024-04-11] MEDS: Pantoprazole 40 MG VIAL IVP SCH ×2 (03:07→08:36)
[2024-04-11 07:56] LABS: Hematocrit 19.4 % (42.0-52.0); Hemoglobin 6.1 g/dL (14.0-18.0)
[2024-04-11 14:16] LABS: Hematocrit 24.7 % (42.0-52.0); Hemoglobin 7.7 g/dL (14.0-18.0)
[2024-04-11 19:21] LABS: Hematocrit 23.6 % (42.0-52.0); Hemoglobin 7.5 g/dL (14.0-18.0); Mean Corpuscular HGB CONC 31.8 g/dL (32.0-36.0); Mean Corpuscular Hemoglobin 24.3 pg (27.0-31.0); Mean Corpuscular Volume 76.4 fL (78.0-98.0); Mean Platelet Volume 10.7 fL (7.4-10.4); Platelet Count 245 10x3/uL (130-400); RBC Distribution Width 19.9 % (11.5-14.5); Red Blood Cell (RBC) Count 3.09 mill/uL (4.70-6.10)
[2024-04-11 19:44] LABS: Anisocytosis SLIGHT = 6-15 cells HPF (0-5); Band 15 % (5-11); Elliptocytes SLIGHT = 2-5 cells HPF (0-1); Eosinophils 1 % (0-10); Hypochromia SLIGHT = 6-15 cells HPF (0-5); Lymphocytes 8 % (21-51); Metamyelocyte 1 % (0-0); Microcytosis SLIGHT = 6-15 cells HPF (0-5); Monocytes 12 % (0-10); Neutrophil 62 % (42-75); Nucleated RBC (Manual Ct) 5 % (0); Platelet Adequacy Comment Platelets Normal; Poikilocytosis SLIGHT = 6-15 cells HPF (0-5); Polychromasia MODERATE = 3-4 cells HPF (0-2); Reactive Lymphocytes 1 % (0-10); Target Cells SLIGHT = 2-5 cells HPF (0-1)
[2024-04-11] MEDS: Morphine 2 MG/ML VIAL SLOW IVP PRN (20:47)
[2024-04-12 04:04] LABS: Hematocrit 25.1 % (42.0-52.0); Hemoglobin 7.7 g/dL (14.0-18.0); Mean Corpuscular HGB CONC 30.7 g/dL (32.0-36.0); Mean Corpuscular Volume 78.2 fL (78.0-98.0); Mean Platelet Volume 10.5 fL (7.4-10.4); Platelet Count 245 10x3/uL (130-400); RBC Distribution Width 20.9 % (11.5-14.5); Red Blood Cell (RBC) Count 3.21 mill/uL (4.70-6.10)
[2024-04-12 04:14] LABS: Anion Gap 17 mmol/L (10-20); BUN (Urea Nitrogen) 26 mg/dL (8.4-25.7); Calc. Creatinine Clearance 77 mL/min (70-130); Calcium 8.8 mg/dL (7.8-10.44); Carbon Dioxide 18 mmol/L (23-31); Chloride 109 mmol/L (98-107); Estimated GFR 57; Glucose 152 mg/dL (80-115); Iron 11 ug/dL (65-175); Potassium 4.2 mmol/L (3.5-5.1); Sodium 140 mmol/L (136-145)
[2024-04-12 04:39] LABS: Ferritin 128.63 ng/mL (22-322)
[2024-04-12 04:46] LABS: Anisocytosis MODERATE=16-30 cells HPF (0-5); Band 14 % (5-11); Elliptocytes SLIGHT = 2-5 cells HPF (0-1); Hypochromia SLIGHT = 6-15 cells HPF (0-5); Lymphocytes 5 % (21-51); Metamyelocyte 2 % (0-0); Microcytosis SLIGHT = 6-15 cells HPF (0-5); Monocytes 9 % (0-10); Neutrophil 70 % (42-75); Nucleated RBC (Manual Ct) 4 % (0); Platelet Adequacy Comment Platelets Normal; Polychromasia MODERATE = 3-4 cells HPF (0-2); Spherocytes SLIGHT = 1-5 cells HPF (None Seen); Target Cells SLIGHT = 2-5 cells HPF (0-1)
[2024-04-12] MEDS ORDERED: Vancomycin 1 GM in Sodium Chloride 0.9% 250 ML 300 ML IVPB SCH (08:00)
[2024-04-12] MEDS: Cefepime 2 GM in Sodium Chloride 0.9% 100 ML IVPB SCH (08:19)
[2024-04-12] MEDS: Vancomycin 1 GM in Premix 1 BAG IVPB SCH (08:20)
[2024-04-12] MEDS: Sodium Bicarbonate Tab 325 MG TAB PO SCH ×2 (12:54→12:55)
[2024-04-12] MEDS: Vancomycin (BATCH) 1.5 GM in Premix 1 BAG IVPB SCH (12:55)
[2024-04-12] MEDS: Vancomycin 1.5 GRAM/300 ML BAG 1.5 GM in Premix 1 BAG IVPB SCH (12:57)
[2024-04-13 04:25] LABS: Vancomycin, Random 28.9 ug/mL (See Comment)
[2024-04-13 05:32] LABS: Hematocrit 32.9 % (42.0-52.0); Hemoglobin 10.1 g/dL (14.0-18.0); Mean Corpuscular HGB CONC 30.7 g/dL (32.0-36.0); Mean Corpuscular Hemoglobin 24.2 pg (27.0-31.0); Mean Corpuscular Volume 78.9 fL (78.0-98.0); Mean Platelet Volume 11.6 fL (7.4-10.4); Platelet Count 231 10x3/uL (130-400); Red Blood Cell (RBC) Count 4.17 mill/uL (4.70-6.10)
[2024-04-13 06:03] LABS: Anisocytosis SLIGHT = 6-15 cells HPF (0-5); Band 14 % (5-11); Eosinophils 2 % (0-10); Hypochromia SLIGHT = 6-15 cells HPF (0-5); Lymphocytes 2 % (21-51); Microcytosis SLIGHT = 6-15 cells HPF (0-5); Monocytes 5 % (0-10); Myelocyte 1 % (0-0); Neutrophil 75 % (42-75); Nucleated RBC (Manual Ct) 2 % (0); Platelet Adequacy Comment Platelets Normal; Poikilocytosis SLIGHT = 6-15 cells HPF (0-5); Polychromasia MODERATE = 3-4 cells HPF (0-2); Reactive Lymphocytes 1 % (0-10); Target Cells SLIGHT = 2-5 cells HPF (0-1)
[2024-04-13 06:31] LABS: Anion Gap 21 mmol/L (10-20); BUN (Urea Nitrogen) 22 mg/dL (8.4-25.7); Calc. Creatinine Clearance 80 mL/min (70-130); Calcium 9.2 mg/dL (7.8-10.44); Carbon Dioxide 15 mmol/L (23-31); Chloride 109 mmol/L (98-107); Estimated GFR 61; Glucose 116 mg/dL (80-115); Potassium 4.3 mmol/L (3.5-5.1); Sodium 141 mmol/L (136-145)
[2024-04-13] MEDS: Sodium Bicarbonate Tab 325 MG TAB PO SCH (09:14)
[2024-04-13] MEDS: Cyanocobalamin (Vitamin B-12) 1,000 MCG TAB PO SCH (09:14)
[2024-04-13] MEDS: Amiodarone 200 MG TAB PO SCH (09:14)
[2024-04-13 09:52] LABS: Actual Bicarbonate (HCO3v) 21.8 mEq/L (22-28); Base Excess -3.3 mEq/L (-2.0 to +3.0); Calcium, Ionized (venous) 1.16 mmol/L (1.16-1.32); Chloride (VBG) 105 mmol/L (98-106); Hematocrit-VBG 28 % (42.0-52.0); Hemoglobin (Hb) 9.5 g/dL (12.6-17.4); Potassium (VBG) 4.16 mmol/L (3.70-5.30); Sodium 141 mmol/L (133-146); pH (venous) 7.362 (7.32-7.43)
[2024-04-13] MEDS ORDERED: Vancomycin (BATCH) 1.5 GM in Premix 1 BAG IVPB SCH (12:00)
[2024-04-13] MEDS: Simethicone Chewable 80 MG TAB PO SCH (16:56)
[2024-04-13] MEDS: Vancomycin 1 GM in Premix 1 BAG IVPB SCH (17:01)
[2024-04-13] MEDS: Bisacodyl 10 MG SUPP PR SCH (17:36)
[2024-04-13] MEDS: Enoxaparin 80 MG (0.8 mL) SYRINGE SC SCH (20:40)
[2024-04-13] MEDS: Simethicone Chewable 80 MG TAB PO PRN (20:41)
[2024-04-14 04:19] LABS: Magnesium 2.2 mg/dL (1.6-2.6); Phosphorus 3.2 mg/dL (2.3-4.7)
[2024-04-14 06:04] LABS: Hematocrit 27.5 % (42.0-52.0); Hemoglobin 8.2 g/dL (14.0-18.0); Mean Corpuscular HGB CONC 29.8 g/dL (32.0-36.0); Mean Corpuscular Hemoglobin 23.8 pg (27.0-31.0); Mean Corpuscular Volume 79.7 fL (78.0-98.0); Mean Platelet Volume 11.4 fL (7.4-10.4); Platelet Count 333 10x3/uL (130-400); RBC Distribution Width 22.3 % (11.5-14.5); Red Blood Cell (RBC) Count 3.45 mill/uL (4.70-6.10)
[2024-04-14 06:39] LABS: Band 18 % (5-11); Eosinophils 1 % (0-10); Hypochromia SLIGHT = 6-15 cells HPF (0-5); Lymphocytes 4 % (21-51); Microcytosis SLIGHT = 6-15 cells HPF (0-5); Monocytes 4 % (0-10); Neutrophil 72 % (42-75); Nucleated RBC (Manual Ct) 4 % (0); Platelet Adequacy Comment Platelets Normal; Poikilocytosis SLIGHT = 6-15 cells HPF (0-5); Polychromasia MODERATE = 3-4 cells HPF (0-2); Target Cells SLIGHT = 2-5 cells HPF (0-1)
[2024-04-14 07:50] LABS: Anion Gap 20 mmol/L (10-20); BUN (Urea Nitrogen) 18 mg/dL (8.4-25.7); Calc. Creatinine Clearance 93 mL/min (70-130); Calcium 8.7 mg/dL (7.8-10.44); Carbon Dioxide 15 mmol/L (23-31); Chloride 107 mmol/L (98-107); Estimated GFR 74; Glucose 114 mg/dL (80-115); Potassium 3.9 mmol/L (3.5-5.1); Sodium 138 mmol/L (136-145)
[2024-04-15] MEDS ORDERED: Tamsulosin HCl 0.4 MG CAP ONE ×2 (08:11→09:00)
[2024-04-15] MEDS ORDERED: Cyanocobalamin (Vitamin B-12) 1,000 MCG TAB ONE (08:11)
[2024-04-15] MEDS ORDERED: Phenazopyridine HCl 100 MG TAB ONE ×2 (08:11→12:11)
[2024-04-15] MEDS ORDERED: Finasteride 5 MG TAB ONE (08:11)
[2024-04-15] MEDS ORDERED: Saccharomyces boulardii 250 MG CAP ONE ×2 (08:11→09:00)
[2024-04-15] MEDS ORDERED: Pantoprazole 40 MG VIAL ONE (08:11)
[2024-04-15] MEDS ORDERED: Amiodarone 200 MG TAB ONE ×3 (08:11→21:00)
[2024-04-15] MEDS ORDERED: Sodium Bicarbonate Tab 325 MG TAB ONE ×3 (08:11→21:00)
[2024-04-16] MEDS ORDERED: Finasteride 5 MG TAB ONE (09:22)
[2024-04-16] MEDS ORDERED: Cyanocobalamin (Vitamin B-12) 1,000 MCG TAB ONE (09:22)
[2024-04-16] MEDS ORDERED: Pantoprazole DR 40 MG TAB ONE (09:22)
[2024-04-16] MEDS ORDERED: Phenazopyridine HCl 100 MG TAB ONE ×2 (09:22→17:54)
[2024-04-16] MEDS ORDERED: Clindamycin/D5W 600 mg/50 ml Premix Bag ONE ×3 (14:02→23:59)
[2024-04-16] MEDS ORDERED: Metoclopramide HCl 10 MG TAB ONE ×2 (14:02→21:00)
[2024-04-16] MEDS ORDERED: Sodium Bicarbonate Tab 325 MG TAB ONE (21:00)
[2024-04-16] MEDS ORDERED: Clindamycin 150 MG CAP ONE (21:00)
[2024-04-16] MEDS ORDERED: Senokot S 8.6-50 MG TAB ONE (21:00)
[2024-04-16] MEDS ORDERED: Clindamycin 150 MG CAP PO SCH (21:00)
[2024-04-16] MEDS ORDERED: Amiodarone 200 MG TAB ONE (21:00)
[2024-04-16] MEDS ORDERED: Pantoprazole 40 MG VIAL ONE (21:00)
[2024-04-16] MEDS ORDERED: HYDROcodone/Acetaminophen 5/325 mg Tablet ONE (21:00)
[2024-04-17 05:01] LABS: #Basophils 0.07 10x3/uL (0.0-0.2); %Basophils 0.5 % (0.0-1.0); %Lymphocytes 10.6 % (21.0-51.0); %Monocytes 9.5 % (0.0-10.0); %Neutrophils 73.7 % (42.0-75.0); Hematocrit 31.1 % (42.0-52.0); Hemoglobin 9.2 g/dL (14.0-18.0); Mean Corpuscular HGB CONC 29.6 g/dL (32.0-36.0); Mean Platelet Volume 11.1 fL (7.4-10.4); Platelet Count 331 10x3/uL (130-400); RBC Distribution Width 24.5 % (11.5-14.5); Red Blood Cell (RBC) Count 3.84 mill/uL (4.70-6.10)
[2024-04-17] MEDS ORDERED: Clindamycin/D5W 600 mg/50 ml Premix Bag ONE (05:10)
[2024-04-17 05:54] LABS: Anion Gap 16 mmol/L (10-20); BUN (Urea Nitrogen) 12 mg/dL (8.4-25.7); Calc. Creatinine Clearance 71 mL/min (70-130); Calcium 8.9 mg/dL (7.8-10.44); Carbon Dioxide 19 mmol/L (23-31); Chloride 104 mmol/L (98-107); Estimated GFR 53; Glucose 170 mg/dL (80-115); Potassium 4.2 mmol/L (3.5-5.1); Sodium 135 mmol/L (136-145)
[2024-04-17 06:01] LABS: Anisocytosis MODERATE=16-30 cells HPF (0-5); Hypochromia SLIGHT = 6-15 cells HPF (0-5); Microcytosis SLIGHT = 6-15 cells HPF (0-5); Platelet Adequacy Comment Platelets Normal; Polychromasia MODERATE = 3-4 cells HPF (0-2)
[2024-04-17] MEDS: Clindamycin/D5W 600 mg/50 ml Premix Bag ONE ×2 (08:21)
[2024-04-17] MEDS: Polyethylene Glycol 3350 17 GM Packet PO SCH (12:49)
[2024-04-17] MEDS ORDERED: Phenazopyridine HCl 100 MG TAB ONE (13:50)
[2024-04-17 14:26] VITALS: BMI 32.3
[2024-04-17] MEDS: Metoclopramide HCl 10 MG (2 mL) VIAL ONE (17:29)
[2024-04-17] MEDS: Clindamycin 150 MG CAP PO SCH (17:34)
[2024-04-18] MEDS: Polyethylene Glycol 3350 17 GM Packet PO SCH (08:40)
[2024-04-18] MEDS: Bisacodyl 5 MG TAB PO SCH (12:57)
[2024-04-18] MEDS: Metoclopramide HCl 10 MG TAB PO SCH (12:57)
[2024-04-19 06:15] LABS: Anion Gap 13 mmol/L (10-20); BUN (Urea Nitrogen) 13 mg/dL (8.4-25.7); Calc. Creatinine Clearance 75 mL/min (70-130); Calcium 8.8 mg/dL (7.8-10.44); Carbon Dioxide 20 mmol/L (23-31); Chloride 105 mmol/L (98-107); Estimated GFR 57; Glucose 158 mg/dL (80-115); Potassium 4.3 mmol/L (3.5-5.1); Sodium 134 mmol/L (136-145)
[2024-04-19 06:39] LABS: Hematocrit 29.5 % (42.0-52.0); Hemoglobin 8.7 g/dL (14.0-18.0); Mean Corpuscular HGB CONC 29.5 g/dL (32.0-36.0); Mean Corpuscular Volume 81.3 fL (78.0-98.0); Mean Platelet Volume 10.8 fL (7.4-10.4); Platelet Count 374 10x3/uL (130-400); RBC Distribution Width 25.3 % (11.5-14.5); Red Blood Cell (RBC) Count 3.63 mill/uL (4.70-6.10)
[2024-04-19 06:40] LABS: Anisocytosis MODERATE=16-30 cells HPF (0-5); Band 1 % (5-11); Eosinophils 2 % (0-10); Hypochromia SLIGHT = 6-15 cells HPF (0-5); Large Platelets 4.9 % (0-5); Lymphocytes 8 % (21-51); Metamyelocyte 2 % (0-0); Microcytosis SLIGHT = 6-15 cells HPF (0-5); Monocytes 10 % (0-10); Neutrophil 77 % (42-75); Platelet Adequacy Comment Platelets Normal; Polychromasia MODERATE = 3-4 cells HPF (0-2); Smudge Cells 12.7 %
[2024-04-20] MEDS: Clindamycin/D5W 600 mg/50 ml Premix Bag ONE ×6 (04:04→12:22)
[2024-04-20] MEDS: Metoclopramide HCl 10 MG (2 mL) VIAL ONE ×5 (04:05→12:22)
[2024-04-20 06:14] VITALS: BMI 32.5
[2024-04-20] MEDS: Metoprolol Tartrate 25 MG TAB PO SCH (11:55)
[2024-04-20] MEDS: Lactated Ringer's 1,000 ML IV SCH (12:21)
[2024-04-20] MEDS: Clindamycin 150 MG CAP ONE (12:21)
[2024-04-20 16:19] VITALS: BP 121/77; TEMP 98.1
[2024-04-20] MEDS ORDERED: Metoprolol Tartrate 25 MG TAB PO SCH (21:00)
[2024-04-21] MEDS ORDERED: Amiodarone 200 MG TAB PO SCH (09:00)
== END 2024-04-20 16:55 | DRG 389 ==
LOC: 2NO 04:21 → IMCU/EMU 04-04 13:40 → PCU 04-08 20:12
PROVIDERS: ADMIT Student in an Organized Health Care Education/Training Program; ATTEND Internal Medicine
PROC: 4A033R1 Measurement of Arterial Saturation, Peripheral, Percutaneous Approach (ICD-10-PCS; 2024-04-04)
PROC: 30233J1 Transfusion of Nonautologous Serum Albumin into Peripheral Vein, Percutaneous Approach (ICD-10-PCS; 2024-04-10)
PROC: 30233N1 Transfusion of Nonautologous Red Blood Cells into Peripheral Vein, Percutaneous Approach (ICD-10-PCS; principal; 2024-04-11)
DX: K56.600 Partial intestinal obstruction, unspecified as to cause (principal); D62 Acute posthemorrhagic anemia; I13.0 Hypertensive heart and chronic kidney disease with heart failure and stage 1 through stage 4 chronic kidney disease, or unspecified chronic kidney disease; N17.9 Acute kidney failure, unspecified; L03.113 Cellulitis of right upper limb; R65.10 Systemic inflammatory response syndrome (SIRS) of non-infectious origin without acute organ dysfunction; E87.20 Acidosis, unspecified; K21.00 Gastro-esophageal reflux disease with esophagitis, without bleeding; N18.9 Chronic kidney disease, unspecified; E11.22 Type 2 diabetes mellitus with diabetic chronic kidney disease; E78.5 Hyperlipidemia, unspecified; Z79.899 Other long term (current) drug therapy; Z79.82 Long term (current) use of aspirin; I25.10 Atherosclerotic heart disease of native coronary artery without angina pectoris; I50.9 Heart failure, unspecified; I25.2 Old myocardial infarction; F03.90 Unspecified dementia, unspecified severity, without behavioral disturbance, psychotic disturbance, mood disturbance, and anxiety; I48.0 Paroxysmal atrial fibrillation; Z86.73 Personal history of transient ischemic attack (TIA), and cerebral infarction without residual deficits; Z79.4 Long term (current) use of insulin; Z88.8 Allergy status to other drugs, medicaments and biological substances; Z87.891 Personal history of nicotine dependence
CPT/HCPCS: 36415; 36416; 36430; 36600; 71045; 74018; 74019; 74022; 74176; 74250; 80048; 80053; 80202; 82274; 82607; 82728; 82805; 83540; 83605; 83735; 83880; 84100; 84443; 84484; 85025; 85610; 86141; 86850; 86900; 86901; 87081; 87324; 87449; 87505; 93005; 93010; 93306; J0282; J0360; J0692; J1160; J1650; J1815; J2272; J2354; J2405; J2470; J2543; J2765; J3370; J3370-JW; J3473; J3480; J3490; J7030; J7050; J7070; J7120; P9016; P9047; Q0162; Q9963

== ENCOUNTER 2024-04-21 09:58 | Inpatient (IN) | payer MEDICARE, MEDICAID ==
[2024-04-21] MEDS ORDERED: Piperacillin/Tazobactam 4.5 GM VIAL ONE (10:44)
[2024-04-21] MEDS ORDERED: Sodium Chloride 0.9% 100 ML ONE (10:44)
[2024-04-21 10:51] LABS: Hematocrit 31.7 % (42.0-52.0); Hemoglobin 9.3 g/dL (14.0-18.0); Mean Corpuscular HGB CONC 29.3 g/dL (32.0-36.0); Mean Corpuscular Hemoglobin 24.7 pg (27.0-31.0); Mean Corpuscular Volume 84.1 fL (78.0-98.0); Mean Platelet Volume 9.9 fL (7.4-10.4); Platelet Count 483 10x3/uL (130-400); RBC Distribution Width 25.8 % (11.5-14.5); Red Blood Cell (RBC) Count 3.77 mill/uL (4.70-6.10)
[2024-04-21 11:01] LABS: ALT (SGPT) 12 U/L (8-55); AST (SGOT) 17 U/L (5-34); Albumin 2.7 g/dL (3.4-4.8); Alkaline Phosphatase 95 U/L (40-110); Anion Gap 13 mmol/L (10-20); BUN (Urea Nitrogen) 15 mg/dL (8.4-25.7); Bilirubin, Total 1.7 mg/dL (0.2-1.2); Calc. Creatinine Clearance 0 mL/min (70-130); Calcium 8.7 mg/dL (7.8-10.44); Carbon Dioxide 20 mmol/L (23-31); Chloride 100 mmol/L (98-107); Estimated GFR 50; Globulin 5.2 g/dL (2.4-3.5); Glucose 248 mg/dL (80-115); Potassium 4.2 mmol/L (3.5-5.1); Protein, Total 7.9 g/dL (5.8-8.1); Sodium 129 mmol/L (136-145)
[2024-04-21 11:22] LABS: Anisocytosis MODERATE=16-30 cells HPF (0-5); Band 1 % (5-11); Burr Cells SLIGHT = 2-5 cells HPF (0-1); Lymphocytes 6 % (21-51); Monocytes 5 % (0-10); Neutrophil 88 % (42-75); Platelet Adequacy Comment Platelets Increased; Polychromasia MODERATE = 3-4 cells HPF (0-2); Schistocytes SLIGHT = 2-5 cells HPF (0-1); Target Cells SLIGHT = 2-5 cells HPF (0-1)
[2024-04-21 11:30] LABS: Bacteria/HPF 4+ HPF (None Seen); Bilirubin Negative (Negative); Blood, Urine Trace (Negative); CAUTI Indications for Culture Pelvic or flank pain; Glucose, Urine (Dipstick) >=1000 mg/dL (Negative); Ketone, Urine Negative (Negative); Leukocyte 500 Leu/uL (Negative); Nitrite 1+ (Negative); Protein, Urine (Dipstick) 50 mg/dL (Neg-Trace); RBC/HPF None Seen HPF (0-3); Specific Gravity, Urine 1.013 (1.002-1.036); Squamous Epithelial None Seen HPF (0-3); WBC/HPF Greater than 50 HPF (0-3)
[2024-04-21 11:37] LABS: Clarity Slightly Cloudy (Clear)
[2024-04-21 11:42] LABS: Urine Culture Reflex Yes Yes
[2024-04-21] MEDS ORDERED: Dextrose 5% in Water 1,000 ML IV PRN (13:23)
[2024-04-21] MEDS ORDERED: Glucagon 1 MG/ML KIT IM PRN (13:23)
[2024-04-21] MEDS ORDERED: Dextrose 50% Abboject 50 ML SYRINGE SLOW IVP PRN (13:23)
[2024-04-21] MEDS ORDERED: Insulin Lispro 100 UNIT/ML 10 ML VIAL SC PRN (13:23)
[2024-04-21] MEDS ORDERED: Acetaminophen 650 MG Suppository PR PRN (13:23)
[2024-04-21] MEDS ORDERED: Polyvinyl Alcohol 1.4%/Povidone 0.6% Opth Drops EA EYE PRN (14:58)
[2024-04-21] MEDS: Piperacillin/Tazobactam 3.375 GM in Sodium Chloride 0.9% 100 ML IVPB SCH (15:33)
[2024-04-21] MEDS ORDERED: Iopamidol 370 76% 100 ML VIAL ONE (15:47)
[2024-04-21] MEDS: Acetaminophen 325 MG TAB PO PRN (17:31)
[2024-04-21] MEDS: Insulin Lispro 100 UNIT/ML 10 ML VIAL SC PRN (17:32)
[2024-04-21] MEDS: Ipratropium/Albuterol 3 ML NEB NEB SCH (18:24)
[2024-04-21] MEDS: Guaifenesin DM 100-10/5 ML UDCUP PO PRN (18:30)
[2024-04-21 19:52] VITALS: BMI 33.9
[2024-04-21] MEDS: Apixaban 5 MG TAB PO SCH (20:20)
[2024-04-21] MEDS: Sodium Bicarbonate Tab 325 MG TAB PO SCH (20:20)
[2024-04-22] MEDS: Ondansetron ODT 4 MG TAB PO PRN (08:42)
[2024-04-22] MEDS: Insulin Glargine 30 UNITS/0.3 ML VIAL SC SCH (08:43)
[2024-04-22] MEDS: dilTIAZem CD 180 MG CAP PO SCH (08:44)
[2024-04-22] MEDS: Finasteride 5 MG TAB PO SCH (08:44)
[2024-04-22] MEDS: Tamsulosin HCl 0.4 MG CAP PO SCH (08:44)
[2024-04-22] MEDS: Pantoprazole DR 40 MG TAB PO SCH (08:44)
[2024-04-22] MEDS: Docusate 100 MG CAP PO SCH (08:44)
[2024-04-22] MEDS: Polyethylene Glycol 3350 17 GM Packet PO SCH (08:45)
[2024-04-22 08:51] LABS: ALT (SGPT) 12 U/L (8-55); AST (SGOT) 14 U/L (5-34); Albumin 2.6 g/dL (3.4-4.8); Alkaline Phosphatase 97 U/L (40-110); Anion Gap 12 mmol/L (10-20); BUN (Urea Nitrogen) 15 mg/dL (8.4-25.7); Bilirubin, Total 1.5 mg/dL (0.2-1.2); Calc. Creatinine Clearance 76 mL/min (70-130); Calcium 8.9 mg/dL (7.8-10.44); Carbon Dioxide 21 mmol/L (23-31); Chloride 106 mmol/L (98-107); Estimated GFR 54; Globulin 5.5 g/dL (2.4-3.5); Glucose 146 mg/dL (80-115); Potassium 4.3 mmol/L (3.5-5.1); Protein, Total 8.1 g/dL (5.8-8.1); Sodium 135 mmol/L (136-145)
[2024-04-22 09:00] LABS: #Basophils 0.05 10x3/uL (0.0-0.2); %Basophils 0.3 % (0.0-1.0); %Eosinophils 0.8 % (0.0-10.0); %Lymphocytes 5.7 % (21.0-51.0); %Monocytes 5.3 % (0.0-10.0); %Neutrophils 87.1 % (42.0-75.0); Hematocrit 31.8 % (42.0-52.0); Hemoglobin 9.2 g/dL (14.0-18.0); Mean Corpuscular HGB CONC 28.9 g/dL (32.0-36.0); Mean Platelet Volume 9.7 fL (7.4-10.4); Platelet Count 439 10x3/uL (130-400); RBC Distribution Width 25.7 % (11.5-14.5); Red Blood Cell (RBC) Count 3.83 mill/uL (4.70-6.10)
[2024-04-22 09:36] LABS: Anisocytosis MODERATE=16-30 cells HPF (0-5); Burr Cells SLIGHT = 2-5 cells HPF (0-1); Hypochromia SLIGHT = 6-15 cells HPF (0-5); Platelet Adequacy Comment Platelets Increased; Polychromasia MODERATE = 3-4 cells HPF (0-2); Schistocytes SLIGHT = 2-5 cells HPF (0-1); Target Cells SLIGHT = 2-5 cells HPF (0-1)
[2024-04-22 10:07] VITALS: BMI 33.9
[2024-04-22] MEDS: Bisacodyl 10 MG SUPP PR SCH (12:17)
[2024-04-22] MEDS: Ondansetron PF 4 MG/2 ML Vial IVP PRN (19:36)
[2024-04-23] MEDS: Pantoprazole 40 MG VIAL IVP SCH ×2 (00:25→08:53)
[2024-04-23 00:32] LABS: #Basophils 0.04 10x3/uL (0.0-0.2); %Basophils 0.3 % (0.0-1.0); %Eosinophils 1.2 % (0.0-10.0); %Lymphocytes 7.7 % (21.0-51.0); %Monocytes 7.4 % (0.0-10.0); %Neutrophils 82.7 % (42.0-75.0); Hematocrit 27.6 % (42.0-52.0); Hemoglobin 8.3 g/dL (14.0-18.0); Mean Corpuscular HGB CONC 30.1 g/dL (32.0-36.0); Mean Corpuscular Hemoglobin 24.9 pg (27.0-31.0); Mean Corpuscular Volume 82.6 fL (78.0-98.0); Mean Platelet Volume 9.2 fL (7.4-10.4); Platelet Count 385 10x3/uL (130-400); RBC Distribution Width 25.2 % (11.5-14.5); Red Blood Cell (RBC) Count 3.34 mill/uL (4.70-6.10)
[2024-04-23 00:50] LABS: ALT (SGPT) 12 U/L (8-55); Albumin 2.3 g/dL (3.4-4.8); Alkaline Phosphatase 82 U/L (40-110); Anion Gap 13 mmol/L (10-20); BUN (Urea Nitrogen) 14 mg/dL (8.4-25.7); Bilirubin, Total 1.2 mg/dL (0.2-1.2); Calc. Creatinine Clearance 83 mL/min (70-130); Calcium 8.3 mg/dL (7.8-10.44); Carbon Dioxide 22 mmol/L (23-31); Chloride 105 mmol/L (98-107); Estimated GFR 60; Globulin 4.8 g/dL (2.4-3.5); Glucose 139 mg/dL (80-115); Protein, Total 7.1 g/dL (5.8-8.1); Sodium 136 mmol/L (136-145)
[2024-04-23 00:52] LABS: Anisocytosis SLIGHT = 6-15 cells HPF (0-5); Hypochromia SLIGHT = 6-15 cells HPF (0-5); Microcytosis SLIGHT = 6-15 cells HPF (0-5); Platelet Adequacy Comment Platelets Normal; Polychromasia SLIGHT = 2-3 cells HPF (0-2)
[2024-04-23 01:14] LABS: AST (SGOT) 13 U/L (5-34)
[2024-04-23 06:23] LABS: Hemoglobin 8.7 g/dL (14.0-18.0)
[2024-04-23] MEDS: Amiodarone 200 MG TAB PO SCH (08:51)
[2024-04-23] MEDS: Meropenem 1 GM in Sodium Chloride 0.9% 100 ML IVPB SCH ×2 (12:57→21:29)
[2024-04-23] MEDS ORDERED: Meropenem 1 GM in Sodium Chloride 0.9% 100 ML IVPB SCH (14:00)
[2024-04-23] MEDS: Apixaban 5 MG TAB PO SCH (21:29)
[2024-04-24 05:14] LABS: #Basophils 0.05 10x3/uL (0.0-0.2); %Basophils 0.6 % (0.0-1.0); %Eosinophils 2.1 % (0.0-10.0); %Lymphocytes 14.4 % (21.0-51.0); %Monocytes 11.6 % (0.0-10.0); %Neutrophils 70.6 % (42.0-75.0); Hematocrit 28.8 % (42.0-52.0); Hemoglobin 8.6 g/dL (14.0-18.0); Mean Corpuscular HGB CONC 29.9 g/dL (32.0-36.0); Mean Corpuscular Volume 83.7 fL (78.0-98.0); Mean Platelet Volume 9.6 fL (7.4-10.4); Platelet Count 402 10x3/uL (130-400); RBC Distribution Width 25.1 % (11.5-14.5); Red Blood Cell (RBC) Count 3.44 mill/uL (4.70-6.10)
[2024-04-24 05:24] LABS: Anion Gap 12 mmol/L (10-20); BUN (Urea Nitrogen) 9 mg/dL (8.4-25.7); Calc. Creatinine Clearance 88 mL/min (70-130); Calcium 8.5 mg/dL (7.8-10.44); Carbon Dioxide 23 mmol/L (23-31); Chloride 108 mmol/L (98-107); Estimated GFR 65; Glucose 127 mg/dL (80-115); Potassium 4.1 mmol/L (3.5-5.1); Sodium 139 mmol/L (136-145)
[2024-04-25] MEDS: Melatonin 3 MG TAB PO SCH (02:42)
[2024-04-25 04:56] LABS: #Basophils 0.04 10x3/uL (0.0-0.2); %Basophils 0.5 % (0.0-1.0); %Eosinophils 2.7 % (0.0-10.0); %Lymphocytes 18.2 % (21.0-51.0); %Neutrophils 64.9 % (42.0-75.0); Hematocrit 30.1 % (42.0-52.0); Hemoglobin 8.8 g/dL (14.0-18.0); Mean Corpuscular HGB CONC 29.2 g/dL (32.0-36.0); Mean Corpuscular Hemoglobin 24.4 pg (27.0-31.0); Mean Corpuscular Volume 83.6 fL (78.0-98.0); Mean Platelet Volume 9.5 fL (7.4-10.4); Platelet Count 398 10x3/uL (130-400); RBC Distribution Width 25.1 % (11.5-14.5)
[2024-04-25 05:09] LABS: Anion Gap 13 mmol/L (10-20); BUN (Urea Nitrogen) 7 mg/dL (8.4-25.7); Calc. Creatinine Clearance 89 mL/min (70-130); Calcium 8.9 mg/dL (7.8-10.44); Carbon Dioxide 23 mmol/L (23-31); Chloride 107 mmol/L (98-107); Estimated GFR 66; Glucose 111 mg/dL (80-115); Potassium 3.8 mmol/L (3.5-5.1); Sodium 139 mmol/L (136-145)
[2024-04-25] MEDS: dilTIAZem ER 60 MG CAP PO SCH (08:54)
[2024-04-25] MEDS: Atorvastatin Calcium 40 MG TAB PO SCH (08:55)
[2024-04-25] MEDS: Empagliflozin 10 MG TAB PO SCH (08:55)
[2024-04-25] MEDS ORDERED: Polyethylene Glycol 3350 17 GM Packet PO PRN (10:47)
[2024-04-25] MEDS: Acetaminophen 325 MG TAB PO PRN (12:47)
[2024-04-27 22:11] VITALS: BP 108/66; TEMP 98.4
== END 2024-04-27 22:10 | DRG 871 ==
LOC: ERS 09:58 → T4-B 13:29 → OBSVTOIN 04-23 11:37
PROVIDERS: ADMIT Family Medicine; ATTEND Hospitalist
DX: A41.9 Sepsis, unspecified organism (principal); G93.41 Metabolic encephalopathy; J18.9 Pneumonia, unspecified organism; I13.0 Hypertensive heart and chronic kidney disease with heart failure and stage 1 through stage 4 chronic kidney disease, or unspecified chronic kidney disease; N39.0 Urinary tract infection, site not specified; E87.1 Hypo-osmolality and hyponatremia; E78.5 Hyperlipidemia, unspecified; I25.10 Atherosclerotic heart disease of native coronary artery without angina pectoris; K21.9 Gastro-esophageal reflux disease without esophagitis; Z86.73 Personal history of transient ischemic attack (TIA), and cerebral infarction without residual deficits; E11.22 Type 2 diabetes mellitus with diabetic chronic kidney disease; N18.30 Chronic kidney disease, stage 3 unspecified; I48.91 Unspecified atrial fibrillation; N40.1 Benign prostatic hyperplasia with lower urinary tract symptoms; R33.9 Retention of urine, unspecified; K59.00 Constipation, unspecified; Z79.899 Other long term (current) drug therapy
CPT/HCPCS: 36415; 36416; 51798; 71045; 74177; 80048; 80053; 81001; 83605; 83735; 85025; 87040; 87077; 87086; 87186; 87428; 93005; 94640; 94760; 96374; 96375; 96376; G0378; J1815; J2185; J2405; J2470; J2543; J7620; Q0162